=== PATIENT | female | born 1930 | race Caucasian/White ===

== ENCOUNTER 2018-03-09 11:40 | Inpatient (IN) | payer OTHER, BC ==
[2018-03-09 11:51] VITALS: BMI 24.1
--- NOTE | 2018-03-09 12:19 | PDOC ---
History of Present Illness <Sumi Hogue - Last Filed: 03/09/18 13:37> <Harshad Palomino - Last Filed: 03/16/18 17:31> - General Chief Complaint: Chest Pain Stated Complaint: CHEST PAIN Time Seen by Provider: 03/09/18 12:06 - History of Present Illness Initial Comments: This patient is an 87 year old female with PMHx of hypertension, hyperlipidemia , diverticulitis and herniated disc L4 & L5 , who presents with 5 days of chest pain. Patient describes the chest pain as mid-sternal, moves around and sometimes radiates to left shoulder, sometimes radiates to right shoulder, constant, pressure-like, worse with inhalation, rates 8/10. Patient states that she cant lie flat because of her chest pain and has to sleep with 2 large and 1 small pillow. She also admits to associated nausea, nonproductive cough (for a couple of weeks). She states that she was not on any antibiotics recently and was on a nasal spray and Robitussin for her cough/congestion. She denies any vomiting, fever, chills, or diarrhea. Denies recent travel or sick contacts. Allergies: Ciprofloxacin, Ciprofloxacin HCl. Patient reports that she does not tolerate Narcotics/Pain Medications well. Past Surgical History: prolapse bowel in 2010, bladder lift Social History: Former smoker (quit 50 years ago). Denies alcohol or drug use. PCP: Dr. Santi Cbua (Sumi Hogue) Past History <Sumi Hogue - Last Filed: 03/09/18 13:37> - Past Medical History Cancer: (TACHYCARDIA) Cardiac Disorders: Yes COPD: No CHF: No GI Disorders: Yes (ACID REFLUX DIVERTICULITIS) HTN: Yes Hypercholesterolemia: Yes (CAN'T TOLERATE MEDICATION) - Immunization History Immunization Up to Date: No - Suicide/Smoking/Psychosocial Hx Smoking History: Never smoked Have you smoked in the past 12 months: No If you are a former smoker, when did you quit?: 50YRS AGO Information on smoking cessation initiated: No Hx Alcohol Use: No Drug/Substance Use Hx: No Substance Use Type: None Hx Substance Use Treatment: No <Harshad Palomino - Last Filed: 03/16/18 17:31> - Past Medical History Allergies/Adverse Reactions: Allergies Allergy/AdvReac Type Severity Reaction Status Date / Time levofloxacin [From Levaquin] Allergy Verified 03/14/18 12:32 ciprofloxacin [From Cipro] AdvReac "NAUSEA" Verified 03/14/18 12:32 ciprofloxacin HCl AdvReac "NAUSEA" Verified 03/14/18 12:32 [From Cipro] NARCOTICS AdvReac Nausea Uncoded 03/14/18 12:32 PAIN MEDS AdvReac Nausea Uncoded 03/14/18 12:32 Home Medications: Ambulatory Orders Amlodipine Besylate 7.5 mg PO DAILY 03/09/18 Metoprolol Succinate 25 mg PO DAILY 03/09/18 Potassium Chloride 10 meq PO DAILY 03/09/18 Ranitidine [Zantac -] 150 mg PO DAILY 03/09/18 Ascorbic Acid [C-500] 500 mg PO DAILY 03/15/18 Beta-Carotene(A)-Vits C and E [E-400 C-500 & Beta Carotene] 1 tab PO DAILY 03/15 Biotin 5,000 mcg PO DAILY 03/15/18 Calcium Carb, Citrate/Vit D3 [Calcium + D3 ER Tablet] 1 tab PO DAILY 03/15/18 Co Q-10 100 mg Softgel 100 mg PO DAILY 03/15/18 Ferrous Sulfate [Feosol] 350 mg PO DAILY 03/15/18 Flaxseed Oil [Flaxseed] 1,000 mg PO DAILY 03/15/18 Luz Maria Root 550 mg PO DAILY 03/15/18 Glucosamine/MSM/Chondroitin A [Glucosamine Chondroit MSM Tab] 1 tab PO DAILY Magnesium 250 mg PO DAILY 03/15/18 Zinc 15 mg Lozenges 15 mg PO DAILY 03/15/18 Review of Systems <Sumi Hogue - Last Filed: 03/09/18 13:37> <Harshad Palomino - Last Filed: 03/16/18 17:31> - Review of Systems Comments:: CONSTITUTIONAL: No fever, no chills, no fatigue EYES: No visual changes ENT: No ear pain, no sore throat CARDIOVASCULAR: +chest pain, no palpitations RESPIRATORY: +cough, no SOB GI: No abdominal pain, +nausea, no vomiting, no constipation, no diarrhea GENITOURINARY: No dysuria, no frequency, no hematuria MUSKULOSKELETAL: No back pain, no joint pain, no myalgias SKIN: No rash NEURO: No headache (Sumi Hogue) *Physical Exam <Sumi Hogue - Last Filed: 03/09/18 13:37> <Harshad Palomino - Last Filed: 03/16/18 17:31> - Vital Signs Last Vital Signs Temp Pulse Resp BP Pulse Ox 97.6 F 113 H 16 111/79 97 03/10/18 08:13 03/10/18 08:13 03/10/18 08:13 03/10/18 08:13 03/10/18 09:00 - Physical Exam Comments: CONSTITUTIONAL: Well-appearing; well-nourished; in no apparent distress HEAD: Normocephalic; atraumatic EYES: PERRL; EOM intact CARD: Tachycardic. 2/6 systolic ejection murmur. RESP: Normal chest excursion with respiration; breath sounds clear and equal bilaterally; no wheezes, rhonchi, or rales ABD: Soft, non-distended; non-tender; no palpable organomegaly, no palpable hernias EXT: Normal ROM in all four extremities; non-tender to palpation; distal pulses intact SKIN: Warm, dry, no rash NEURO: No focal neurological deficiencies. (Sumi Hogue) Heart Score/ECG Review <Sumi Hogue - Last Filed: 03/09/18 13:37> - History History: Slightly suspicious - Electrocardiogram EKG: Non specific repolarization disturbance - Age Age: >/= 65 - Risk Factors Risk Factors Heart Score: Yes Hx Hypercholesterolemia, Yes Hx Hypertension Based on the list above the patient has:: 1-2 risk factors - Troponin Troponin: </= normal limit - Score Heart Score - Total: 4 <Harshad Palomino - Last Filed: 03/16/18 17:31> - ECG Intrepretation Comment:: EKG interpretation Normal axis Sinus tachycardia Vent rate 114 bpm taken 09-Mar-2018 11:41:14 (Sumi Hogue) ED Treatment Course - LABORATORY CBC & Chemistry Diagram: 03/09/18 13:15 03/09/18 13:15 <Sumi Hogue - Last Filed: 03/09/18 13:37> - LABORATORY CBC & Chemistry Diagram: 03/10/18 06:30 03/10/18 06:30 <Harshad Palomino - Last Filed: 03/16/18 17:31> - ADDITIONAL ORDERS Additional order review: 03/09/18 13:15 RBC 4.28 MCV 88.0 MCHC 34.3 RDW 12.7 MPV 8.4 Neutrophils % 78.4 Lymphocytes % 10.9 D Monocytes % 10.1 Eosinophils % 0.0 D Basophils % 0.6 - RADIOLOGY Radiology Studies Ordered: Category Date Time Status CHEST CT WITH CONTRAST [CT] Stat CT Scan 03/09/18 15:08 Completed CHEST X-RAY PORTABLE* [RAD] Stat Radiology 03/09/18 12:56 Completed - Medications Given in the ED: ED Medications Discontinued Medications Generic Name Dose Route Start Last Admin Trade Name Freq PRN Reason Stop Dose Admin Acetaminophen 650 mg 03/09/18 19:54 03/10/18 05:43 Tylenol - PO 650 mg Q4H PRN Administration PAIN Ascorbic Acid 500 mg 03/09/18 22:00 03/09/18 23:21 Vitamin C - PO Not Given BID CK Aspirin 162 mg 03/09/18 13:29 03/09/18 13:35 Asa - PO 03/09/18 13:30 162 mg ONCE ONE Administration Azithromycin 500 mg 03/09/18 22:00 03/09/18 23:21 Zithromax - PO 03/15/18 22:01 500 mg HS CK Administration Guaifenesin 600 mg 03/09/18 18:29 03/09/18 21:10 Mucinex - PO 03/09/18 18:30 600 mg ONCE ONE Administration Guaifenesin 10 ml 03/09/18 21:27 03/09/18 23:17 Robitussin - PO 10 ml Q6H PRN Administration COUGH Sodium Chloride 500 mls @ 500 mls/hr 03/09/18 15:08 03/09/18 15:18 Normal Saline - IV 03/09/18 16:07 500 mls/hr ASDIR STA Administration Sodium Chloride 1,000 mls @ 50 mls/hr 03/09/18 20:00 03/09/18 21:38 Normal Saline - IV 03/10/18 19:57 50 mls/hr ASDIR CK Administration Levofloxacin 750 mg 03/09/18 21:30 03/09/18 21:39 Levaquin - PO Not Given DAILY CK Nitroglycerin 0.5 inch 03/09/18 13:29 03/09/18 13:35 Nitro-Bid 2% Paste - TD 03/09/18 13:30 0.5 inch ONCE ONE Administration Regadenoson 0.4 mg 03/10/18 12:54 03/11/18 08:14 Lexiscan IVPUSH 03/10/18 12:55 0.4 mg ONCE ONE Administration Medical Decision Making <Sumi Hogue - Last Filed: 03/09/18 13:37> <Harshad Palomino - Last Filed: 03/16/18 17:31> - Medical Decision Making 03/09/18 15:53 87-year-old female with history of hypertension presents with atraumatic chest pressure that has persisted for the past 4 days and is partially pleuritic. Patient's symptoms are exacerbated with supine positioning and her improved while sitting up. EKG shows sinus tachycardia without evidence of acute ischemia right sided heart strain. Chest x-ray reveals left-sided pleural effusion and an elevated left hemidiaphragm. D-dimer is elevated. Will rule out PE with CTA. If no PEs identified, we'll place and of for serial cardiac enzymes with a heart score 5. (Harshad Palomino) *DC/Admit/Observation/Transfer <Sumi Hogue - Last Filed: 03/09/18 13:37> <Harshad Palomino - Last Filed: 03/16/18 17:31> Diagnosis at time of Disposition: Chest pain - Discharge Dispostion Condition at time of disposition: Stable - Attestations Scribe Attestion: 03/09/18 12:57 Documentation prepared by Sumi Hogue, acting as bilingual medical assistant for Harshad Palomino MD. (Sumi Hogue) Physician Attestion: 03/09/18 15:53 The documentation was prepared by the scribe under my direct supervision. I have reviewed the documentation which correctly represents the findings, medical decision-making and critical action taken by me. (Harshad Palomino)
[2018-03-09] MEDS ORDERED: NITROGLYCERIN 2% OINTMENT - 1GM PACKET TD ONE ×2 (13:29→13:32)
[2018-03-09] MEDS ORDERED: ASPIRIN 81 MG CHEWABLE TABLETS PO ONE (13:29)
[2018-03-09 13:30] LABS: BASO % 0.6 % (0-2.0); HEMATOCRIT 37.7 % (32.4-45.2); HEMOGLOBIN 12.9 GM/dL (10.7-15.3); LYMPH % 10.9 % (8-40); MCH 30.2 pg (25.7-33.7); MCHC 34.3 g/dl (32.0-36.0); MEAN PLT VOLUME 8.4 fl (7.5-11.1); MONO % 10.1 % (3.8-10.2); NEUT % 78.4 % (42.8-82.8); PLATELET COUNT 237 K/MM3 (134-434); RBC 4.28 M/mm3 (3.60-5.2); RDW 12.7 % (11.6-15.6); WHITE BLOOD COUNT 8.7 K/mm3 (4.0-10.0)
[2018-03-09] MEDS ORDERED: ASPIRIN 81 MG CHEWABLE TABLETS ONE (13:32)
[2018-03-09 13:47] LABS: INR 1.08 (0.83-1.09); PROTHROMBIN TIME (PATIENT) 12.7 SEC (9.7-13.0)
[2018-03-09 14:13] LABS: ALBUMIN 3.4 g/dl (3.4-5.0); ALK PHOS 84 U/L (45-117); ANION GAP 9 MMOL/L (8-16); BILIRUBIN,TOTAL 0.9 mg/dL (0.2-1); BLOOD UREA NITROGEN 17 mg/dL (7-18); CALCIUM 9.1 mg/dL (8.5-10.1); CHLORIDE 98 mmol/L (98-107); CO2 26 mmol/L (21-32); CREATININE 1.2 mg/dL (0.55-1.3); GLUCOSE,RANDOM 121 mg/dL (74-106); POTASSIUM 4.5 mmol/L (3.5-5.1); SGOT/AST 21 U/L (15-37); SGPT/ALT 24 U/L (13-61); SODIUM 133 mmol/L (136-145); TOT PROT 8.1 g/dl (6.4-8.2)
[2018-03-09] MEDS ORDERED: SODIUM CHLORIDE 500 ML IV STA (15:08)
--- NOTE | 2018-03-09 15:17 | EKG ---
Test Reason : Blood Pressure : / mmHG Vent. Rate : 114 BPM Atrial Rate : 114 BPM P-R Int : 132 ms QRS Dur : 074 ms QT Int : 296 ms P-R-T Axes : 023 -12 113 degrees QTc Int : 407 ms POOR DATA QUALITY, INTERPRETATION MAY BE ADVERSELY AFFECTED SINUS TACHYCARDIA ABNORMAL QRS-T ANGLE, CONSIDER PRIMARY T WAVE ABNORMALITY ABNORMAL ECG WHEN COMPARED WITH ECG OF 19-JUL-2016 04:02, VENT. RATE HAS INCREASED BY 38 BPM NONSPECIFIC T WAVE ABNORMALITY NO LONGER EVIDENT IN INFERIOR LEADS T WAVE INVERSION NO LONGER EVIDENT IN ANTERIOR LEADS Confirmed by TUCKER LOWRY, CHARLIE ([id number]) on 03/09/2018 3:16:42 PM Referred By: Confirmed By:CHARLIE CEBALLOS MD
--- NOTE | 2018-03-09 18:25 | PDOC ---
*Physical Exam - Vital Signs Last Vital Signs Temp Pulse Resp BP Pulse Ox 98.1 F 110 H 16 136/88 95 03/09/18 11:47 03/09/18 14:00 03/09/18 14:00 03/09/18 14:00 03/09/18 14:00 - Physical Exam Comments: 03/09/18 18:27 Gen: aaox3, ambulates with a steady gait heart: +s1s2 reg lungs: cta b/l abd: soft, nt/nd, +bs ext: no c/c/e ED Treatment Course - LABORATORY CBC & Chemistry Diagram: 03/09/18 13:15 03/09/18 13:15 - ADDITIONAL ORDERS Additional order review: Laboratory Results 03/09/18 03/09/18 03/09/18 13:15 13:15 13:15 PT with INR 12.70 INR 1.08 D-Dimer 780 H Sodium 133 L Potassium 4.5 Chloride 98 Carbon Dioxide 26 Anion Gap 9 BUN 17 Creatinine 1.2 Creat Clearance w eGFR 42.40 Random Glucose 121 H Calcium 9.1 Total Bilirubin 0.9 AST 21 ALT 24 Alkaline Phosphatase 84 Creatine Kinase 65 Troponin I < 0.02 Total Protein 8.1 Albumin 3.4 03/09/18 13:15 RBC 4.28 MCV 88.0 MCHC 34.3 RDW 12.7 MPV 8.4 Neutrophils % 78.4 Lymphocytes % 10.9 D Monocytes % 10.1 Eosinophils % 0.0 D Basophils % 0.6 - Medications Given in the ED: ED Medications Discontinued Medications Generic Name Dose Route Start Last Admin Trade Name Freq PRN Reason Stop Dose Admin Aspirin 162 mg 03/09/18 13:29 03/09/18 13:35 Asa - PO 03/09/18 13:30 162 mg ONCE ONE Administration Sodium Chloride 500 mls @ 500 mls/hr 03/09/18 15:08 03/09/18 15:18 Normal Saline - IV 03/09/18 16:07 500 mls/hr ASDIR STA Administration Nitroglycerin 0.5 inch 03/09/18 13:29 03/09/18 13:35 Nitro-Bid 2% Paste - TD 03/09/18 13:30 0.5 inch ONCE ONE Administration Medical Decision Making - Medical Decision Making 03/09/18 18:26 a/p: 87yo female with cp -pt signed out pending ct imaigng -ct shows a small pericardial effusion and atelectasis in LLL -pt with recent URI - bedside ultrasound shows small pericardial effusion without tamponade physiology -will place pt in obs for eval of cp -case discussed with Mena from [facility] - PMD dr. cuba who is covered by [facility] who is covered by [employer] overnight. -accepts pt to service *DC/Admit/Observation/Transfer Diagnosis at time of Disposition: Chest pain - Discharge Dispostion Decision to Admit order: Yes - Referrals Referrals: Santi Cuba MD [Primary Care Provider] - - Patient Instructions - Post Discharge Activity - Attestations Physician Attestion: 03/09/18 18:25 I, Dr. Nikky Wells, DO, attest that this document has been prepared under my direction and personally reviewed by me in its entirety. I further attest, that it accurately reflects all work, treatment, procedures and medical decision -making performed by me.
[2018-03-09] MEDS ORDERED: guaiFENesin 600 MG TABLET.ER (FP) PO ONE (18:29)
--- NOTE | 2018-03-09 19:51 | HP ---
CHIEF COMPLAINT: PCP: [facility] HISTORY OF PRESENT ILLNESS: Patient is a 87 y/o CF with a PMH significant for HTN, GERD presents with atypical chest pain. She has no prior CV history; last stress test 5 years ago and she has since fractured her hip so she wouldn't be able to do treadmill again. No prior cath records or history of CA or stroke. She was brought to the ER today for chest pain that would intermittently radiate to the b/l shoulders x1 day with this severity but that started developing on wednesday that is waxing and waning and got to be moderate in severity. Nothing made it better or worse, hadn't had pain like that previously. The pain is associated with a cough; she was seen with a phone visit by her PCP ~14 days ag No SOB, syncope, etc. Hemodynamics stable, EKG done in ER without convincing ST-T changes, CXR without convincing findings. Initial troponin negative; did have elevated D Dimer so she had CTA done. CTA showed a small pericardial effusion, lung nodule, possible atelectic appearing changes in the lower lobe. Admitting to the medicine service Recent Travel: None PAST MEDICAL HISTORY: HTN, GERD PAST SURGICAL HISTORY: Hip replacement Social History: Smoking: Denies Alcohol: Denies Drugs: Denies Family History: Allergies ciprofloxacin [From Cipro] Adverse Reaction (Verified 03/09/18 12:52) "NAUSEA" ciprofloxacin HCl [From Cipro] Adverse Reaction (Verified 03/09/18 12:52) "NAUSEA" NARCOTICS Adverse Reaction (Uncoded 03/09/18 12:52) Nausea PAIN MEDS Adverse Reaction (Uncoded 03/09/18 12:52) Nausea HOME MEDICATIONS: Home Medications Medication Instructions Recorded Ascorbic Acid [Vitamin C -] 500 mg PO BID tablet 07/24/16 Amlodipine Besylate 7.5 mg PO DAILY 03/09/18 Metoprolol Succinate 25 mg PO DAILY 03/09/18 Potassium Chloride 10 meq PO DAILY 03/09/18 Ranitidine [Zantac -] 150 mg PO DAILY 03/09/18 REVIEW OF SYSTEMS 10 item ROS done and is negative aside from HPI PHYSICAL EXAMINATION Vital Signs - 24 hr 03/09/18 03/09/18 11:47 14:00 Temperature 98.1 F Pulse Rate 111 H Pulse Rate [ 110 H Left Radial] Respiratory 16 16 Rate Blood Pressure 136/91 Blood Pressure 136/88 [Right Arm] O2 Sat by Pulse 95 Oximetry (%) GENERAL: Awake, alert, and fully oriented, in no acute distress. HEAD: Normal with no signs of trauma. EYES: Pupils equal, round and reactive to light, extraocular movements intact, sclera anicteric, conjunctiva clear. No lid lag. EARS, NOSE, THROAT: Ears normal, nares patent, oropharynx clear without exudates. Moist mucous membranes. NECK: Normal range of motion, supple without lymphadenopathy, JVD, or masses. LUNGS: Breath sounds equal, clear to auscultation bilaterally. No wheezes, and no crackles. No accessory muscle use. HEART: Regular rate and rhythm, normal S1 and S2 without murmur, rub or gallop. Reproducible chest pain ABDOMEN: Soft, nontender, not distended, normoactive bowel sounds, no guarding, no rebound, no masses. No hepatomegaly or splenomegaly. MUSCULOSKELETAL: Normal range of motion at all joints. No bony deformities or tenderness. No CVA tenderness. UPPER EXTREMITIES: 2+ pulses, warm, well-perfused. No cyanosis. No clubbing. No peripheral edema. LOWER EXTREMITIES: 2+ pulses, warm, well-perfused. No calf tenderness. No peripheral edema. NEUROLOGICAL: Cranial nerves II-XII intact. Normal speech. Normal gait. PSYCHIATRIC: Cooperative. Good eye contact. Appropriate mood and affect. SKIN: Warm, dry, normal turgor, no rashes or lesions noted, normal capillary refill. Laboratory Results - last 24 hr 03/09/18 03/09/18 03/09/18 13:15 13:15 13:15 WBC 8.7 RBC 4.28 Hgb 12.9 Hct 37.7 MCV 88.0 MCH 30.2 MCHC 34.3 RDW 12.7 Plt Count 237 MPV 8.4 Absolute Neuts (auto) 6.8 Neutrophils % 78.4 Lymphocytes % 10.9 D Monocytes % 10.1 Eosinophils % 0.0 D Basophils % 0.6 Nucleated RBC % 0 PT with INR 12.70 INR 1.08 D-Dimer 780 H Sodium Potassium Chloride Carbon Dioxide Anion Gap BUN Creatinine Creat Clearance w eGFR Random Glucose Calcium Total Bilirubin AST ALT Alkaline Phosphatase Creatine Kinase Troponin I Total Protein Albumin 03/09/18 13:15 WBC RBC Hgb Hct MCV MCH MCHC RDW Plt Count MPV Absolute Neuts (auto) Neutrophils % Lymphocytes % Monocytes % Eosinophils % Basophils % Nucleated RBC % PT with INR INR D-Dimer Sodium 133 L Potassium 4.5 Chloride 98 Carbon Dioxide 26 Anion Gap 9 BUN 17 Creatinine 1.2 Creat Clearance w eGFR 42.40 Random Glucose 121 H Calcium 9.1 Total Bilirubin 0.9 AST 21 ALT 24 Alkaline Phosphatase 84 Creatine Kinase 65 Troponin I < 0.02 Total Protein 8.1 Albumin 3.4 ASSESSMENT/PLAN: Mrs. Franco is an 87 y/o CF presenting with atypical chest pain; she is moderate risk for CAD. She presents after 14 days of cough and congestion. 1) Chest Pain, rule out ACS -Pt. with atypical cardiac chest pain but moderate risk due to age and HTN. -Monitor on telemetry, trend troponin -Due to h/o hip replacement Lexiscan in AM. Consider CV consultation if deemed appropriate. -Other causes could likely be chest wall pain from coughing, costochondritis, etc. 2) Upper Respiratory Tract Infection -14 days in length putting her at risk for bacterial superinfection; thought the LLL changes on CT could represent atelectesis, there is concern for underlying pneumonia due to her sx. Thus we will elect to cover with a 7 day course of levaquin and check urine pneumococcus, legionella, and sputum cultures. PRN guaifenisen. 3) HTN -Continue home meds 4) GERD -Continue home meds 5) Osteoarthritis -Stable, PRN APAP Full Code Visit type - Emergency Visit Emergency Visit: No - New Patient This patient is new to me today: Yes Date on this admission: 03/09/18 - Critical Care Critical Care patient: No
[2018-03-09] MEDS ORDERED: NITROGLYCERIN SUBLINGUAL 1/150 0.4 MG TAB SL PRN (19:54)
[2018-03-09] MEDS ORDERED: SODIUM CHLORIDE 1,000 ML IV SCH (20:00)
[2018-03-09] MEDS ORDERED: guaiFENesin 200 MG/10 ML 10 ML UNIT-DOSE CUPS PO PRN (21:27)
[2018-03-09] MEDS ORDERED: AZITHROMYCIN 250 MG TABLET PO SCH ×2 (22:00)
[2018-03-09] MEDS ORDERED: ASCORBIC ACID 500 MG TABLET (FP) PO SCH (22:00)
[2018-03-09 22:38] LABS: CHOLESTEROL 195 mg/dL (50-200); HDL CHOLESTEROL 59 mg/dL (40-60); TRIGLYCERIDES 102 mg/dL (0-150)
[2018-03-09] MEDS ORDERED: AZITHROMYCIN 250 MG TABLET ONE (22:52)
[2018-03-09] MEDS ORDERED: ACETAMINOPHEN 325 MG TABLET (FP) ONE (23:12)
[2018-03-09] MEDS ORDERED: guaiFENesin 200 MG/10 ML 10 ML UNIT-DOSE CUPS ONE (23:14)
[2018-03-09] MEDS: ACETAMINOPHEN 325 MG TABLET (FP) PO PRN (23:18)
[2018-03-10] MEDS ORDERED: ACETAMINOPHEN 325 MG TABLET (FP) ONE (05:40)
[2018-03-10] MEDS: ACETAMINOPHEN 325 MG TABLET (FP) PO PRN (05:43)
[2018-03-10 06:57] LABS: BASO % 0.2 % (0-2.0); EOS % 0.3 % (0-4.5); HEMATOCRIT 34.4 % (32.4-45.2); HEMOGLOBIN 11.6 GM/dL (10.7-15.3); LYMPH % 5.9 % (8-40); MCH 29.5 pg (25.7-33.7); MCHC 33.6 g/dl (32.0-36.0); MEAN CELL VOLUME 87.9 fl (80-96); MEAN PLT VOLUME 7.9 fl (7.5-11.1); MONO % 8.2 % (3.8-10.2); NEUT % 85.4 % (42.8-82.8); PLATELET COUNT 188 K/MM3 (134-434); RBC 3.91 M/mm3 (3.60-5.2); RDW 13.2 % (11.6-15.6); WHITE BLOOD COUNT 8.6 K/mm3 (4.0-10.0)
[2018-03-10 07:25] LABS: ALBUMIN 2.7 g/dl (3.4-5.0); ALK PHOS 73 U/L (45-117); ANION GAP 7 MMOL/L (8-16); BILIRUBIN,TOTAL 0.9 mg/dL (0.2-1); BLOOD UREA NITROGEN 12 mg/dL (7-18); CALCIUM 7.4 mg/dL (8.5-10.1); CHLORIDE 106 mmol/L (98-107); CO2 23 mmol/L (21-32); CREATININE 0.9 mg/dL (0.55-1.3); GLUCOSE,RANDOM 110 mg/dL (74-106); MAGNESIUM 1.8 mg/dL (1.8-2.4); POTASSIUM 3.5 mmol/L (3.5-5.1); SGOT/AST 14 U/L (15-37); SGPT/ALT 16 U/L (13-61); SODIUM 136 mmol/L (136-145); TOT PROT 6.5 g/dl (6.4-8.2)
[2018-03-10 07:38] LABS: INR 1.26 (0.83-1.09); PROTHROMBIN TIME (PATIENT) 14.9 SEC (9.7-13.0)
[2018-03-10 08:14] VITALS: BP 111/79; PULSE 113; TEMP 97.6
--- NOTE | 2018-03-10 08:42 | PN ---
Progress Note (short form) - Note Progress Note: Dr. Maddox to document today. Cardiology consult placed.
[2018-03-10] MEDS ORDERED: ENOXAPARIN NA (PORCINE) 30 MG/0.3 ML DISP.SYRIN SQ SCH (10:00)
[2018-03-10] MEDS ORDERED: amLODIPine BESYLATE 5 MG TABLET (FP) PO SCH (10:00)
[2018-03-10] MEDS ORDERED: RANITIDINE HCL 150 MG TABLET (FP) PO SCH (10:00)
[2018-03-10] MEDS ORDERED: ASPIRIN COATED 81 MG TABLET.EC PO SCH (10:00)
[2018-03-10] MEDS ORDERED: metoPROLOL SUCCINATE 25 MG TAB.SR.24H (FP) PO SCH (10:00)
[2018-03-10] MEDS ORDERED: AMLODIPINE BESYLATE 5 MG, AMLODIPINE BESYLATE 2.5 MG PO SCH (10:00)
--- NOTE | 2018-03-10 11:41 | CON.CARD ---
Cardiology Consult (text) - Consultation Consultation Note: CC: cp hpi: 87 yo f with hypertension, hyperlipidemia, diverticulitis, GERD, diverticulitis, herniated disc, who presents with cp. Recent URI with cough, improving. Then yesterday noticed achey pain in shoulders, left and right chest , left neck. Worse with cough and deep breaths. No sob palps dizzy loc pnd orthopnea le edema. PMHx: per hpi Past Surgical History: hip Social History: Former smoker (quit 50 years ago). Denies alcohol or drug use. Family hx: sister with MN in her 40's. Sister with chf. ROS: per hpi; no nvd fever vision changes, muscle pain gib hematuria dysuria meds: Home Medications Medication Instructions Recorded Ascorbic Acid [Vitamin C -] 500 mg PO BID tablet 07/24/16 Amlodipine Besylate 7.5 mg PO DAILY 03/09/18 Metoprolol Succinate 25 mg PO DAILY 03/09/18 Potassium Chloride 10 meq PO DAILY 03/09/18 Ranitidine [Zantac -] 150 mg PO DAILY 03/09/18 pe: Vital Signs Period Temp Pulse Resp BP Sys/Hurtado Pulse Ox Last 24 Hr 97.6 F-98.7 F 80-113 16-16 98-136/76-91 95-97 NAD, calm JVD flat, neck supple CTAB, nl effort RRR nl s1, s2 no mrg + bs soft nt nd ext without e/c/c + dp/pt no carotid bruits aaox3 no jaundice, diaphoresis Laboratory Last Values WBC 8.6 K/mm3 (4.0-10.0) 03/10/18 06:30 RBC 3.91 M/mm3 (3.60-5.2) 03/10/18 06:30 Hgb 11.6 GM/dL (10.7-15.3) 03/10/18 06:30 Hct 34.4 % (32.4-45.2) 03/10/18 06:30 MCV 87.9 fl (80-96) 03/10/18 06:30 MCH 29.5 pg (25.7-33.7) 03/10/18 06:30 MCHC 33.6 g/dl (32.0-36.0) 03/10/18 06:30 RDW 13.2 % (11.6-15.6) 03/10/18 06:30 Plt Count 188 K/MM3 (134-434) D 03/10/18 06:30 MPV 7.9 fl (7.5-11.1) 03/10/18 06:30 Absolute Neuts (auto) 7.4 K/mm3 (1.5-8.0) 03/10/18 06:30 Neutrophils % 85.4 % (42.8-82.8) H 03/10/18 06:30 Lymphocytes % 5.9 % (8-40) L D 03/10/18 06:30 Monocytes % 8.2 % (3.8-10.2) 03/10/18 06:30 Eosinophils % 0.3 % (0-4.5) D 03/10/18 06:30 Basophils % 0.2 % (0-2.0) 03/10/18 06:30 Nucleated RBC % 0 % (0-0) 03/10/18 06:30 PT with INR 14.90 SEC (9.7-13.0) H 03/10/18 06:30 INR 1.26 (0.83-1.09) H 03/10/18 06:30 D-Dimer 780 ng/ml (0-500) H 03/09/18 13:15 Sodium 136 mmol/L (136-145) 03/10/18 06:30 Potassium 3.5 mmol/L (3.5-5.1) 03/10/18 06:30 Chloride 106 mmol/L (98-107) 03/10/18 06:30 Carbon Dioxide 23 mmol/L (21-32) 03/10/18 06:30 Anion Gap 7 MMOL/L (8-16) L 03/10/18 06:30 BUN 12 mg/dL (7-18) 03/10/18 06:30 Creatinine 0.9 mg/dL (0.55-1.3) 03/10/18 06:30 Creat Clearance w eGFR 59.09 (>60) 03/10/18 06:30 Random Glucose 110 mg/dL (74-106) H 03/10/18 06:30 Hemoglobin A1c % 5.6 % (4.2-6.3) 03/09/18 20:45 Calcium 7.4 mg/dL (8.5-10.1) L 03/10/18 06:30 Magnesium 1.8 mg/dL (1.8-2.4) 03/10/18 06:30 Total Bilirubin 0.9 mg/dL (0.2-1) 03/10/18 06:30 AST 14 U/L (15-37) L 03/10/18 06:30 ALT 16 U/L (13-61) 03/10/18 06:30 Alkaline Phosphatase 73 U/L (45-117) 03/10/18 06:30 Creatine Kinase 21 IU/L (26-192) L 03/10/18 01:00 Troponin I 0.02 ng/ml (0.00-0.05) 03/10/18 01:00 Total Protein 6.5 g/dl (6.4-8.2) 03/10/18 06:30 Albumin 2.7 g/dl (3.4-5.0) L 03/10/18 06:30 Triglycerides 102 mg/dL (0-150) 03/09/18 20:45 Cholesterol 195 mg/dL (50-200) 03/09/18 20:45 Total LDL Cholesterol 125 mg/dL (5-100) H 03/09/18 20:45 HDL Cholesterol 59 mg/dL (40-60) 03/09/18 20:45 ecg: sr nl intervals no ischemic changes CTA chest: no pe, no chf, small peric eff echo 07/2016: nl lv/rv. 1+ lae. 1+ MAC. mod TR. RVSP 40-50. echo 07/2016: limited bubble study, no shunts seen echo 02/2018: nl lv/rv, no sig valve path, nl rvsp, mild peric eff, no tamp stress 07/2016: no ischemic changes. no sx's. nl perfusion. ef 85% mibi 02/2018: nl mpi, nl lvef a/p: 87 yo f with hypertension, hyperlipidemia, diverticulitis, GERD, diverticulitis, herniated disc, who presents with cp. cp: -atypical, likely msk s/p recent URI -trops negx3 -ecg unremarkable -echo and nuclear stress test today both unremarkable htn: -cont home meds hld: -stable pericardial eff: -small effusion, no tamponade, possibly related to recent viral illness -check repeat echo as outpt in 2 weeks [facility] [place] for dc
--- NOTE | 2018-03-10 12:07 | EKG ---
Test Reason : Blood Pressure : / mmHG Vent. Rate : 109 BPM Atrial Rate : 109 BPM P-R Int : 136 ms QRS Dur : 082 ms QT Int : 336 ms P-R-T Axes : 025 -09 112 degrees QTc Int : 452 ms SINUS TACHYCARDIA NONSPECIFIC ST AND T WAVE ABNORMALITY ABNORMAL ECG WHEN COMPARED WITH ECG OF 09-MAR-2018 11:41, NONSPECIFIC T WAVE ABNORMALITY NOW EVIDENT IN ANTERIOR LEADS Confirmed by LOAN LOWRY, LALO ([id number]) on 03/10/2018 12:07:40 PM Referred By: KINGSLEY CARDONA Confirmed By:LALO CATES MD
[2018-03-10] MEDS ORDERED: REGADENOSON 0.4 MG/5 ML PRE-FILLED SYRINGE IVPUSH ONE ×2 (12:54)
--- NOTE | 2018-03-10 13:28 | ECHO ---
Name: CLARA HANSEN Exam:Adult Echocardiogram Study Date: 03/10/2018 10:17 AM Age: 87 yrs Reason For Study: Pericardial Effusion MMode/2D Measurements & Calculations IVSd: 0.85 cm Ao root diam: 3.3 cm LVIDd: 4.4 cm LA dimension: 4.0 cm LVIDs: 2.6 cm ACS: 1.7 cm LVPWd: 0.94 cm IVSs: 1.3 cm LVPWs: 1.0 cm EDV(Teich): 89.0 ml ESV(Teich): 25.5 ml Doppler Measurements & Calculations MV E max tramaine: 59.5 cm/sec Ao V2 max: 134.8 cm/sec MV A max tramaine: 104.6 cm/sec Ao max P.3 mmHg MV E/A: 0.57 Ao V2 mean: 100.2 cm/sec Ao mean P.5 mmHg Ao V2 VTI: 21.2 cm TR max tramaine: 214.8 cm/sec Med Peak E' Tramaine: 6.2 cm/sec TR max P.5 mmHg Med E/e': 9.5 Lat Peak E' Tramaine: 5.6 cm/sec Lat E/e': 10.7 Procedure A complete two-dimensional transthoracic echocardiogram was performed (2D, M-mode, Doppler and color flow Doppler). Left Ventricle The left ventricular size, thickness and function are normal. The left ventricular ejection fraction is normal. Ejection Fraction = 60-65%. The left ventricular wall motion is normal. Right Ventricle The right ventricle is normal in size and function. Atria Normal left and right atrial size and function. Mitral Valve There is no mitral regurgitation noted. Tricuspid Valve There is trace tricuspid regurgitation. Right ventricular systolic pressure is normal. Aortic Valve No hemodynamically significant valvular aortic stenosis. No aortic regurgitation is present. Pulmonic Valve There is no pulmonic valvular regurgitation. Great Vessels The aortic root is normal size. Pericardium/Pleura There is a mild pericardial effusion. There are no echocardiographic indications of cardiac tamponade . Interpretation Summary The left ventricular size, thickness and function are normal The right ventricle is normal in size and function. There is trace tricuspid regurgitation. There is a mild pericardial effusion. There are no echocardiographic indications of cardiac tamponade. MD Melo Joy 03/10/2018 01:27 PM
--- NOTE | 2018-03-10 15:01 | DS ---
Physical Examination Vital Signs: Vital Signs Temperature 36.4 C 03/10/18 08:13 Pulse Rate 113 H 03/10/18 08:13 Respiratory Rate 16 03/10/18 08:13 Blood Pressure 111/79 03/10/18 08:13 O2 Sat by Pulse Oximetry (%) 97 03/10/18 09:00 Constitutional: Yes: Well Nourished, No Distress, Calm Cardiovascular: Yes: Regular Rate and Rhythm. No: Gallop, Murmur, Rub Respiratory: Yes: Regular, CTA Bilaterally. No: Rales, Rhonchi, Wheezes Gastrointestinal: Yes: Normal Bowel Sounds, Soft. No: Distention, Tenderness Extremities: Yes: WNL Edema: No Labs: CBC, BMP 03/10/18 06:30 03/10/18 06:30 Discharge Summary Reason For Visit: CHEST PAIN Current Active Problems Chest pain (Acute) Hospital Course: 1) Chest Pain, rule out ACS 2) Bronchitis 3) HTN 4) GERD 5) Osteoarthritis Ms Franco is an 87 year old female who presents with chest pain. She was admitted under observation and monitored on telemetry. Cardiac enzymes x3 were sent and negative. ECHO and stress test was performed and also negative. She was seen by cardiology and cleared. Patient has pleurisy and bronchitis. Discussed treatment with her that patient declined secondary to "medication sensitivity". She desires to only take tylenol. Currently she is stable for discharge home with follow up with Dr Cuba for further care. Condition: Stable - Instructions Diet, Activity, Other Instructions: resume previous diet and activity Referrals: Santi Cuba MD [Primary Care Provider] - Melo Joy MD [Staff Physician] - Disposition: HOME - Home Medications Comprehensive Discharge Medication List: Ambulatory Orders Ascorbic Acid [Vitamin C -] 500 mg PO BID tablet 07/24/16 Amlodipine Besylate 7.5 mg PO DAILY 03/09/18 Metoprolol Succinate 25 mg PO DAILY 03/09/18 Potassium Chloride 10 meq PO DAILY 03/09/18 Ranitidine [Zantac -] 150 mg PO DAILY 03/09/18
== END 2018-03-10 16:00 | disposition home or self-care (01) | DRG 313 ==
LOC: JER 11:40 → JERBED 18:28 → OBSVTOIN 19:54
PROVIDERS: ADMIT Internal Medicine; ATTEND Internal Medicine
DX: R07.89 Other chest pain (principal); J98.11 Atelectasis; I31.3 Pericardial effusion (noninflammatory); I10 Essential (primary) hypertension; E78.5 Hyperlipidemia, unspecified; M51.26 Other intervertebral disc displacement, lumbar region; K21.9 Gastro-esophageal reflux disease without esophagitis; J06.9 Acute upper respiratory infection, unspecified; M19.90 Unspecified osteoarthritis, unspecified site; Z96.649 Presence of unspecified artificial hip joint; J40 Bronchitis, not specified as acute or chronic; Z87.891 Personal history of nicotine dependence
CPT/HCPCS: 36415; 71045-TC-FY; 71260-TC; 78452-TC; 80053; 80061; 82550; 83036; 83721; 83735; 84484; 85025; 85379; 85610; 93005; 93010; 93017; 93306-TC; 99285-25; A9502; G0378; J2785; J7030

== ENCOUNTER 2018-03-14 11:32 | Inpatient (IN) | payer OTHER, BC ==
--- NOTE | 2018-03-14 12:13 | PDOC ---
History of Present Illness - General Chief Complaint: Nausea/Vomiting Stated Complaint: COUGH NAUSEA Time Seen by Provider: 03/14/18 11:58 History Source: Patient - History of Present Illness Initial Comments: 03/14/18 12:57 The patient is an 87 year old female with a PMH of HTN, HLD, diverticulitis and L4/L5 herniated disc who presents with 4 days of nausea. Patient states she has been nauseous and had limited PO intake as a result. Daughter @ bedside notes some dry heaves but no emesis. Denies any abdominal pain, diarrhea/ constipation, nausea/vomiting. Patient also notes non-productive cough for the last 2 weeks for which she was evaluated in our ED and diagnosed with pleurisy. Allergy: Floroquinolones (hives) Surgical: appendectomy, hysterectomy Social: Denies toxic habits PMD: Dr. Cuba As per EMR patient was evaluated in our ED on 03/09-03/10/18 at which time she was admitted for chest pain. Cardiac enzymes (-) x3. Patient had stress test and TTE which were normal. CT chest was negative for PE, small pericardial effusion, L lower lobe opacity - possibly atelectasis, less likely PNA. Patient discharged home with supportive care. Past History - Past Medical History Allergies/Adverse Reactions: Allergies Allergy/AdvReac Type Severity Reaction Status Date / Time levofloxacin [From Levaquin] Allergy Verified 03/14/18 12:32 ciprofloxacin [From Cipro] AdvReac "NAUSEA" Verified 03/14/18 12:32 ciprofloxacin HCl AdvReac "NAUSEA" Verified 03/14/18 12:32 [From Cipro] NARCOTICS AdvReac Nausea Uncoded 03/14/18 12:32 PAIN MEDS AdvReac Nausea Uncoded 03/14/18 12:32 Home Medications: Ambulatory Orders Amlodipine Besylate 7.5 mg PO DAILY 03/09/18 Metoprolol Succinate 25 mg PO DAILY 03/09/18 Potassium Chloride 10 meq PO DAILY 03/09/18 Ranitidine [Zantac -] 150 mg PO DAILY 03/09/18 Cancer: (TACHYCARDIA) Cardiac Disorders: Yes COPD: No CHF: No GI Disorders: Yes (ACID REFLUX DIVERTICULITIS) HTN: Yes Hypercholesterolemia: Yes - Immunization History Immunization Up to Date: No - Suicide/Smoking/Psychosocial Hx Smoking History: Never smoked Have you smoked in the past 12 months: No If you are a former smoker, when did you quit?: 50YRS AGO Hx Alcohol Use: No Drug/Substance Use Hx: No Substance Use Type: None Hx Substance Use Treatment: No Review of Systems - Review of Systems Constitutional: Yes: Loss of Appetite. No: Chills, Fever, Weakness HEENTM: No: Blurred Vision, Double Vision Respiratory: No: Cough, Shortness of Breath Cardiac (ROS): No: Chest Pain, Lightheadedness, Palpitations, Syncope ABD/GI: Yes: Nausea, Other (watery loose stools, 2 BM daily). No: Constipated, Vomiting : No: Burning, Dysuria *Physical Exam - Physical Exam General Appearance: Yes: Nourished, Thin HEENT: positive: Normal Voice, Hearing Grossly Normal Neck: positive: Trachea midline, Supple Respiratory/Chest: positive: Lungs Clear, Normal Breath Sounds. negative: Labored Respiration, Rales, Wheezing Cardiovascular: positive: S1, S2. negative: Edema, JVD Gastrointestinal/Abdominal: positive: Normal Bowel Sounds, Soft, Other (RUQ and RLQ TTP ) Musculoskeletal: negative: CVA Tenderness (R), CVA Tenderness (L) Heart Score/ECG Review - ECG Impressions Comment:: 03/14/18 13:50 NSR HR 94, no BARTOLO/STD, flat T waves in V1-V6 consistent with previous ECG ED Treatment Course - LABORATORY CBC & Chemistry Diagram: 03/14/18 12:55 03/14/18 12:55 Medical Decision Making - Medical Decision Making 03/14/18 12:58 87 year old female with nausea and vomiting. H/o recent admission for pleurisy. VS unremarkable. PE shows RUQ and RLQ TTP on deep palpation. DDx is broad given abdominal exam and includes: SBO, cholecystitis, bilary colic, mesenteric ischemia, gastritis, less likely r/o ACS (abdominal pain as angingal equivalent) will obtain Troponin x1. Na 126 will administer 2L IV NaCl. Repeat Na @ 4 hour torie. Troponin (-) x1 No leukocytosis 03/14/18 16:31 Patient @ CT 03/14/18 16:54 CXR shows opacified L hemithorax - ? pleural effusion 03/14/18 17:23 Patient reassed @ bedside Symptomatically improved. Awaiting CT read 03/14/18 18:[address] abdomen shows overdistended bladder - no additional acute pathology. Patient has since urinated UA/Uculture pending GB ultrasound negative for acute cholelithiasis/cholecystitis, small GB polyps noted 03/14/18 18:18 Hospitalist service paged for admission 03/14/18 18:36 Case d/w Dr. Souza, requests repeat Na prior to admission 03/14/18 19:01 Repeat Na pending Patient tolerating PO intake, symptomatically improved. Patient signed out to Dr. Gupta (Resident) and Dr. Hancock (Attending). *DC/Admit/Observation/Transfer Diagnosis at time of Disposition: Nausea - Discharge Dispostion Condition at time of disposition: Fair - Referrals Referrals: Santi Cuba MD [Primary Care Provider] - - Patient Instructions - Post Discharge Activity
--- NOTE | 2018-03-14 12:17 | PDOC ---
Attending Attestation - HPI HPI: 03/14/18 14:02 The patient is an 87 year old female with a past medical history of hypertension , diverticulitis, hyperlipidemia, and l4/l5 herniated disc who presents to the emergency department for evaluation of nausea. Patient reports a 4 day history of decreased PO intake secondary to vomiting. Patient reports onset of abdominal pain when coughing strenuously. She reports symptoms started after being discharged last week. Denies fevers, chills, diarrhea, and constipation. - Physicial Exam PE: Vitals: Triage Vital signs reviewed General Appearance: no acute distress, well nourished well developed, Head: Atraumatic, normocephalic Neck: Supple Chest Wall: Nontender Cardiac: Regular rate and rhythm, no murmurs, no rubs, no gallops, Lungs: Clear to auscultation bilateral, good air movement bilaterally, Abdomen: (+)right sided abdominal tenderness to palpation. Extremities: Full range of motion to all extremities, no cyanosis, clubbing, or edema Skin: Warm and dry, no rashes or lesions, no petechiae Psych: normal mood, normal affect - Medical Decision Making 03/14/18 14:06 The patient is an 87 year old female with a past medical history of hypertension , diverticulitis, hyperlipidemia, and l4/l5 herniated disc who presents to the emergency department for evaluation of nausea. Plan: CT scan of abdomen US of abdomen IV fluids <Deidra Fitzgerald - Last Filed: 03/14/18 14:02> - Resident Resident Name: YahairaMadisyn - ED Attending Attestation I have performed the following: I have examined & evaluated the patient, The case was reviewed & discussed with the resident, I agree w/resident's findings & plan, Exceptions are as noted - Medical Decision Making No acute findings on imaging labs notable for hyponatremia we'll admit hospital for correction as well as repeat echo to assess previously noted pericardial effusion <Melo Cottrell - Last Filed: 03/21/18 12:20> Attestations - Attestations Documentation prepared by Deidra Fitzgerald, acting as behavioral medical director for Melo Cottrell MD. <Deidra Fitzgerald - Last Filed: 03/14/18 14:02>
[2018-03-14] MEDS ORDERED: SODIUM CHLORIDE 0.9% 500 ML INFUS.BAG IV ONE ×2 (12:50→14:55)
[2018-03-14] MEDS ORDERED: ONDANSETRON 4 MG/2 ML VIAL IVPUSH ONE (13:05)
[2018-03-14 13:13] LABS: BASO % 0.3 % (0-2.0); EOS % 0.5 % (0-4.5); HEMATOCRIT 33.1 % (32.4-45.2); HEMOGLOBIN 11.3 GM/dL (10.7-15.3); LYMPH % 7.7 % (8-40); MCH 29.9 pg (25.7-33.7); MCHC 34.2 g/dl (32.0-36.0); MEAN CELL VOLUME 87.4 fl (80-96); MEAN PLT VOLUME 7.5 fl (7.5-11.1); MONO % 10.3 % (3.8-10.2); NEUT % 81.2 % (42.8-82.8); PLATELET COUNT 303 K/MM3 (134-434); RBC 3.79 M/mm3 (3.60-5.2); RDW 12.8 % (11.6-15.6); WHITE BLOOD COUNT 7.2 K/mm3 (4.0-10.0)
[2018-03-14] MEDS ORDERED: ONDANSETRON 4 MG/2 ML VIAL ONE (13:33)
[2018-03-14 13:51] LABS: ALBUMIN 2.5 g/dl (3.4-5.0); ALK PHOS 130 U/L (45-117); ANION GAP 9 MMOL/L (8-16); BILIRUBIN,TOTAL 0.5 mg/dL (0.2-1); BLOOD UREA NITROGEN 11 mg/dL (7-18); CALCIUM 8.4 mg/dL (8.5-10.1); CHLORIDE 89 mmol/L (98-107); CO2 27 mmol/L (21-32); CREATININE 0.9 mg/dL (0.55-1.3); GLUCOSE,RANDOM 105 mg/dL (74-106); MAGNESIUM 1.9 mg/dL (1.8-2.4); POTASSIUM 4.3 mmol/L (3.5-5.1); SGOT/AST 27 U/L (15-37); SGPT/ALT 32 U/L (13-61); SODIUM 125 mmol/L (136-145); TOT PROT 6.5 g/dl (6.4-8.2)
[2018-03-14] MEDS ORDERED: METOCLOPRAMIDE HCL INJECTION 10 MG/2 ML VIAL IVPUSH ONE (14:57)
--- NOTE | 2018-03-14 15:04 | EKG ---
Test Reason : Blood Pressure : / mmHG Vent. Rate : 094 BPM Atrial Rate : 094 BPM P-R Int : 126 ms QRS Dur : 082 ms QT Int : 312 ms P-R-T Axes : -11 -15 070 degrees QTc Int : 390 ms NORMAL SINUS RHYTHM NONSPECIFIC T WAVE ABNORMALITY ABNORMAL ECG WHEN COMPARED WITH ECG OF 10-MAR-2018 08:48, NO SIGNIFICANT CHANGE WAS FOUND Confirmed by HUMPHREY JOHNSON MD ([id number]) on 03/14/2018 3:04:12 PM Referred By: Confirmed By:HUMPHREY JOHNSON MD
[2018-03-14] MEDS ORDERED: METOCLOPRAMIDE HCL INJECTION 10 MG/2 ML VIAL IM ONE (18:17)
[2018-03-14 19:02] LABS: URINE APPEARANCE CLEAR; URINE BILIRUBIN NEGATIVE (<2.0 mg/dL); URINE COLOR COLORLESS; URINE GLUCOSE (UA) NEGATIVE (NEGATIVE); URINE KETONE TRACE (NEGATIVE); URINE LEUK ESTERASE NEGATIVE (NEGATIVE); URINE NITRITE NEGATIVE (NEGATIVE); URINE PROTEIN NEGATIVE (NEGATIVE); URINE UROBILINOGEN NEGATIVE mg/dL (0.2-1.0)
[2018-03-14 19:37] LABS: ALBUMIN 2.4 g/dl (3.4-5.0); ALK PHOS 127 U/L (45-117); ANION GAP 13 MMOL/L (8-16); BILIRUBIN,TOTAL 0.5 mg/dL (0.2-1); BLOOD UREA NITROGEN 8 mg/dL (7-18); CALCIUM 7.7 mg/dL (8.5-10.1); CHLORIDE 92 mmol/L (98-107); CO2 22 mmol/L (21-32); CREATININE 0.7 mg/dL (0.55-1.3); GLUCOSE,RANDOM 93 mg/dL (74-106); POTASSIUM 4.2 mmol/L (3.5-5.1); SGOT/AST 27 U/L (15-37); SGPT/ALT 30 U/L (13-61); SODIUM 127 mmol/L (136-145); TOT PROT 6.3 g/dl (6.4-8.2)
[2018-03-14] MEDS ORDERED: METOCLOPRAMIDE HCL INJECTION 10 MG/2 ML VIAL ONE (20:37)
[2018-03-14] MEDS ORDERED: SODIUM CHLORIDE 1,000 ML IV SCH (22:15)
[2018-03-14] MEDS ORDERED: RANITIDINE HCL 150 MG TABLET (FP) PO ONE (22:46)
[2018-03-14] MEDS ORDERED: ONDANSETRON 4 MG/2 ML VIAL IVPB PRN (22:46)
--- NOTE | 2018-03-14 23:21 | HP ---
CHIEF COMPLAINT: nausea PCP: HISTORY OF PRESENT ILLNESS: Patient is a 87 y/o female with a history of HTN, HLD, diverticulitis, and L4/ L5 herniated disc who presents with nausea and vomiting. Patient was admitted to the hospital 5 days ago for chest pain. She had been coughing a lot secondary to URI. She presented to the hospital due to chest pain. A cardiac workup was done and found to be negative and she was discharged. She had been nauseous in the hospital and has continued to have nausea after discharged. She reports having four episodes of NBNB vomiting. She has been having trouble keeping fluids and food down and her po intake has been decreased. She denies having these symptoms in the past. She reports she has been taking over the counter medication (robitussin) for her cough and ranitidine for GERD. At patients last visit she had a chest CT done that showed LLL opacity and pericardial effusion. Patient denies diarrhea, abdominal pain, or chest pain. She reports some difficulty breathing, continued cough, and nausea. ER course was notable for: (1) 2L NS (2) metoclopramide (3) Recent Travel: PAST MEDICAL HISTORY: HTN, HLD, diverticulitis, L4/L5 herniated disc, constipation PAST SURGICAL HISTORY: bowel prolapse, L femoral fracture, bladder sling Social History: Smoking: from age [age] Alcohol: denies Drugs: denies Family History: Allergies ciprofloxacin [From Cipro] Adverse Reaction (Verified 03/14/18 12:32) "NAUSEA" ciprofloxacin HCl [From Cipro] Adverse Reaction (Verified 03/14/18 12:32) "NAUSEA" NARCOTICS Adverse Reaction (Uncoded 03/14/18 12:32) Nausea PAIN MEDS Adverse Reaction (Uncoded 03/14/18 12:32) Nausea HOME MEDICATIONS: Home Medications Medication Instructions Recorded Amlodipine Besylate 7.5 mg PO DAILY 03/09/18 Metoprolol Succinate 25 mg PO DAILY 03/09/18 Potassium Chloride 10 meq PO DAILY 03/09/18 Ranitidine [Zantac -] 150 mg PO DAILY 03/09/18 REVIEW OF SYSTEMS CONSTITUTIONAL: Absent: fever, chills, diaphoresis, generalized weakness, malaise, loss of appetite, weight change HEENT: Absent: rhinorrhea, nasal congestion, throat pain, throat swelling, difficulty swallowing, mouth swelling, ear pain, eye pain, visual changes CARDIOVASCULAR: Absent: chest pain, syncope, palpitations, irregular heart rate, lightheadedness , peripheral edema RESPIRATORY: cough Absent: shortness of breath, dyspnea with exertion, orthopnea, wheezing, stridor , hemoptysis GASTROINTESTINAL: nausea, vomiting Absent: abdominal pain, abdominal distension, diarrhea, constipation, melena, hematochezia GENITOURINARY: Absent: dysuria, frequency, urgency, hesitancy, hematuria, flank pain, genital pain MUSCULOSKELETAL: Absent: myalgia, arthralgia, joint swelling, back pain, neck pain SKIN: Absent: rash, itching, pallor HEMATOLOGIC/IMMUNOLOGIC: Absent: easy bleeding, easy bruising, lymphadenopathy, frequent infections ENDOCRINE: Absent: unexplained weight gain, unexplained weight loss, heat intolerance, cold intolerance NEUROLOGIC: headache, Absent: focal weakness or paresthesias, dizziness, unsteady gait, seizure, mental status changes, bladder or bowel incontinence PSYCHIATRIC: Absent: anxiety, depression, suicidal or homicidal ideation, hallucinations. PHYSICAL EXAMINATION Vital Signs - 24 hr 03/14/18 11:40 Temperature 98.2 F Pulse Rate 55 L Respiratory 16 Rate Blood Pressure 129/78 O2 Sat by Pulse 96 Oximetry (%) GENERAL: Awake, alert, and fully oriented, in no acute distress. HEAD: Normal with no signs of trauma. EYES: Pupils equal, round and reactive to light, extraocular movements intact, sclera anicteric, conjunctiva clear. No lid lag. EARS, NOSE, THROAT: Ears normal, nares patent, oropharynx clear without exudates. Moist mucous membranes. NECK: Normal range of motion, supple without lymphadenopathy, JVD, or masses. LUNGS: Breath sounds equal, clear to auscultation bilaterally. No wheezes, and no crackles. No accessory muscle use. HEART: Regular rate and rhythm, normal S1 and S2 without murmur, rub or gallop. ABDOMEN: Soft, nontender, not distended, normoactive bowel sounds, no guarding, no rebound, no masses. No hepatomegaly or splenomegaly. MUSCULOSKELETAL: Normal range of motion at all joints. No bony deformities or tenderness. No CVA tenderness. UPPER EXTREMITIES: 2+ pulses, warm, well-perfused. No cyanosis. No clubbing. No peripheral edema. LOWER EXTREMITIES: 2+ pulses, warm, well-perfused. No calf tenderness. No peripheral edema. NEUROLOGICAL: Cranial nerves II-XII intact. Normal speech. Normal gait. PSYCHIATRIC: Cooperative. Good eye contact. Appropriate mood and affect. SKIN: Warm, dry, normal turgor, no rashes or lesions noted, normal capillary refill. Laboratory Results - last 24 hr CBC, BMP 03/14/18 12:55 03/14/18 18:50 ASSESSMENT/PLAN: Patient is a 87 y/o female with a history of HTN, HLD, diverticulitis, and L4/ L5 herniated disc who presents with nausea, vomiting, and hyponatremia. #Hyponatremia likely 2/2 to dehydration - received 2 L NS in ED - from 125> 127>125 - f/u legionella antigen - f/u urine lytes, urine osmolality, - serum osmolality 260 - currently holding fluids until further workup of new pleural effusions #Nausea, 2/2 to possible acute cholecystis - Abd US: no evidence of cholelithiasis, mild diffuse gallbladder wall thickening - Abd CT: RUQ soft tissue edema around region of distal stomach and partial duodenal sweep - f/u HIDA, f/u MRI - f/u GI, Dr. Ngo - elevated alk phosp 127 - lipase 200, low suspicion for pancreatitis - Levaquin 750 mg q 24, Flagyl 500 TID - pt states nausea with levaquin but received it last hospital admission without any allergy - Zofran 8mg q8h, QTC 390 #Pericardial effusion - f/u echo - worsening since last seen on imaging - f/u YUE, rheumatoid factor, consider possible viral causes - f/u Dr. Joy, cardio consult #LLL opacity, atelactisis vs PNA - low suspicion for PNA - Levaquin/Flagyl will cover potential respiratory infection - f/u sputum cx - f/ influenza swab - f/u pna urine antigens - encourage incentive spirometry use #B/L pleural effusions - unknown origin - monitor fluid status, currently holding fluids #GERD - continue home ranitidine #Insomnia - ambien 5mg hs Visit type - Emergency Visit Emergency Visit: Yes ED Registration Date: 03/14/18 Care time: The patient presented to the Emergency Department on the above date and was hospitalized for further evaluation of their emergent condition. - New Patient This patient is new to me today: Yes Date on this admission: 03/15/18 - Critical Care Critical Care patient: No
--- NOTE | 2018-03-14 23:27 | PN ---
Teaching Attending Note Name of Resident: Susan Moy ATTENDING PHYSICIAN STATEMENT I saw and evaluated the patient. I reviewed the resident's note and discussed the case with the resident. I agree with the resident's findings and plan as documented. SUBJECTIVE: Patient is an 87 y/o CF whom is known to me from prior admission; she comes to hospital for nausea with several episodes of vomitting. Please refer to resident note for further historical details. In summation, she has been nauseous since she left the hospital; has had several episodes of bilious vomitting and this has all resulted in poor PO intake. Has had waxing and waning abdominal pain and a cough, as well. Was recently admitted to [facility]; was diagnosed with noncardiac chest pain and a small pericardial effusion likely from viral etiology; seen by Dr. Acharya and encouraged to followup with him as an OP for the pericardial effusion, etc. She had a negative stress test on that admission. She had a URI prior to her presentation at that juncture. Today she is found to have RUQ soft tissue edema around the stomach, peripancreatic edema, gallbladder wall thickening, hyponatremia, increased size of her pericardial effusion, hyponatremia with elevated alkaline phosphatase. She got 2L NS down in the ER which did not correct her sodium. She will be brought to the floor for further treatment and monitoring. 10 sys ROS done and negative aside from HPI PMH and PSH as documented Social history reviewed; nonsmoker no EtOH abuse FH asked and noncontributory OBJECTIVE: VSS, all labs and imaging reviewed NAD, resting in bed Mildly tender R-side with minor distention, +BS, no organomeg RRR s1/2 no mgr; no muffling Lungs CTAB with sym expansion Trachea midline, no JVD ASSESSMENT AND PLAN: Patient is an 87 y/o CF presenting today with hyponatremia, pleural effusions, increasing size of pericardial effusion, abdominal discomfort with elevated alk phos, peripancreatic edema and a GB with wall thickening and pericholecystic fluid. 1) Acute Hyponatremia -She appears essentially euvolemic; she was given 2L NS in the ER with little improvement seen in sodium. Calculated Serum Osm is 262 from admission BMP; urine lytes, urine osm pending. Need more information before treating. She is at risk for volume depletion with the vomitting history, but on the other hand has new pleural effusions, etc. which could endorse another more occult process. Will await further workup before more orders are placed regarding fluids. 2) Abdominal pain with elevated alk phos, GB wall thickening and pericholecystic fluid and peripancreatic edema -Patient noted to have aforementioned lab and imaging findings. Raises concern for a cholecystitis; should be noted no stones seen on the US. HIDA recommended and given the pancreatic findings and elevated alk phos will also get MRCP. Consulting GI and surgery. Check lipase, trend CMP. -She tolerated levaquin last time she was here; thus placing on levaquin and flagyl. 3) Moderate Pericardial effusion -Small pericardial effusion seen on CT and echo last admission; appears to have grown to moderate size per radiology on the new CT. Cardiology saw and said followup outpatient during last visit -Repeat echo, consult cardiology. No s/s tamponade. monitor on telemetry. -Cause is unclear; she did have an assumed URI last time she was here. Could have been a viral cause? No uremia, no s/s TB. Check coxsackie virus assay. Monitor clinically. -Checking YUE, RF, ESR, CRP 4) Posterior L-lower lobe atelectesis vs. infiltrate -Seen on previous CT as well; was started on levaquin on admission last time; unsue if she completed course. She would be empirically covered by the abx for #2 but we will also followup a sputum culture and recheck a legionella Ag and pneumococcal Ag. Incentive spirometry should be ordered as well. 5) New Bilateral Pleural Effusions -Unclear cause; normal LVEF on 03/10 echo, never had these in past. Consider viral etiology? Consider diuresis if endorsed by urine osm, etc. with #1. If persists and no explanation obtained can even consider thora in future. Monitor. Respiratory status is baseline now which is reassuring 6) HTN -Continue home meds; monitor 7) HLD -Nonacute, monitor 8) Diverticulosis -No -itis seen on CT, monitor 9) R-renal cyst -Incidental finding on US; followup OP. 10) OA -PRN APAP 11) GERD -Continue home meds Full Code Consults: GI, General Sgy, Cardiology
[2018-03-14] MEDS: HEPARIN NA (PORCINE) 5,000 UNITS/ML 1ML VIAL SQ SCH (23:32)
[2018-03-14] MEDS ORDERED: RANITIDINE HCL 150 MG TABLET (FP) ONE (23:43)
[2018-03-14] MEDS ORDERED: HEPARIN NA (PORCINE) 5,000 UNITS/ML 1ML VIAL ONE (23:44)
[2018-03-15 00:52] LABS: POTASSIUM 3.7 mmol/L (3.5-5.1)
[2018-03-15] MEDS ORDERED: ONDANSETRON 4 MG/2 ML VIAL IVPUSH ONE (01:01)
[2018-03-15] MEDS ORDERED: ONDANSETRON 4 MG/2 ML VIAL ONE (02:02)
[2018-03-15 05:58] LABS: BASO % 0.3 % (0-2.0); EOS % 0.3 % (0-4.5); HEMATOCRIT 31.8 % (32.4-45.2); HEMOGLOBIN 10.8 GM/dL (10.7-15.3); LYMPH % 8.9 % (8-40); MCH 29.9 pg (25.7-33.7); MCHC 34.1 g/dl (32.0-36.0); MEAN CELL VOLUME 87.9 fl (80-96); MEAN PLT VOLUME 7.5 fl (7.5-11.1); MONO % 10.5 % (3.8-10.2); PLATELET COUNT 292 K/MM3 (134-434); RBC 3.62 M/mm3 (3.60-5.2); WHITE BLOOD COUNT 6.7 K/mm3 (4.0-10.0)
[2018-03-15] MEDS ORDERED: levoFLOXacin 750 MG TABLET PO SCH (06:00)
[2018-03-15] MEDS ORDERED: metroNIDAZOLE 250 MG TABLET PO SCH (06:00)
[2018-03-15] MEDS ORDERED: HEPARIN NA (PORCINE) 5,000 UNITS/ML 1ML VIAL ONE (06:09)
[2018-03-15 06:11] LABS: ALBUMIN 2.3 g/dl (3.4-5.0); ALK PHOS 115 U/L (45-117); ANION GAP 8 MMOL/L (8-16); BILIRUBIN,TOTAL 0.4 mg/dL (0.2-1); BLOOD UREA NITROGEN 8 mg/dL (7-18); CALCIUM 7.9 mg/dL (8.5-10.1); CHLORIDE 95 mmol/L (98-107); CO2 26 mmol/L (21-32); CREATININE 0.8 mg/dL (0.55-1.3); GLUCOSE,RANDOM 98 mg/dL (74-106); POTASSIUM 3.9 mmol/L (3.5-5.1); SGOT/AST 20 U/L (15-37); SGPT/ALT 26 U/L (13-61); SODIUM 129 mmol/L (136-145)
[2018-03-15] MEDS: HEPARIN NA (PORCINE) 5,000 UNITS/ML 1ML VIAL SQ SCH (06:40)
--- NOTE | 2018-03-15 07:36 | PN ---
Progress Note, Physician Chief Complaint: Nausea improved no vomiting, denies any abd pain History of Present Illness: 87 y/o female with a history of HTN, HLD, diverticulitis, and L4/L5 herniated disc who presents with nausea and vomiting. Patient was admitted to the hospital 5 days ago for chest pain. She had been coughing a lot secondary to URI. She presented to the hospital due to chest pain. A cardiac workup was done and found to be negative and she was discharged, yesterday admitted with ongoing nausea, poor Po intake , coughing and epigastric discomfort in the Ed CBC normal, CMP shows Hyponatremia, normal Lipase and LFTs , abd ultrasound unremarkable except renal cyst and gall bladder Polyp Ct abd show b/L pleural effusion and percardial effusion, today HIDA scan -ve patient abd pain improved. - Current Medication List Current Medications: Active Medications Home Medication List Medication Instructions Recorded Confirmed Type Amlodipine Besylate 7.5 mg PO DAILY 03/09/18 03/14/18 History Metoprolol Succinate 25 mg PO DAILY 03/09/18 03/14/18 History Potassium Chloride 10 meq PO DAILY 03/09/18 03/14/18 History Ranitidine [Zantac -] 150 mg PO DAILY 03/09/18 03/14/18 History Ascorbic Acid [C-500] 500 mg PO DAILY 03/15/18 03/15/18 History Beta-Carotene(A)-Vits C and E 1 tab PO DAILY 03/15/18 03/15/18 History [E-400 C-500 & Beta Carotene] Biotin 5,000 mcg PO DAILY 03/15/18 03/15/18 History Calcium Carb, Citrate/Vit D3 1 tab PO DAILY 03/15/18 03/15/18 History [Calcium + D3 ER Tablet] Co Q-10 100 mg Softgel 100 mg PO DAILY 03/15/18 03/15/18 History Ferrous Sulfate [Feosol] 350 mg PO DAILY 03/15/18 03/15/18 History Flaxseed Oil [Flaxseed] 1,000 mg PO DAILY 03/15/18 03/15/18 History Luz Maria Root 550 mg PO DAILY 03/15/18 03/15/18 History Glucosamine/MSM/Chondroitin A 1 tab PO DAILY 03/15/18 03/15/18 History [Glucosamine Chondroit MSM Tab] Magnesium 250 mg PO DAILY 03/15/18 03/15/18 History Zinc 15 mg Lozenges 15 mg PO DAILY 03/15/18 03/15/18 History Active Medications Active Medications Amlodipine Besylate (Norvasc -) 7.5 mg PO DAILY COUNTS INCLUDE 234 BEDS AT THE [facility] Last Admin: 03/15/18 10:29 Dose: 7.5 mg Sodium Chloride (Normal Saline -) 1,000 mls @ 75 mls/hr IV ASDIR COUNTS INCLUDE 234 BEDS AT THE [facility] Metoprolol Succinate (Toprol Xl -) 25 mg PO DAILY COUNTS INCLUDE 234 BEDS AT THE [facility] Last Admin: 03/15/18 10:29 Dose: 25 mg Ondansetron HCl (Zofran Injection) 8 mg IVPB Q8H PRN PRN Reason: NAUSEA Pantoprazole Sodium (Protonix Iv) 40 mg IVPUSH DAILY COUNTS INCLUDE 234 BEDS AT THE [facility] Last Admin: 03/15/18 13:28 Dose: 40 mg Potassium Chloride (K-Dur -) 10 meq PO DAILY COUNTS INCLUDE 234 BEDS AT THE [facility] Last Admin: 03/15/18 10:29 Dose: 10 meq - Objective Vital Signs: Vital Signs Temperature 97.8 F 03/15/18 06:49 Pulse Rate 88 03/15/18 06:49 Respiratory Rate 18 03/15/18 06:49 Blood Pressure 120/78 03/15/18 06:49 O2 Sat by Pulse Oximetry (%) 98 03/15/18 06:49 Elderly F sitting comfortably not in distress HEENT: Mm moist, no anemia, PERRLA, EOMI NECK: No JVD No Bruit CHEST: B/L Minimal basal crepts decrese AE on Left side CVS; s1S2 R no m/g/r ABD: Soft non tender Bs + EXT: No edema feet, no calf tenderness Pulses + [employer]OTIST: AOX3 non focal Labs: CBC, BMP 03/15/18 05:00 03/15/18 05:00 Problem List - Problems (1) Hyponatremia Assessment/Plan: Improving will F/U BMP in PM most likely decree Po intake will F/U U Lytes and serum and urine osmolality Sr Uric acid level. Can be due to acute Pulmonary process. Cont NS 75 CC F/u serial BMP. BNP and Pro Calcitonin Code(s): E87.1 - HYPO-OSMOLALITY AND HYPONATREMIA (2) Nausea & vomiting Assessment/Plan: Improved abdomen benign exam normal LFTs HIDA -ve, nor,mal ultrasound will Hold Abx cont antiemetics and PPI advance as tolerates. Code(s): R11.2 - NAUSEA WITH VOMITING, UNSPECIFIED Qualifiers: Vomiting type: unspecified Vomiting Intractability: non-intractable Qualified Code(s): R11.2 - Nausea with vomiting, unspecified (3) Pericardial effusion Assessment/Plan: Mild to moderate recent Cardiac w/u -ve most likely due to pericarditis secondary to viral infection will f/u Cardiology recommendations. Code(s): I31.3 - PERICARDIAL EFFUSION (NONINFLAMMATORY) (4) Pleural effusion Assessment/Plan: CXr shows Pleural effusion Left > Rt post viral afebrile, no SOB, generalized ansarca some marcelle around pancreas, left UQ duodenum of unlnown etiology surgery , GI, infectious disease on the case patient has drop in albumin from 3.4 to 2.6 over 5 days, normal LFTS , urine no protein will observe closely and F/U GI and ID input. Code(s): J90 - PLEURAL EFFUSION, NOT ELSEWHERE CLASSIFIED (5) Hypertension Assessment/Plan: Well controlled cont amlodipine Code(s): I10 - ESSENTIAL (PRIMARY) HYPERTENSION Qualifiers: Hypertension type: essential hypertension Qualified Code(s): I10 - Essential (primary) hypertension (6) GERD (gastroesophageal reflux disease) Assessment/Plan: on PPI Code(s): K21.9 - GASTRO-ESOPHAGEAL REFLUX DISEASE WITHOUT ESOPHAGITIS Qualifiers: Esophagitis presence: without esophagitis Qualified Code(s): K21.9 - Gastro -esophageal reflux disease without esophagitis
[2018-03-15 07:59] VITALS: BMI 25.7
[2018-03-15] MEDS ORDERED: POTASSIUM CHLORIDE TABS 10 MEQ TABLET.ER (FP) PO SCH (10:00)
[2018-03-15] MEDS ORDERED: amLODIPine BESYLATE 2.5 MG TABLET (FP) PO SCH (10:00)
[2018-03-15] MEDS ORDERED: metoPROLOL SUCCINATE 25 MG TAB.SR.24H (FP) PO SCH (10:00)
[2018-03-15] MEDS ORDERED: RANITIDINE HCL 150 MG TABLET (FP) PO SCH (10:00)
--- NOTE | 2018-03-15 12:40 | CONSULT ---
Consult Consult Specialty:: General Surgery Referred by:: Dr. Winchester Reason for Consultation:: ?cholecystitis - History of Present Illness Chief Complaint: Nausea, vomiting, epigastric pain, po intolerance History of Present Illness: 87yo F with HTN, GERD/PUD, diverticulosis, h/o diverticulitis, rectal prolapse s /p resection, s/p bladder sling and L hip ORIF, was in hospital last week Wed- Wed with atypical chest pain associated with URI and lingering cough, ruled out for cardiac source. Echo showed EF 60-65% and she had small pericardial effusion and pleural effusions. For the last 2 weeks, she has had URI symptoms including cough, postnasal drip and pain from coughing. She has had nausea and sense of fullness since last week at least, with vomiting when she tries po intake, and sometimes just the feeling that she needs to without actually vomiting. She has not been able to keep down food or her daily meds since mid- last week, when she had some crackers and tea on while on observation in ER. She has not taken her usual meds since last Wednesday. She normally takes Zantac daily for GERD and BP meds. She came back to ER yesterday because she still could not eat. Last EGD at least several years ago, and last colonoscopy about 6 yrs ago (Dr. Alvarenga). She states she had 3 ulcers in the past, and had "one left" last time they looked. She reports diverticulitis in past with mid to low abdominal pain. She has had normal BMs, last 2 days ago. At times, with her coughing, she had some epigastric pain, but is not currently in pain. In the ER, she has normal wbc and LFTs, lipase. Mildly anemic with Hb 11 and 10. Hyponatremic with Na 125-129, Cl 89-95, K down a bit to high 3's. Osmolality was low. Small ketones in urine. US showed no gallstones, few small polyps, mild wall thickening, no pericholecystic fluid, no ductal dilation. CT showed ascites in upper abdomen and RUQ around pancreas, gb, distal stomach and proximal duodenum with inflammation centered around them, mild changes of hepatic flexure, bilateral pleural effusions, increased pericardial effusion, diverticulosis, no obstruction or free air, large right renal cyst. HIDA done this morning visualized gallbladder at 15 minutes. MRI w/contrast was ordered as well. Surgery was asked to assess. She is seen and examined in room, reports feeling better since medication. No current nausea or sig pain, but "I haven't eaten." Reports medium yellow urine. Son Zoran arrived during exam. She was able to ambulate easily to chair to sit. - History Source History Provided By: Patient Limitations to Obtaining History: No Limitations - Past Medical History Cardio/Vascular: Yes: HTN, Hyperlipdemia Gastrointestinal: Yes: Diverticulitis, Diverticulosis, GERD, Peptic Ulcer Disease Reproductive: Yes: Postmenopausal ...: No Musculoskeletal: Yes: Chronic low back pain (herniated discs) - Past Surgical History Additional Surgical History: rectal prolapse resection, bladder sling, left hip ORIF (07/31) - Alcohol/Substance Use Hx Alcohol Use: No History of Substance Use: reports: None - Smoking History Smoking history: Former smoker Have you smoked in the past 12 months: No If you are a former smoker, when did you quit?: 50YRS AGO - Social History ADL: Independent Home Medications - Allergies Allergies/Adverse Reactions: Allergies Allergy/AdvReac Type Severity Reaction Status Date / Time levofloxacin [From Levaquin] Allergy Verified 03/14/18 12:32 ciprofloxacin [From Cipro] AdvReac "NAUSEA" Verified 03/14/18 12:32 ciprofloxacin HCl AdvReac "NAUSEA" Verified 03/14/18 12:32 [From Cipro] NARCOTICS AdvReac Nausea Uncoded 03/14/18 12:32 PAIN MEDS AdvReac Nausea Uncoded 03/14/18 12:32 - Home Medications Home Medications: Ambulatory Orders Amlodipine Besylate 7.5 mg PO DAILY 03/09/18 Metoprolol Succinate 25 mg PO DAILY 03/09/18 Potassium Chloride 10 meq PO DAILY 03/09/18 Ranitidine [Zantac -] 150 mg PO DAILY 03/09/18 Family Disease History - Family Disease History Family Disease History: CA: Father (liver), Sister (unknown) Other Family History: 4 bros, 3 sisters, most of old age; 1 sister with unknown malignancy Review of Systems - Review of Systems Constitutional: reports: Chills (occasionally), Lethargy, Weakness. denies: Fever, Loss of Appetite, Unintentional Wgt. Loss Eyes: reports: Other (reading glasses). denies: Recent Change in Vision HENT: reports: Other (postnasal drip). denies: Difficult Swallowing, Nasal Congestion, Throat Pain Neck: denies: Swollen Glands, Tenderness Cardiovascular: denies: Chest Pain (last week had some, but was here and cardiac source ruled out), Palpitations Respiratory: reports: Cough (2 wks with URI, still lingering). denies: SOB Gastrointestinal: reports: Abdominal Pain (epigastric, with hpi), Nausea (with hpi), Vomiting. denies: Constipation, Diarrhea, Rectal Bleeding, Vomiting Blood Genitourinary: denies: Burning, Dysuria Musculoskeletal: reports: Back Pain. denies: Joint Pain, Muscle Pain Integumentary: denies: Change in Color, Rash Neurological: denies: Dizziness, Headache, Unsteady Gait Endocrine: denies: Unexplained Weight Gain, Unexplained Weight Loss Psychiatric: denies: Anxiety, Depression Physical Exam Vital Signs: Vital Signs Temperature 98.6 F 03/15/18 07:49 Pulse Rate 92 H 03/15/18 07:49 Respiratory Rate 20 03/15/18 07:49 Blood Pressure 130/72 03/15/18 07:49 O2 Sat by Pulse Oximetry (%) 93 L 03/15/18 08:03 Constitutional: Yes: Well Nourished, No Distress, Calm Eyes: Yes: Conjunctiva Clear, EOM Intact HENT: Yes: Atraumatic, Normocephalic Neck: Yes: Supple, Trachea Midline Cardiovascular: Yes: Tachycardia (mild). No: Pulse Irregular, Murmur Respiratory: Yes: Regular, Cough (with wheezing at end, minimally productive), Diminished (at bases bilaterally), Wheezes (end-expiratory, prolonged expiration ) Gastrointestinal: Yes: Normal Bowel Sounds, Soft, Tenderness, Epigastrium ( minimal epigastric and a little to the right). No: Distention ...Rectal Exam: Yes: Deferred Renal/: No: CVA Tenderness - Left, CVA Tenderness - Right Musculoskeletal: No: Joint Stiffness, Joint Swelling Extremities: No: Cool, Cyanosis Edema: No Peripheral Pulses WNL: Yes Integumentary: No: Jaundice, Rash Neurological: Yes: Alert, Oriented. No: Unsteady Gait Psychiatric: Yes: Alert, Oriented Labs: CBC, BMP 03/15/18 05:00 03/15/18 05:00 CMP Sodium 129 mmol/L (136-145) L 03/15/18 05:00 Potassium 3.9 mmol/L (3.5-5.1) 03/15/18 05:00 Chloride 95 mmol/L (98-107) L 03/15/18 05:00 Carbon Dioxide 26 mmol/L (21-32) 03/15/18 05:00 Anion Gap 8 MMOL/L (8-16) 03/15/18 05:00 BUN 8 mg/dL (7-18) 03/15/18 05:00 Creatinine 0.8 mg/dL (0.55-1.3) 03/15/18 05:00 Creat Clearance w eGFR > 60 (>60) 03/15/18 05:00 Random Glucose 98 mg/dL (74-106) 03/15/18 05:00 Serum Osmolality 262 mosm/kg (278-305) L 03/14/18 23:50 Calcium 7.9 mg/dL (8.5-10.1) L 03/15/18 05:00 Magnesium 1.9 mg/dL (1.8-2.4) 03/14/18 12:55 Total Bilirubin 0.4 mg/dL (0.2-1) 03/15/18 05:00 AST 20 U/L (15-37) 03/15/18 05:00 ALT 26 U/L (13-61) 03/15/18 05:00 Alkaline Phosphatase 115 U/L (45-117) 03/15/18 05:00 Troponin I < 0.02 ng/ml (0.00-0.05) 03/14/18 12:55 C-Reactive Protein 11.4 MG/DL (0.00-0.3) H 03/14/18 23:50 Total Protein 6.0 g/dl (6.4-8.2) L 03/15/18 05:00 Albumin 2.3 g/dl (3.4-5.0) L 03/15/18 05:00 Lipase 202 U/L (73-393) 03/14/18 23:50 TSH 3.34 uIU/ml (0.358-3.74) 03/15/18 06:34 Urine Test Results Urine Color Colorless 03/14/18 18:50 Urine Appearance Clear 03/14/18 18:50 Urine pH 5.0 (5.0-8.0) 03/14/18 18:50 Ur Specific Cameron 1.014 (1.010-1.035) 03/14/18 18:50 Urine Protein Negative (NEGATIVE) 03/14/18 18:50 Urine Glucose (UA) Negative (NEGATIVE) 03/14/18 18:50 Urine Ketones Trace (NEGATIVE) H 03/14/18 18:50 Urine Blood Negative (NEGATIVE) 03/14/18 18:50 Urine Nitrite Negative (NEGATIVE) 03/14/18 18:50 Urine Bilirubin Negative (<2.0 mg/dL) 03/14/18 18:50 Ur Leukocyte Esterase Negative (NEGATIVE) 03/14/18 18:50 Imaging - Results Cat Scan: Report Reviewed, Image Reviewed (images personally reviewed - bilateral pleural effusions, peripancreatic and pericholecystic fluid present with inflammation of distal stomach and proximal duodenum and local ascites, also extensive diverticulosis, mild inflammation hepatic flexure, no bowel obstruction, large right renal cyst, no free air) Ultrasound: Report Reviewed (no stones, few small gallbladder polyps, no pericholecystic fluid but mildly thickened wall, no ductal dilation) Other: Image Reviewed (HIDA - gallbladder visualized at 15 minutes) Problem List - Problems (1) Other ascites Code(s): R18.8 - OTHER ASCITES (2) Chronic peptic ulcer without hemorrhage or perforation Code(s): K27.7 - CHRONIC PEPTIC ULCER, SITE UNSP, W/O HEMORRHAGE OR PERF (3) Nausea & vomiting Code(s): R11.2 - NAUSEA WITH VOMITING, UNSPECIFIED Qualifiers: Vomiting type: unspecified Vomiting Intractability: non-intractable Qualified Code(s): R11.2 - Nausea with vomiting, unspecified (4) Hyponatremia Code(s): E87.1 - HYPO-OSMOLALITY AND HYPONATREMIA (5) Bilateral pleural effusion Code(s): J90 - PLEURAL EFFUSION, NOT ELSEWHERE CLASSIFIED (6) GERD (gastroesophageal reflux disease) Code(s): K21.9 - GASTRO-ESOPHAGEAL REFLUX DISEASE WITHOUT ESOPHAGITIS Qualifiers: Esophagitis presence: without esophagitis Qualified Code(s): K21.9 - Gastro -esophageal reflux disease without esophagitis (7) Pericardial effusion without cardiac tamponade Code(s): I31.3 - PERICARDIAL EFFUSION (NONINFLAMMATORY) (8) Hypertension Code(s): I10 - ESSENTIAL (PRIMARY) HYPERTENSION Qualifiers: Hypertension type: essential hypertension Qualified Code(s): I10 - Essential (primary) hypertension Assessment/Plan upper abdominal ascites, with inflammation centered around distal stomach and proximal duodenum no evidence of primary biliary pathology or pancreatitis would hold off on MRI at this time suspect PUD as possible source of inflammatory changes also pulmonary and pericardial effusions could be related to viral URI lingering cough with expiratory wheeze agree with GI consultation - pt known to Dr. Alvarenga spoke with him, he will see her later today, would benefit from EGD but concerns about pulmonary status discussed with Dr. [place], pt's PMD will have pulmonary and cardiology see pt as well start PPI/GI prophylaxis NPO except meds with sips for now pt also dehydrated and hyponatremic, has been functionally NPO for about a week D5 NS with K+ at gentle rate trend labs replete lytes as indicated continue home BP meds agree with holding antibiotics, ID also consulted get coags and update T&S Zofran prn DVT prophylaxis answered pt and son's questions no acute surgical issues now, but will follow with you Thank you for the opportunity to participate in the care of this patient.
[2018-03-15] MEDS ORDERED: PANTOPRAZOLE SODIUM 40 MG VIAL IVPUSH SCH (12:45)
[2018-03-15] MEDS ORDERED: SODIUM CHLORIDE 0.9%/KCL 20 MEQ/1,000 ML INFUS.BAG IV SCH (12:45)
--- NOTE | 2018-03-15 13:09 | ECHO ---
Name: CLARA HANSEN Exam:Adult Echocardiogram Study Date: 03/15/2018 11:33 AM Age: 87 yrs Reason For Study: Pericardial Effusion Height: 61 in Weight: 136 lb BSA: 1.6 m2 Procedure A limited two-dimensional transthoracic echocardiogram was performed (2D). The patient was in normal sinus rhythm during the exam. Left Ventricle Left ventricular systolic function is normal. Right Ventricle The right ventricular systolic function is normal. Mitral Valve There is mild mitral annular calcification. Pericardium/Pleura Small pericardial effusion (<1cm). Compared to echocardiogram performed 03/10/18 there is no signific ant change in the size of the pericardial effusion. On todays study there is significant mitral and tricuspid inflow respiratory variation. This could be consistent with early echocardiographic signs of tamponade.There is no significant diastolic collapse of the right atrium or right ventricle. Large left pleural effusion. Interpretation Summary Left ventricular systolic function is normal. The right ventricular systolic function is normal. There is mild mitral annular calcification. Large left pleural effusion. Small pericardial effusion (<1cm) Compared to echocardiogram performed 03/10/18 there is no significant change in the size of the peric ardial effusion. On todays study there is significant mitral and tricuspid inflow respiratory variation. This could be consistent with early echocardiographic signs of tamponade.There is no significant diastolic collapse of the right atrium or right ventricle. MD Hans Carmona 03/15/2018 01:08 PM
[2018-03-15] MEDS ORDERED: D5-NS + 20 MEQ KCL - 20 MEQ/1,000 ML INFUS.BAG IV SCH (13:15)
[2018-03-15] MEDS ORDERED: SODIUM CHLORIDE 1,000 ML IV SCH (16:15)
--- NOTE | 2018-03-15 17:02 | CON.CARD ---
Consult Consult Specialty:: cardio - History of Present Illness Chief Complaint: nausea History of Present Illness: 87 F admitted with nausea. noted to have abdominal tenderness on ER exam. Na low. CT abdomen incidentally showed small intra-abdominal fluid/edema, pericardial effusion appearing enlarged vs prior CT last week, and bilateral pleural effusions. was in ER 03/10 for pain in bialteral shoulders, bilateral chest and L neck, pleuritic component (including with coughing) s/p recent URI. CTA no PE. Echo unrevealing, small peric effusion. MPI no ischemia. pt sent home. states she has had NO MORE CP/SHOULDER PAIN. was taking tylenol 2 x per day at home over the weekend. cough persists. developed upper abdominal pain and nausea with some vomiting episodes so came to ER. no more abd pain or naus/vomiting here. remains cp free denies any sob at any time. can't lay flat b/c cough worsens. PMH: HTN HPL GERD diverticulitis - Past Medical History Cardio/Vascular: Yes: HTN, Hyperlipdemia Gastrointestinal: Yes: Diverticulitis, Diverticulosis, GERD, Peptic Ulcer Disease ...: No Musculoskeletal: Yes: Chronic low back pain (herniated discs) - Past Surgical History Additional Surgical History: rectal prolapse resection, bladder sling, left hip ORIF (07/31) - Alcohol/Substance Use Hx Alcohol Use: No History of Substance Use: reports: None - Smoking History Smoking history: Former smoker Have you smoked in the past 12 months: No If you are a former smoker, when did you quit?: 50YRS AGO - Social History ADL: Independent Home Medications - Allergies Allergies/Adverse Reactions: Allergies Allergy/AdvReac Type Severity Reaction Status Date / Time levofloxacin [From Levaquin] Allergy Verified 03/14/18 12:32 ciprofloxacin [From Cipro] AdvReac "NAUSEA" Verified 03/14/18 12:32 ciprofloxacin HCl AdvReac "NAUSEA" Verified 03/14/18 12:32 [From Cipro] NARCOTICS AdvReac Nausea Uncoded 03/14/18 12:32 PAIN MEDS AdvReac Nausea Uncoded 03/14/18 12:32 - Home Medications Home Medications: Ambulatory Orders Amlodipine Besylate 7.5 mg PO DAILY 03/09/18 Metoprolol Succinate 25 mg PO DAILY 03/09/18 Potassium Chloride 10 meq PO DAILY 03/09/18 Ranitidine [Zantac -] 150 mg PO DAILY 03/09/18 Ascorbic Acid [C-500] 500 mg PO DAILY 03/15/18 Beta-Carotene(A)-Vits C and E [E-400 C-500 & Beta Carotene] 1 tab PO DAILY 03/15 Biotin 5,000 mcg PO DAILY 03/15/18 Calcium Carb, Citrate/Vit D3 [Calcium + D3 ER Tablet] 1 tab PO DAILY 03/15/18 Co Q-10 100 mg Softgel 100 mg PO DAILY 03/15/18 Ferrous Sulfate [Feosol] 350 mg PO DAILY 03/15/18 Flaxseed Oil [Flaxseed] 1,000 mg PO DAILY 03/15/18 Luz Maria Root 550 mg PO DAILY 03/15/18 Glucosamine/MSM/Chondroitin A [Glucosamine Chondroit MSM Tab] 1 tab PO DAILY Magnesium 250 mg PO DAILY 03/15/18 Zinc 15 mg Lozenges 15 mg PO DAILY 03/15/18 Family Disease History - Family Disease History Family Disease History: CA: Father (liver), Sister (unknown) Other Family History: 4 bros, 3 sisters, most of old age; 1 sister with unknown malignancy Review of Systems - Review of Systems Constitutional: denies: Chills, Fever Eyes: denies: Eye Pain HENT: denies: Nasal Congestion Neck: denies: Stiffness Cardiovascular: denies: Palpitations Respiratory: denies: Orthopnea, PND Gastrointestinal: reports: Abdominal Pain. denies: Diarrhea, Rectal Bleeding Genitourinary: denies: Burning, Hematuria Musculoskeletal: denies: Muscle Pain Integumentary: denies: Rash Neurological: denies: Numbness, Seizure, Syncope Endocrine: denies: Excessive Sweating Hematology/Lymphatic: denies: Excessive Bleeding Vital Signs: Vital Signs Temperature 98.3 F 03/15/18 15:04 Pulse Rate 93 H 03/15/18 15:04 Respiratory Rate 18 03/15/18 15:04 Blood Pressure 132/83 03/15/18 15:04 O2 Sat by Pulse Oximetry (%) 93 L 03/15/18 08:03 Constitutional: Yes: Well Nourished, No Distress Eyes: No: Sclera Icterus HENT: No: Nasal Congestion Neck: No: Decreased ROM Respiratory: Yes: CTA Bilaterally, Diminished (bases), Rales (L base). No: Accessory Muscle Use, Wheezes Gastrointestinal: Yes: Normal Bowel Sounds. No: Distention, Hepatomegaly, Palpable Mass, Tenderness Cardiovascular: Yes: Regular Rate and Rhythm JVD: Yes Carotid Bruit: No PMI: Non-Displaced Heart Sounds: Yes: S1, S2. No: Gallop, Rub Murmur: No: Systolic Murmur, Diastolic Murmur Musculoskeletal: Yes: Other (No kyphosis) Extremities: No: Cool, Cyanosis Edema: No Peripheral Pulses: 2+ Left Carotid, 2+ Right Carotid, 2+ Left Doralis Pedis, 2+ Right Dorsalis Pedis Integumentary: No: Jaundice Neurological: Yes: Alert, Oriented (x3) Psychiatric: No: Agitated - Other Data Labs, Other Data: CBC, BMP 03/15/18 05:00 Laboratory Tests 03/14/18 03/14/18 03/14/18 12:55 23:50 23:50 WBC Hgb Plt Count ESR Sodium 125 L Potassium Carbon Dioxide BUN Creatinine AST ALT Troponin I < 0.02 C-Reactive Protein 11.4 H Albumin TSH 03/14/18 03/15/18 03/15/18 23:50 05:00 05:00 WBC 6.7 Hgb 10.8 Plt Count 292 ESR 91 H Sodium 129 L Potassium 3.9 Carbon Dioxide 26 BUN 8 Creatinine 0.8 AST 20 ALT 26 Troponin I C-Reactive Protein Albumin 2.3 L TSH 03/15/18 06:34 WBC Hgb Plt Count ESR Sodium Potassium Carbon Dioxide BUN Creatinine AST ALT Troponin I C-Reactive Protein Albumin TSH 3.34 Assessment/Plan ECG: CT chest (03/14): new RUQ soft tissue edema, small amount R perirenal fluid, ? peripancreatic edema/trace pericholecystic. partially imaged peric effusion probably at least moderate--appears increased vs 03/09 CT. new small-moderate bilat pleural effusions. unchanged L posterior basilar opacity c/w infiltrate and/or ATX Echo 03/15: nl LVSF. nl RVSF. small peric effusion (<1cm)--no change in appearance vs 03/10. + excess MV and TV inflow velocity variation during respiratory cycle--possibly early echo tamponade finding (no RV or RA free wall diast collapse). Echo 03/10/18: nl LV/EF. nl RV. nl LA. valves WNL. no pulm HTN. small peric effusion MPI 02/2018: nl mpi, nl lvef nausea, abd tenderness, small free fluid in abdomen: -? post-viral gastroparesis per GI senior sales consultant. 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 -echo images reviewed by me: effusion appears grossly stable in size vs last week study (last week's TDS however). small-moderate size (max dimension up to 1.2-1.3 cm in some views). no RV free wall collapse seen, however marked resp variation in TV inflow velocities (approx 50%), less marked findings in MV inflow velocities, suggestive of tamponade physiology. -pt does appear to me to have JVD on exam as well as + HJ reflux sign, suggesting elevated right sided cardiac pressures, likely on the basis of the pericardial effusion. -she appears well/non-toxic and has had very robust BPs here, hence THERE IS NO CLINICAL TAMPONADE. -however, i am not certain that pleuropericarditis with high right heart filling pressures explains the peritoneal findings--? passive congestion) -will start colchicine 0.6mg bid (decr to qd if diarrhea develops) -transfer to telemetry floor for close monitoring of bp status--d/c amlodipine to minimize risk of hypotension -no diuretics, no IVF for now (fluids will be needed if bp drops) -will d/w dr woodson whether or not he feels NSAID trial is safe in conjunction with PPI and other GI regimen, given not anemic here HTN: -bp controlled, no low's -cont present plan
--- NOTE | 2018-03-15 17:28 | CON.GI ---
Consult Consult Specialty:: Gastroenterology Referred by:: Dr Manuel Huynh Reason for Consultation:: Inability to eat - History of Present Illness Chief Complaint: Unable to eat for several days due to dyspepsia History of Present Illness: 87F was seen in the last week for a cough and chest pain. She was found to have pleural and pericardial effusions felt to be viral disease. She had an EST on 03/14 and was discharged. She was unable to eat over the weekend due to upper abdominal pain and nausea prompting her to return to the ER. She tells me that she did vomit on several occasions leading to hyponatremia. She is feeling better today. CTscan reveals distal gastric and duodenal inflammation and pericholecystic fluid. No stones were seen on ultrasound and her Hida scan was WNL. She denies diarrhea and last moved her bowels 3 days ago. She She las had an EGD on 01/09/11 which led to the removal of a fundic gland polyp and revealed shallow antral ulcerations. her last colonoscopy was done on 02/26/10 which revealed moderate diverticulosis universally. - History Source History Provided By: Patient Limitations to Obtaining History: No Limitations - Past Medical History Cardio/Vascular: Yes: HTN, Hyperlipdemia Gastrointestinal: Yes: Diverticulitis, Diverticulosis, GERD, Peptic Ulcer Disease, Other (ischemic colitis 1988, hemorrhoidal banding) ...: No Musculoskeletal: Yes: Chronic low back pain (lumbar herniated discs) - Past Surgical History Past Surgical History: Yes: Cataract Removal (bilaterally), Colonoscopy, Tonsillectomy, Upper Endoscopy Additional Surgical History: rectal prolapse resection, bladder sling,. 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 Place of : [facility] History of Recent Travel: No Home Medications - Allergies Allergies/Adverse Reactions: Allergies Allergy/AdvReac Type Severity Reaction Status Date / Time levofloxacin [From Levaquin] Allergy Verified 03/14/18 12:32 ciprofloxacin [From Cipro] AdvReac "NAUSEA" Verified 03/14/18 12:32 ciprofloxacin HCl AdvReac "NAUSEA" Verified 03/14/18 12:32 [From Cipro] NARCOTICS AdvReac Nausea Uncoded 03/14/18 12:32 PAIN MEDS AdvReac Nausea Uncoded 03/14/18 12:32 - Home Medications Home Medications: Ambulatory Orders Amlodipine Besylate 7.5 mg PO DAILY 03/09/18 Metoprolol Succinate 25 mg PO DAILY 03/09/18 Potassium Chloride 10 meq PO DAILY 03/09/18 Ranitidine [Zantac -] 150 mg PO DAILY 03/09/18 Ascorbic Acid [C-500] 500 mg PO DAILY 03/15/18 Beta-Carotene(A)-Vits C and E [E-400 C-500 & Beta Carotene] 1 tab PO DAILY 03/15 Biotin 5,000 mcg PO DAILY 03/15/18 Calcium Carb, Citrate/Vit D3 [Calcium + D3 ER Tablet] 1 tab PO DAILY 03/15/18 Co Q-10 100 mg Softgel 100 mg PO DAILY 03/15/18 Ferrous Sulfate [Feosol] 350 mg PO DAILY 03/15/18 Flaxseed Oil [Flaxseed] 1,000 mg PO DAILY 03/15/18 Luz Amria Root 550 mg PO DAILY 03/15/18 Glucosamine/MSM/Chondroitin A [Glucosamine Chondroit MSM Tab] 1 tab PO DAILY Magnesium 250 mg PO DAILY 03/15/18 Zinc 15 mg Lozenges 15 mg PO DAILY 03/15/18 Family Disease History - Family Disease History Family Disease History: CA: Father (liver), Sister (unknown), Other: Mother (CVA ), Daughter (thyroid problem) Other Family History: 4 bros, 3 sisters, most of old age; 1 sister with unknown malignancy Review of Systems - Review of Systems Constitutional: reports: Chills, Loss of Appetite, Unintentional Wgt. Loss Eyes: reports: No Symptoms HENT: reports: No Symptoms Neck: reports: No Symptoms Cardiovascular: reports: Chest Pain, Palpitations, Shortness of Breath Respiratory: reports: Cough Gastrointestinal: reports: Abdominal Pain, Nausea, Vomiting Musculoskeletal: reports: No Symptoms Physical Exam-GI Vital Signs: Vital Signs Temperature 98.3 F 03/15/18 15:04 Pulse Rate 93 H 03/15/18 15:04 Respiratory Rate 18 03/15/18 15:04 Blood Pressure 132/83 03/15/18 15:04 O2 Sat by Pulse Oximetry (%) 93 L 03/15/18 08:03 CBC,CMP WBC 6.7 K/mm3 (4.0-10.0) 03/15/18 05:00 RBC 3.62 M/mm3 (3.60-5.2) 03/15/18 05:00 Hgb 10.8 GM/dL (10.7-15.3) 03/15/18 05:00 Hct 31.8 % (32.4-45.2) L 03/15/18 05:00 MCV 87.9 fl (80-96) 03/15/18 05:00 MCH 29.9 pg (25.7-33.7) 03/15/18 05:00 MCHC 34.1 g/dl (32.0-36.0) 03/15/18 05:00 RDW 13.0 % (11.6-15.6) 03/15/18 05:00 Plt Count 292 K/MM3 (134-434) 03/15/18 05:00 MPV 7.5 fl (7.5-11.1) 03/15/18 05:00 Absolute Neuts (auto) 5.4 K/mm3 (1.5-8.0) 03/15/18 05:00 Neutrophils % 80.0 % (42.8-82.8) 03/15/18 05:00 Lymphocytes % 8.9 % (8-40) 03/15/18 05:00 Monocytes % 10.5 % (3.8-10.2) H 03/15/18 05:00 Eosinophils % 0.3 % (0-4.5) 03/15/18 05:00 Basophils % 0.3 % (0-2.0) 03/15/18 05:00 Nucleated RBC % 0 % (0-0) 03/15/18 05:00 ESR 91 mm/hr (0-30) H 03/14/18 23:50 Sodium 132 mmol/L (136-145) L 03/15/18 16:00 Potassium 3.9 mmol/L (3.5-5.1) 03/15/18 16:00 Chloride 97 mmol/L (98-107) L 03/15/18 16:00 Carbon Dioxide 29 mmol/L (21-32) 03/15/18 16:00 Anion Gap 6 MMOL/L (8-16) L 03/15/18 16:00 BUN 8 mg/dL (7-18) 03/15/18 16:00 Creatinine 0.9 mg/dL (0.55-1.3) 03/15/18 16:00 Creat Clearance w eGFR 59.09 (>60) 03/15/18 16:00 Random Glucose 103 mg/dL (74-106) 03/15/18 16:00 Serum Osmolality 262 mosm/kg (278-305) L 03/14/18 23:50 Calcium 8.5 mg/dL (8.5-10.1) 03/15/18 16:00 Magnesium 1.9 mg/dL (1.8-2.4) 03/14/18 12:55 Total Bilirubin 0.4 mg/dL (0.2-1) 03/15/18 05:00 AST 20 U/L (15-37) 03/15/18 05:00 ALT 26 U/L (13-61) 03/15/18 05:00 Alkaline Phosphatase 115 U/L (45-117) 03/15/18 05:00 Troponin I < 0.02 ng/ml (0.00-0.05) 03/14/18 12:55 C-Reactive Protein 11.4 MG/DL (0.00-0.3) H 03/14/18 23:50 Total Protein 6.0 g/dl (6.4-8.2) L 03/15/18 05:00 Albumin 2.3 g/dl (3.4-5.0) L 03/15/18 05:00 Lipase 202 U/L (73-393) 03/14/18 23:50 TSH 3.34 uIU/ml (0.358-3.74) 03/15/18 06:34 Current Medications Generic Name Dose Route Start Last Admin Trade Name Freq PRN Reason Stop Dose Admin Amlodipine Besylate 7.5 mg 03/15/18 10:00 03/15/18 10:29 Norvasc - PO 7.5 mg DAILY CK Administration Sodium Chloride 1,000 mls @ 75 mls/hr 03/15/18 16:15 03/15/18 17:32 Normal Saline - IV 75 mls/hr ASDIR CK Administration Metoprolol Succinate 25 mg 03/15/18 10:00 03/15/18 10:29 Toprol Xl - PO 25 mg DAILY CK Administration Ondansetron HCl 8 mg 03/14/18 22:46 Zofran Injection IVPB Q8H PRN NAUSEA Pantoprazole Sodium 40 mg 03/15/18 12:45 03/15/18 13:28 Protonix Iv IVPUSH 40 mg DAILY CK Administration Potassium Chloride 10 meq 03/15/18 10:00 03/15/18 10:29 K-Dur - PO 10 meq DAILY CK Administration Constitutional: Yes: Anxious Eyes: Yes: Conjunctiva Clear HENT: Yes: Normocephalic Neck: Yes: Supple Cardiovascular: Yes: Regular Rate and Rhythm Respiratory: Yes: Regular Gastrointestinal Inspection: Yes: WNL, Distention ...Auscultate: Yes: Normoactive Bowel Sounds ...Palpate: Yes: Soft, Other (nontender) ...Rectal Exam: Yes: Guaiac Negative (soft guaiac negative stool) Neurological: Yes: Alert, Oriented Labs: CBC, BMP 03/15/18 05:00 Imaging - Results Cat Scan: Report Reviewed (Suleiman Underwood Name: [facility] Phys: Melo Cottrell MD : [id number] Age: 87 Sex: F [facility] Acct: [id number] Loc: [address] Exam Date: Status: [place] [id number] Unit Number: [id number] EXAM#: TYPE/EXAM: RESULT: [id number] CT/ ABDOMEN PELVIS CT WITH CONTR Abdomen and pelvis CT (with contrast) Clinical information: right-sided pain Multiplanar imaging was performed following the intravenous administration of nonionic contrast. As requested enteric contrast was not administered. In comparison to a prior abdomen CT study of 01/21/2016 interval development of right upper quadrant soft tissue edema is seen which appears to be centered around the region of the distal stomach, duodenal cap and second portion of the duodenal sweep. Adjacent diverticulosis is noted along the hepatic flexure and transverse segment of the colon although acute diverticulitis is less likely. Development of a small amount of fluid is seen along the lower half of the right anterior pararenal fascia. There is possible mild peripancreatic edema. No abscess, pneumoperitoneum or bowel obstruction is identified. A trace amount of pericholecystic fluid is noted which is probably reactive in nature. There is no gallbladder overdistention or wall edema. No biliary tract dilatation is visualized. There is partial imaging of a pericardial effusion. This pericardial effusion is probably increased in size in comparison to a chest CT study of 03/09/2018. Currently the pericardial effusion is probably at least moderate in size. Interval development of small to moderate bilateral pleural effusions is noted Left posterior basilar opacity is again noted which may be on the basis of infiltrate and/or atelectasis The urinary bladder is overdistended with a current volume of approximately 600 mL. The remainder of the exam demonstrates no definite interval change. Bilateral renal cortical cyst including a 9 cm right renal upper pole cortical cysts. Right and left hepatic lobe cysts. The spleen, and adrenal glands demonstrate no discrete abnormality. There is no aortic aneurysm. No definite lymphadenopathy is identified. There is possible partial visualization of the appendix. No obvious indirect CT signs of acute appendicitis are noted. Interval resolution of left-sided colitis is seen. Status post interval left hip ORIF. Impression: In comparison to a prior exam of 01/21/2016 interval development of right upper quadrant soft tissue edema is noted which appears to be centered around the region of the distal stomach, due to AND second portion of duodenal sweep. Adjacent colonic diverticulosis is noted although acute diverticulitis is considered less likely. Development of a small amount of fluid is noted along the right anterior perirenal fascia. There is possible development of mild peripancreatic edema. A trace amount of pericholecystic fluid is noted. There is partial imaging of a pericardial effusion which is probably at least moderate in size.. This finding appears to be increased in size in comparison to a chest CT study of 03/09/2018. Correlate with echocardiography. Interval development of small to moderate bilateral pleural effusions is seen. Note is again made of left posterior basilar opacity which may represent infiltrate and/or atelectasis. The urinary bladder is overdistended with a current volume of approximately 600 mL. 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 I informed Moraima of the potential for such complications as perforation and hemorrhage. She has signed an informed consent. I have scheduled it for 03/18 to allow for further resolution of her effusions, cough and hyponatremia. I will allow clear liquids. If vomiting recurs then a trial of reglan will be undertaken. Continue PPI in the interim. Discussed with Dr Huynh. Code(s): R11.2 - NAUSEA WITH VOMITING, UNSPECIFIED Qualifiers: Vomiting type: unspecified Vomiting Intractability: non-intractable Qualified Code(s): R11.2 - Nausea with vomiting, unspecified (2) Diverticula of colon Code(s): K57.30 - DVRTCLOS OF LG INT W/O PERFORATION OR ABSCESS W/O BLEEDING (3) Gastric polyp Code(s): K31.7 - POLYP OF STOMACH AND DUODENUM (4) Gastritis Code(s): K29.70 - GASTRITIS, UNSPECIFIED, WITHOUT BLEEDING (5) Pleural effusion Code(s): J90 - PLEURAL EFFUSION, NOT ELSEWHERE CLASSIFIED (6) Chest pain Code(s): R07.9 - CHEST PAIN, UNSPECIFIED
[2018-03-15 17:31] LABS: ANION GAP 6 MMOL/L (8-16); BLOOD UREA NITROGEN 8 mg/dL (7-18); CALCIUM 8.5 mg/dL (8.5-10.1); CHLORIDE 97 mmol/L (98-107); CO2 29 mmol/L (21-32); CREATININE 0.9 mg/dL (0.55-1.3); GLUCOSE,RANDOM 103 mg/dL (74-106); POTASSIUM 3.9 mmol/L (3.5-5.1); SODIUM 132 mmol/L (136-145)
--- NOTE | 2018-03-15 18:44 | CON.ID ---
Consult Consult Specialty:: infectious disease Referred by:: dr gill Reason for Consultation:: ?pericarditis - History of Present Illness Chief Complaint: 85 yo female admitted 03/14 with left shoulder pain History of Present Illness: originally seen for chest pain- noted to have pericardial effusion ,ld/ corinne home with out pt f/u had a sough nonproductive, no fevers nausea developed pain left shoulder radiating to her chest and under her ribs she came to ED no sick contacts no travel lives alone - History Source History Provided By: Patient, Medical Record Limitations to Obtaining History: No Limitations - Past Medical History Cardio/Vascular: Yes: HTN, Hyperlipdemia Gastrointestinal: Yes: Diverticulitis, Diverticulosis, GERD, Hiatal Hernia, Peptic Ulcer Disease, Other (ischemic colitis 1988) ...: No Musculoskeletal: Yes: Chronic low back pain (herniated discs) - Past Surgical History Past Surgical History: Yes: Cataract Removal (bilaterally), Colonoscopy, Tonsillectomy, Upper Endoscopy Additional Surgical History: rectal prolapse resection, bladder sling, left hip ORIF (07/31) - Alcohol/Substance Use Hx Alcohol Use: No History of Substance Use: reports: None - Smoking History Smoking history: Former smoker Have you smoked in the past 12 months: No If you are a former smoker, when did you quit?: 50YRS AGO - Social History Usual Living Arrangement: Alone ADL: Independent 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 History of Recent Travel: No Home Medications - Allergies Allergies/Adverse Reactions: Allergies Allergy/AdvReac Type Severity Reaction Status Date / Time levofloxacin [From Levaquin] Allergy Verified 03/14/18 12:32 ciprofloxacin [From Cipro] AdvReac "NAUSEA" Verified 03/14/18 12:32 ciprofloxacin HCl AdvReac "NAUSEA" Verified 03/14/18 12:32 [From Cipro] NARCOTICS AdvReac Nausea Uncoded 03/14/18 12:32 PAIN MEDS AdvReac Nausea Uncoded 03/14/18 12:32 - Home Medications Home Medications: Ambulatory Orders Amlodipine Besylate 7.5 mg PO DAILY 03/09/18 Metoprolol Succinate 25 mg PO DAILY 03/09/18 Potassium Chloride 10 meq PO DAILY 03/09/18 Ranitidine [Zantac -] 150 mg PO DAILY 03/09/18 Ascorbic Acid [C-500] 500 mg PO DAILY 03/15/18 Beta-Carotene(A)-Vits C and E [E-400 C-500 & Beta Carotene] 1 tab PO DAILY 03/15 Biotin 5,000 mcg PO DAILY 03/15/18 Calcium Carb, Citrate/Vit D3 [Calcium + D3 ER Tablet] 1 tab PO DAILY 03/15/18 Co Q-10 100 mg Softgel 100 mg PO DAILY 03/15/18 Ferrous Sulfate [Feosol] 350 mg PO DAILY 03/15/18 Flaxseed Oil [Flaxseed] 1,000 mg PO DAILY 03/15/18 Luz Maria Root 550 mg PO DAILY 03/15/18 Glucosamine/MSM/Chondroitin A [Glucosamine Chondroit MSM Tab] 1 tab PO DAILY Magnesium 250 mg PO DAILY 03/15/18 Zinc 15 mg Lozenges 15 mg PO DAILY 03/15/18 Family Disease History - Family Disease History Family Disease History: CA: Father (liver), Sister (unknown), Other: Mother (CVA ), Daughter (thyroid problem) Other Family History: 4 bros, 3 sisters, most of old age; 1 sister with unknown malignancy Review of Systems - Review of Systems Constitutional: reports: Loss of Appetite. denies: Fever Eyes: reports: No Symptoms HENT: reports: No Symptoms. denies: Difficult Swallowing Neck: reports: No Symptoms Cardiovascular: reports: Chest Pain Respiratory: reports: Cough Gastrointestinal: reports: No Symptoms. denies: Abdominal Pain Physical Exam Vital Signs: Vital Signs Temperature 98.9 F 03/15/18 16:30 Pulse Rate 88 03/15/18 16:30 Respiratory Rate 20 03/15/18 16:30 Blood Pressure 125/81 03/15/18 16:30 O2 Sat by Pulse Oximetry (%) 93 L 03/15/18 08:03 Constitutional: Yes: Well Nourished, No Distress, Calm Eyes: Yes: Conjunctiva Clear, EOM Intact HENT: Yes: Atraumatic, Normocephalic Neck: Yes: Trachea Midline Cardiovascular: Yes: Regular Rate and Rhythm. No: Rub Respiratory: Yes: Diminished (bilaterally left greater then right) Gastrointestinal: Yes: Normal Bowel Sounds, Soft. No: Tenderness, Epigastrium, Tenderness, Rebound ...Rectal Exam: Yes: Deferred Extremities: Yes: WNL Edema: LLE: Trace, RLE: Trace Neurological: Yes: Alert, Oriented Labs: CBC, BMP 03/15/18 05:00 03/15/18 16:00 Imaging - Results Chest X-ray: Report Reviewed, Image Reviewed Cat Scan: Report Reviewed Other: Report Reviewed (hida scan negative) Problem List - Problems (1) Bilateral pleural effusion Code(s): J90 - PLEURAL EFFUSION, NOT ELSEWHERE CLASSIFIED (2) Pericardial effusion Code(s): I31.3 - PERICARDIAL EFFUSION (NONINFLAMMATORY) Assessment/Plan viral syndrome associated with pleural effusions, pericardial effusion suspect Left lower lobe atelectasis gastric and duodenal inflammationl no leukocytosis she doesnot look toxic no fevers esr/crp are elevated ?serositis killian/rf viral swab
[2018-03-15 21:19] LABS: N-TERMINAL BNP 1217.7 pg/ml (5-450); URIC ACID 4.5 mg/dL (2.6-7.2)
[2018-03-15] MEDS ORDERED: COLCHICINE 0.6 MG TABLET (FP) PO SCH (22:00)
[2018-03-15] MEDS ORDERED: PANTOPRAZOLE SODIUM 40 MG VIAL IVPB SCH (22:00)
[2018-03-16 07:46] LABS: BASO % 0.6 % (0-2.0); EOS % 1.3 % (0-4.5); HEMOGLOBIN 11.8 GM/dL (10.7-15.3); LYMPH % 15.6 % (8-40); MCH 29.5 pg (25.7-33.7); MCHC 33.7 g/dl (32.0-36.0); MEAN CELL VOLUME 87.4 fl (80-96); MONO % 11.1 % (3.8-10.2); NEUT % 71.4 % (42.8-82.8); PLATELET COUNT 365 K/MM3 (134-434); WHITE BLOOD COUNT 6.9 K/mm3 (4.0-10.0)
[2018-03-16] MEDS ORDERED: SODIUM CHLORIDE 1,000 ML IV SCH (07:55)
[2018-03-16 08:14] LABS: ANION GAP 8 MMOL/L (8-16); BLOOD UREA NITROGEN 8 mg/dL (7-18); CALCIUM 8.4 mg/dL (8.5-10.1); CHLORIDE 97 mmol/L (98-107); CO2 28 mmol/L (21-32); CREATININE 0.9 mg/dL (0.55-1.3); GLUCOSE,RANDOM 89 mg/dL (74-106); POTASSIUM 3.9 mmol/L (3.5-5.1); SODIUM 134 mmol/L (136-145)
--- NOTE | 2018-03-16 08:55 | PN ---
Progress Note (short form) - Note Progress Note: Dr. Maddox to document today. On telemetry due to concerns about pericarditis. 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 Adam Mueller for mild renal failure which has not been in evidence here but will be monitored now that she is on Motrin 6oo mg.
[2018-03-16] MEDS: IBUPROFEN 600 MG TABLET (FP) PO SCH ×3 (09:48→17:39)
[2018-03-16] MEDS: COLCHICINE 0.6 MG TABLET (FP) PO SCH ×4 (09:50→21:06)
[2018-03-16] MEDS: PANTOPRAZOLE SODIUM 40 MG VIAL IVPUSH SCH ×2 (09:50→21:06)
[2018-03-16] MEDS: metoPROLOL SUCCINATE 25 MG TAB.SR.24H (FP) PO SCH (09:50)
[2018-03-16] MEDS: POTASSIUM CHLORIDE TABS 10 MEQ TABLET.ER (FP) PO SCH (09:50)
--- NOTE | 2018-03-16 10:32 | PN ---
Progress Note (short form) - Note Progress Note: cc: nausea s: no chest discomfort, dyspnea. no palps, dizzy, lightheadedness Current Medications Colchicine (Colcrys -) 0.6 mg PO BID [facility] Last Admin: 03/16/18 09:50 Dose: 0.6 mg Sodium Chloride (Normal Saline -) 1,000 mls @ 75 mls/hr IV ASDIR [facility] Last Admin: 03/16/18 09:51 Dose: 75 mls/hr Ibuprofen (Motrin -) 600 mg PO PC [facility] Last Admin: 03/16/18 09:48 Dose: 600 mg Metoprolol Succinate (Toprol Xl -) 25 mg PO DAILY [facility] Last Admin: 03/16/18 09:50 Dose: 25 mg Ondansetron HCl (Zofran Injection) 8 mg IVPB Q8H PRN PRN Reason: NAUSEA Pantoprazole Sodium (Protonix Iv) 40 mg IVPUSH BID [facility] Last Admin: 03/16/18 09:50 Dose: 40 mg Potassium Chloride (K-Dur -) 10 meq PO DAILY [facility] Last Admin: 03/16/18 09:50 Dose: 10 meq Vital Signs: Vital Signs Period Temp Pulse Resp BP Sys/Hurtado Pulse Ox Last 24 Hr 98.0 F-98.9 F 77-98 18-20 123-150/57-88 94-98 Constitutional: Yes: Well Nourished, No Distress Eyes: No: Sclera Icterus HENT: No: Nasal Congestion Neck: No: Decreased ROM Respiratory: Yes: CTA Bilaterally, Diminished (bases), Rales (L base). No: Accessory Muscle Use, Wheezes Gastrointestinal: Yes: Normal Bowel Sounds. No: Distention, Hepatomegaly, Palpable Mass, Tenderness Cardiovascular: Yes: Regular Rate and Rhythm JVD: Yes Carotid Bruit: No PMI: Non-Displaced Heart Sounds: Yes: S1, S2. No: Gallop, Rub Murmur: No: Systolic Murmur, Diastolic Murmur Musculoskeletal: Yes: Other (No kyphosis) Extremities: No: Cool, Cyanosis Edema: No Peripheral Pulses: 2+ Left Carotid, 2+ Right Carotid, 2+ Left Doralis Pedis, 2+ Right Dorsalis Pedis Integumentary: No: Jaundice Neurological: Yes: Alert, Oriented (x3) Psychiatric: No: Agitated Assessment/Plan ECG: sinus, no ischemic changes CT chest (03/14): new RUQ soft tissue edema, small amount R perirenal fluid, ? peripancreatic edema/trace pericholecystic. partially imaged peric effusion probably at least moderate--appears increased vs 03/09 CT. new small-moderate bilat pleural effusions. unchanged L posterior basilar opacity c/w infiltrate and/or ATX Echo 03/15: nl LVSF. nl RVSF. small peric effusion (<1cm)--no change in appearance vs 03/10. + excess MV and TV inflow velocity variation during respiratory cycle--possibly early echo tamponade finding (no RV or RA free wall diast collapse). Echo 03/10/18: nl LV/EF. nl RV. nl LA. valves WNL. no pulm HTN. small peric effusion MPI 02/2018: nl mpi, nl lvef nausea, abd tenderness, small free fluid in abdomen: -? post-viral gastroparesis per GI [employer] consultant. also want to r/o PUD based on CT adomen fluid near stomach - symptoms improving -plan is for EGD later this week if effusions have improved, likely 03/18, Dr. 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 -echo images reviewed by Dr. Cabrera: effusion appears grossly stable in size vs last week study (last week's TDS however). small-moderate size (max dimension up to 1.2-1.3 cm in some views). no RV free wall collapse seen, however marked resp variation in TV inflow velocities (approx 50%), less marked findings in MV inflow velocities, suggestive of tamponade physiology. -mild JVD, HJR present, suggesting elevated right sided cardiac pressures -clinically no tamponade, BP/HR remains stable -unclear if pleuropericarditis with high right heart filling pressures explains the peritoneal findings--? passive congestion -will start colchicine 0.6mg bid (decr to qd if diarrhea develops) - on ibuprofen, pt guaiac neg and not anemic, Dr. Alvarenga GI following, on PPI as well - if develops abd pain, anemia will consider prednisone as alternative tx - holding amlodipine to minimize risk of hypotension - no diuretics, no IVF for now (fluids will be needed if bp drops) - repeat echo 3-4 days after starting tx to reassess effusion - deferring CT surg consult for window, pt is asymptomatic and normotensive HTN: -bp controlled, no low's -holding amlodipine
--- NOTE | 2018-03-16 12:37 | PN ---
Progress Note, Physician Chief Complaint: Ms Franco says she is doing well today. No cp, sob, n/v. Had one loose bowel movement this am. - Current Medication List Current Medications: Active Medications Colchicine (Colcrys -) 0.6 mg PO BID [facility] Last Admin: 03/16/18 12:17 Dose: 0.6 mg Sodium Chloride (Normal Saline -) 1,000 mls @ 75 mls/hr IV ASDIR [facility] Last Admin: 03/16/18 09:51 Dose: 75 mls/hr Ibuprofen (Motrin -) 600 mg PO PC [facility] Last Admin: 03/16/18 12:09 Dose: 600 mg Metoprolol Succinate (Toprol Xl -) 25 mg PO DAILY [facility] Last Admin: 03/16/18 09:50 Dose: 25 mg Ondansetron HCl (Zofran Injection) 8 mg IVPB Q8H PRN PRN Reason: NAUSEA Pantoprazole Sodium (Protonix Iv) 40 mg IVPUSH BID [facility] Last Admin: 03/16/18 09:50 Dose: 40 mg Potassium Chloride (K-Dur -) 10 meq PO DAILY [facility] Last Admin: 03/16/18 09:50 Dose: 10 meq - Objective Vital Signs: Vital Signs Temperature 36.9 C 03/16/18 12:01 Pulse Rate 84 03/16/18 12:01 Respiratory Rate 18 03/16/18 12:01 Blood Pressure 131/75 03/16/18 12:01 O2 Sat by Pulse Oximetry (%) 98 03/15/18 20:38 Constitutional: Yes: Well Nourished, No Distress, Calm Cardiovascular: Yes: Regular Rate and Rhythm. No: Gallop, Murmur, Rub Respiratory: Yes: Regular, CTA Bilaterally. No: Rales, Rhonchi, Wheezes Gastrointestinal: Yes: Normal Bowel Sounds, Soft. No: Distention, Tenderness Extremities: Yes: WNL Edema: No Labs: CBC, BMP 03/16/18 07:10 03/16/18 07:10 Problem List - Problems (1) Gastritis Assessment/Plan: -appreciate GI assistance -planning for EGD on Wednesday -monitor closely while on ibuprofen Code(s): K29.70 - GASTRITIS, UNSPECIFIED, WITHOUT BLEEDING Qualifiers: Gastritis type: unspecified gastritis Chronicity: acute Gastritis bleeding: without bleeding Qualified Code(s): K29.00 - Acute gastritis without bleeding (2) Pericardial effusion without cardiac tamponade Assessment/Plan: -case d/w Dr Espinoza -continue colchicine and ibuprofen -will need repeat ECHO Code(s): I31.3 - PERICARDIAL EFFUSION (NONINFLAMMATORY) (3) Pleural effusion Assessment/Plan: -monitor -currently not short of breath Code(s): J90 - PLEURAL EFFUSION, NOT ELSEWHERE CLASSIFIED (4) GERD (gastroesophageal reflux disease) Assessment/Plan: -continue protonix bid Code(s): K21.9 - GASTRO-ESOPHAGEAL REFLUX DISEASE WITHOUT ESOPHAGITIS Qualifiers: Esophagitis presence: without esophagitis Qualified Code(s): K21.9 - Gastro -esophageal reflux disease without esophagitis (5) Hypertension Assessment/Plan: -controlled -continue current management Code(s): I10 - ESSENTIAL (PRIMARY) HYPERTENSION Qualifiers: Hypertension type: essential hypertension Qualified Code(s): I10 - Essential (primary) hypertension (6) Hyponatremia Assessment/Plan: -much improved -secondary to previous episodes of emesis -holding IVF Code(s): E87.1 - HYPO-OSMOLALITY AND HYPONATREMIA
--- NOTE | 2018-03-16 15:37 | EKG ---
Test Reason : Blood Pressure : / mmHG Vent. Rate : 095 BPM Atrial Rate : 095 BPM P-R Int : 124 ms QRS Dur : 080 ms QT Int : 360 ms P-R-T Axes : 000 -17 048 degrees QTc Int : 452 ms POOR DATA QUALITY, INTERPRETATION MAY BE ADVERSELY AFFECTED NORMAL SINUS RHYTHM NONSPECIFIC T WAVE ABNORMALITY ABNORMAL ECG WHEN COMPARED WITH ECG OF 10-MAR-2018 08:48, NO SIGNIFICANT CHANGE WAS FOUND Confirmed by TUCKER LOWRY, CHARLIE ([id number]) on 03/16/2018 3:37:41 PM Referred By: Confirmed By:CHARLIE CEBALLOS MD
--- NOTE | 2018-03-16 17:46 | PN ---
Progress Note (short form) - Note Progress Note: moved to telemetry no complaints less cough looks more comfortable tolerating clears Vital Signs Period Temp Pulse Resp BP Sys/Hurtado Pulse Ox Last 24 Hr 97.6 F-98.4 F 77-98 18-20 123-150/57-88 94-98 cor-rrr lungs decreased bs on the left abd soft,nt ext no edema CBC, BMP 03/16/18 07:10 03/16/18 07:10 Microbiology 03/16/18 15:15 Nasopharyngeal Swab Respiratory Virus (PCR) - Preliminary 03/15/18 08:50 Sputum - Expectorated Gram Stain - Final 03/15/18 08:50 Sputum - Expectorated Sputum Culture - Preliminary NORMAL RESPIRATORY HAM 03/14/18 18:50 Urine - Urine Clean Catch Urine Culture - Final Contaminated: Please Repeat 03/15/18 10:15 Urine For Antigen Detection Legionella Antigen - Final 03/15/18 10:15 Urine For Antigen Detection Streptococcus pneumoniae Antigen (M - Final 03/15/18 08:10 Nasopharyngeal Swab Influenza Types A,B Antigen - Final 03/15/18 08:10 Nasopharyngeal Swab - Final a/p serositis- pericarditis, pleural effusion, elevated esr/crp, check killian/rf clinicaly appears improved Problem List - Problems (1) Bilateral pleural effusion Code(s): J90 - PLEURAL EFFUSION, NOT ELSEWHERE CLASSIFIED (2) Pericardial effusion Code(s): I31.3 - PERICARDIAL EFFUSION (NONINFLAMMATORY)
[2018-03-17 06:54] LABS: BASO % 0.4 % (0-2.0); EOS % 1.4 % (0-4.5); HEMATOCRIT 35.8 % (32.4-45.2); HEMOGLOBIN 11.9 GM/dL (10.7-15.3); LYMPH % 8.7 % (8-40); MCH 29.2 pg (25.7-33.7); MCHC 33.3 g/dl (32.0-36.0); MEAN CELL VOLUME 87.7 fl (80-96); MONO % 7.8 % (3.8-10.2); NEUT % 81.7 % (42.8-82.8); PLATELET COUNT 401 K/MM3 (134-434); RBC 4.08 M/mm3 (3.60-5.2); RDW 13.1 % (11.6-15.6); WHITE BLOOD COUNT 8.5 K/mm3 (4.0-10.0)
[2018-03-17 07:12] LABS: ANION GAP 10 MMOL/L (8-16); BLOOD UREA NITROGEN 6 mg/dL (7-18); CALCIUM 8.6 mg/dL (8.5-10.1); CHLORIDE 95 mmol/L (98-107); CO2 28 mmol/L (21-32); CREATININE 0.9 mg/dL (0.55-1.3); GLUCOSE,RANDOM 86 mg/dL (74-106); MAGNESIUM 1.8 mg/dL (1.8-2.4); PHOSPHOROUS 2.9 mg/dL (2.5-4.9); POTASSIUM 3.5 mmol/L (3.5-5.1); SODIUM 133 mmol/L (136-145)
--- NOTE | 2018-03-17 09:09 | PN ---
Progress Note (short form) - Note Progress Note: Dr. Maddox/[employer] Lyle to document today. Feels better and renal lab, CBC stable PCR Viral test pending. For EGD Tolerating Rx.
[2018-03-17] MEDS: metoPROLOL SUCCINATE 25 MG TAB.SR.24H (FP) PO SCH (09:33)
[2018-03-17] MEDS: COLCHICINE 0.6 MG TABLET (FP) PO SCH ×2 (09:33→21:31)
[2018-03-17] MEDS: IBUPROFEN 600 MG TABLET (FP) PO SCH ×3 (09:33→17:43)
[2018-03-17] MEDS: PANTOPRAZOLE SODIUM 40 MG VIAL IVPUSH SCH ×2 (09:33→21:32)
[2018-03-17] MEDS: POTASSIUM CHLORIDE TABS 10 MEQ TABLET.ER (FP) PO SCH (09:33)
--- NOTE | 2018-03-17 11:17 | PN ---
Progress Note (short form) - Note Progress Note: cc: nausea s: no chest discomfort, dyspnea. no palps, dizzy, lightheadedness Current Medications Generic Name Dose Route Start Last Admin Trade Name Patrick PRN Reason Stop Dose Admin Colchicine 0.6 mg 03/16/18 10:00 03/17/18 09:33 Colcrys - PO 0.6 mg BID [facility] Administration Ibuprofen 600 mg 03/16/18 09:00 03/17/18 09:33 Motrin - PO 600 mg PC CK Administration Metoprolol Succinate 25 mg 03/16/18 10:00 03/17/18 09:33 Toprol Xl - PO 25 mg DAILY [facility] Administration Ondansetron HCl 8 mg 03/16/18 07:55 Zofran Injection IVPB Q8H PRN NAUSEA Pantoprazole Sodium 40 mg 03/16/18 09:29 03/17/18 09:33 Protonix Iv IVPUSH 40 mg BID [facility] Administration Potassium Chloride 10 meq 03/16/18 10:00 03/17/18 09:33 K-Dur - PO 10 meq DAILY [facility] Administration Vital Signs: Vital Signs Period Temp Pulse Resp BP Sys/Hurtado Pulse Ox Last 24 Hr 97.2 F-98.4 F 80-97 18-20 130-152/75-91 98 Constitutional: Yes: Well Nourished, No Distress Eyes: No: Sclera Icterus Respiratory: Yes: CTA Bilaterally, Diminished (bases), Rales (L base). No: Accessory Muscle Use, Wheezes Gastrointestinal: Yes: Normal Bowel Sounds. No: Distention, Hepatomegaly, Palpable Mass, Tenderness Cardiovascular: Yes: Regular Rate and Rhythm Heart Sounds: Yes: S1, S2. No: Gallop, Rub Murmur: No: Systolic Murmur, Diastolic Murmur Extremities: No: Cool, Cyanosis Edema: No Integumentary: No: Jaundice Neurological: Yes: Alert, Oriented (x3) Psychiatric: No: Agitated CBC, BMP 03/17/18 05:30 03/17/18 05:30 Assessment/Plan ECG: sinus, no ischemic changes CT chest (03/14): new RUQ soft tissue edema, small amount R perirenal fluid, ? peripancreatic edema/trace pericholecystic. partially imaged peric effusion probably at least moderate--appears increased vs 10/24 CT. new small-moderate bilat pleural effusions. unchanged L posterior basilar opacity c/w infiltrate and/or ATX Echo 03/15: nl LVSF. nl RVSF. small peric effusion (<1cm)--no change in appearance vs 03/10. + excess MV and TV inflow velocity variation during respiratory cycle--possibly early echo tamponade finding (no RV or RA free wall diast collapse). Echo 03/10/18: nl LV/EF. nl RV. nl LA. valves WNL. no pulm HTN. small peric effusion MPI 02/2018: nl mpi, nl lvef tele: sr nausea, abd tenderness, small free fluid in abdomen: -? post-viral gastroparesis per GI [employer] consultant. also want to r/o PUD based on CT adomen fluid near stomach - symptoms improving -plan is for EGD 03/18, Dr. 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 -echo images reviewed by Dr. Cabrera: effusion appears grossly stable in size vs last week study (last week's TDS however). small-moderate size (max dimension up to 1.2-1.3 cm in some views). no RV free wall collapse seen, however marked resp variation in TV inflow velocities (approx 50%), less marked findings in MV inflow velocities, suggestive of tamponade physiology. -mild JVD, HJR present, suggesting elevated right sided cardiac pressures -clinically no tamponade, BP/HR remains stable -unclear if pleuropericarditis with high right heart filling pressures explains the peritoneal findings--? passive congestion -will start colchicine 0.6mg bid (decr to qd if diarrhea develops) - on ibuprofen, pt guaiac neg and not anemic, Dr. Alvarenga GI following, on PPI as well - if develops abd pain, anemia will consider prednisone as alternative tx - holding amlodipine to minimize risk of hypotension - no diuretics, no IVF for now (fluids will be needed if bp drops) - repeat echo 3-4 days after starting tx to reassess effusion - deferring CT surg consult for window, pt is asymptomatic and normotensive HTN: -bp controlled, no low's -holding amlodipine
--- NOTE | 2018-03-17 13:05 | PN ---
Progress Note, Physician Chief Complaint: Ms Franco states she is tired of drinking broth but otherwise feels fine. No cp , sob, n/v. - Current Medication List Current Medications: Active Medications Colchicine (Colcrys -) 0.6 mg PO BID [facility] Last Admin: 03/17/18 09:33 Dose: 0.6 mg Ibuprofen (Motrin -) 600 mg PO PC [facility] Last Admin: 03/17/18 09:33 Dose: 600 mg Metoprolol Succinate (Toprol Xl -) 25 mg PO DAILY [facility] Last Admin: 03/17/18 09:33 Dose: 25 mg Ondansetron HCl (Zofran Injection) 8 mg IVPB Q8H PRN PRN Reason: NAUSEA Pantoprazole Sodium (Protonix Iv) 40 mg IVPUSH BID [facility] Last Admin: 03/17/18 09:33 Dose: 40 mg Potassium Chloride (K-Dur -) 10 meq PO DAILY [facility] Last Admin: 03/17/18 09:33 Dose: 10 meq - Objective Vital Signs: Vital Signs Temperature 36.5 C 03/17/18 08:51 Pulse Rate 88 03/17/18 05:32 Respiratory Rate 20 03/17/18 08:51 Blood Pressure 146/78 03/17/18 08:51 O2 Sat by Pulse Oximetry (%) 98 03/17/18 08:50 Constitutional: Yes: Well Nourished, No Distress, Calm Cardiovascular: Yes: Regular Rate and Rhythm. No: Gallop, Murmur, Rub Respiratory: Yes: Regular, CTA Bilaterally. No: Rales, Rhonchi, Wheezes Gastrointestinal: Yes: Normal Bowel Sounds, Soft. No: Distention, Tenderness Extremities: Yes: WNL Edema: No Labs: CBC, BMP 03/17/18 05:30 03/17/18 05:30 Problem List - Problems (1) Gastritis Code(s): K29.70 - GASTRITIS, UNSPECIFIED, WITHOUT BLEEDING Qualifiers: Gastritis type: unspecified gastritis Chronicity: acute Gastritis bleeding: without bleeding Qualified Code(s): K29.00 - Acute gastritis without bleeding (2) Pericardial effusion without cardiac tamponade Code(s): I31.3 - PERICARDIAL EFFUSION (NONINFLAMMATORY) (3) Pleural effusion Code(s): J90 - PLEURAL EFFUSION, NOT ELSEWHERE CLASSIFIED (4) GERD (gastroesophageal reflux disease) Code(s): K21.9 - GASTRO-ESOPHAGEAL REFLUX DISEASE WITHOUT ESOPHAGITIS Qualifiers: Esophagitis presence: without esophagitis Qualified Code(s): K21.9 - Gastro -esophageal reflux disease without esophagitis (5) Hypertension Code(s): I10 - ESSENTIAL (PRIMARY) HYPERTENSION Qualifiers: Hypertension type: essential hypertension Qualified Code(s): I10 - Essential (primary) hypertension (6) Hyponatremia Code(s): E87.1 - HYPO-OSMOLALITY AND HYPONATREMIA Assessment/Plan (1) Gastritis Assessment/Plan: -appreciate GI assistance -planning for EGD on Wednesday -monitor closely while on ibuprofen Code(s): K29.70 - GASTRITIS, UNSPECIFIED, WITHOUT BLEEDING Qualifiers: Gastritis type: unspecified gastritis Chronicity: acute Gastritis bleeding: without bleeding Qualified Code(s): K29.00 - Acute gastritis without bleeding (2) Pericardial effusion without cardiac tamponade Assessment/Plan: -cardiology note reviewed -continue colchicine and ibuprofen -defer ECHO to cardiology Code(s): I31.3 - PERICARDIAL EFFUSION (NONINFLAMMATORY) (3) Pleural effusion Assessment/Plan: -monitor -currently not short of breath Code(s): J90 - PLEURAL EFFUSION, NOT ELSEWHERE CLASSIFIED (4) GERD (gastroesophageal reflux disease) Assessment/Plan: -continue protonix bid Code(s): K21.9 - GASTRO-ESOPHAGEAL REFLUX DISEASE WITHOUT ESOPHAGITIS Qualifiers: Esophagitis presence: without esophagitis Qualified Code(s): K21.9 - Gastro -esophageal reflux disease without esophagitis (5) Hypertension Assessment/Plan: -controlled -continue current management Code(s): I10 - ESSENTIAL (PRIMARY) HYPERTENSION Qualifiers: Hypertension type: essential hypertension Qualified Code(s): I10 - Essential (primary) hypertension (6) Hyponatremia Assessment/Plan: -stable -continue to monitor Code(s): E87.1 - HYPO-OSMOLALITY AND HYPONATREMIA
--- NOTE | 2018-03-17 21:45 | PN ---
Progress Note, Physician History of Present Illness: Pt with upper abdominal ascites and inflammatory changes, centered around distal stomach and proximal duodenum, pleural effusions and small pericardial effusion, with recent/lingering URI/?viral illness. She is seen and examined in bed in room, reports feeling better in last couple days. No nausea or pain, had been tolerating clear liquids but is NPO after midnight tonight for planned endoscopy tomorrow. Still has occasional cough. Sats have been 96-97% RA. Has IS but has not used much yet - can get 500-750ml with fair to good effort sitting up. Not using any oxygen supplementation. Had very soft BM earlier today. - Current Medication List Current Medications: Active Medications Colchicine (Colcrys -) 0.6 mg PO BID [facility] Last Admin: 03/17/18 21:31 Dose: 0.6 mg Ibuprofen (Motrin -) 600 mg PO PC [facility] Last Admin: 03/17/18 17:43 Dose: 600 mg Metoprolol Succinate (Toprol Xl -) 25 mg PO DAILY [facility] Last Admin: 03/17/18 09:33 Dose: 25 mg Ondansetron HCl (Zofran Injection) 8 mg IVPB Q8H PRN PRN Reason: NAUSEA Pantoprazole Sodium (Protonix Iv) 40 mg IVPUSH BID [facility] Last Admin: 03/17/18 21:32 Dose: 40 mg Potassium Chloride (K-Dur -) 10 meq PO DAILY [facility] Last Admin: 03/17/18 09:33 Dose: 10 meq - Objective Vital Signs: Vital Signs Temperature 97.5 F L 03/17/18 20:16 Pulse Rate 90 03/17/18 20:16 Respiratory Rate 20 03/17/18 20:16 Blood Pressure 153/86 03/17/18 20:16 O2 Sat by Pulse Oximetry (%) 96 03/17/18 20:16 Constitutional: Yes: Well Nourished, No Distress, Calm Eyes: Yes: Conjunctiva Clear, EOM Intact HENT: Yes: Atraumatic, Normocephalic Respiratory: Yes: Regular, CTA Bilaterally, Diminished (at left base but improved from 2d ago). No: On Nasal O2, Wheezes Gastrointestinal: Yes: Soft, Distention (mild, some tympany). No: Tenderness, Tenderness, Epigastrium ...Rectal Exam: Yes: Deferred Musculoskeletal: No: Joint Stiffness, Joint Swelling Extremities: No: Cool, Cyanosis Integumentary: No: Jaundice, Rash Neurological: Yes: Alert, Oriented Labs: CBC, BMP 03/17/18 05:30 03/17/18 05:30 CMP Sodium 133 mmol/L (136-145) L 03/17/18 05:30 Potassium 3.5 mmol/L (3.5-5.1) 03/17/18 05:30 Chloride 95 mmol/L (98-107) L 03/17/18 05:30 Carbon Dioxide 28 mmol/L (21-32) 03/17/18 05:30 Anion Gap 10 MMOL/L (8-16) 03/17/18 05:30 BUN 6 mg/dL (7-18) L 03/17/18 05:30 Creatinine 0.9 mg/dL (0.55-1.3) 03/17/18 05:30 Creat Clearance w eGFR 59.09 (>60) 03/17/18 05:30 Random Glucose 86 mg/dL (74-106) 03/17/18 05:30 Serum Osmolality 262 mosm/kg (278-305) L 03/14/18 23:50 Uric Acid 4.5 mg/dL (2.6-7.2) 03/15/18 16:00 Calcium 8.6 mg/dL (8.5-10.1) 03/17/18 05:30 Phosphorus 2.9 mg/dL (2.5-4.9) 03/17/18 05:30 Magnesium 1.8 mg/dL (1.8-2.4) 03/17/18 05:30 Total Bilirubin 0.4 mg/dL (0.2-1) 03/15/18 05:00 AST 20 U/L (15-37) 03/15/18 05:00 ALT 26 U/L (13-61) 03/15/18 05:00 Alkaline Phosphatase 115 U/L (45-117) 03/15/18 05:00 Troponin I < 0.02 ng/ml (0.00-0.05) 03/14/18 12:55 C-Reactive Protein 8.3 MG/DL (0.00-0.3) H 03/16/18 07:10 B-Natriuretic Peptide 1217.7 pg/ml (5-450) H 03/15/18 16:00 Total Protein 6.0 g/dl (6.4-8.2) L 03/15/18 05:00 Albumin 2.3 g/dl (3.4-5.0) L 03/15/18 05:00 Lipase 202 U/L (73-393) 03/14/18 23:50 TSH 3.34 uIU/ml (0.358-3.74) 03/15/18 06:34 Microbiology 03/15/18 08:50 Gram Stain - Final Sputum - Expectorated Sputum Culture - Final NORMAL RESPIRATORY HAM - ....Imaging Chest X-ray: Pending Problem List - Problems (1) Other ascites Assessment/Plan: not primary gallbladder pathology GI to investigate possibility of PUD in antrum/duodenum with scope in am clinically improving from admission exam tolerated clears pending EGD results, may be able to slowly resume po diet and monitor for symptoms Code(s): R18.8 - OTHER ASCITES (2) Chronic peptic ulcer without hemorrhage or perforation Assessment/Plan: for EGD in am with GI NPO after midnight on PPI Code(s): K27.7 - CHRONIC PEPTIC ULCER, SITE UNSP, W/O HEMORRHAGE OR PERF (3) GERD (gastroesophageal reflux disease) Code(s): K21.9 - GASTRO-ESOPHAGEAL REFLUX DISEASE WITHOUT ESOPHAGITIS Qualifiers: Esophagitis presence: without esophagitis Qualified Code(s): K21.9 - Gastro -esophageal reflux disease without esophagitis (4) Nausea & vomiting Assessment/Plan: resolved Code(s): R11.2 - NAUSEA WITH VOMITING, UNSPECIFIED Qualifiers: Vomiting type: unspecified Vomiting Intractability: non-intractable Qualified Code(s): R11.2 - Nausea with vomiting, unspecified (5) Hyponatremia Assessment/Plan: improved - Na up to 133 K a bit low Code(s): E87.1 - HYPO-OSMOLALITY AND HYPONATREMIA (6) Bilateral pleural effusion Assessment/Plan: will recheck CXR tonight to evaluate effusions clinically improving Code(s): J90 - PLEURAL EFFUSION, NOT ELSEWHERE CLASSIFIED (7) Pericardial effusion without cardiac tamponade Assessment/Plan: echo showed similar to prior last week no clinical evidence of tamponade cardiology following Code(s): I31.3 - PERICARDIAL EFFUSION (NONINFLAMMATORY) (8) Hypertension Code(s): I10 - ESSENTIAL (PRIMARY) HYPERTENSION Qualifiers: Hypertension type: essential hypertension Qualified Code(s): I10 - Essential (primary) hypertension
[2018-03-18 07:02] LABS: BASO % 0.8 % (0-2.0); EOS % 1.3 % (0-4.5); HEMATOCRIT 35.8 % (32.4-45.2); HEMOGLOBIN 11.8 GM/dL (10.7-15.3); LYMPH % 12.9 % (8-40); MCH 28.9 pg (25.7-33.7); MCHC 32.9 g/dl (32.0-36.0); MEAN CELL VOLUME 87.6 fl (80-96); MONO % 9.6 % (3.8-10.2); NEUT % 75.4 % (42.8-82.8); PLATELET COUNT 404 K/MM3 (134-434); RBC 4.09 M/mm3 (3.60-5.2); RDW 13.2 % (11.6-15.6); WHITE BLOOD COUNT 7.5 K/mm3 (4.0-10.0)
[2018-03-18 07:39] LABS: ANION GAP 11 MMOL/L (8-16); BLOOD UREA NITROGEN 6 mg/dL (7-18); CALCIUM 8.7 mg/dL (8.5-10.1); CHLORIDE 97 mmol/L (98-107); CO2 29 mmol/L (21-32); CREATININE 0.9 mg/dL (0.55-1.3); GLUCOSE,RANDOM 91 mg/dL (74-106); MAGNESIUM 1.9 mg/dL (1.8-2.4); PHOSPHOROUS 3.5 mg/dL (2.5-4.9); POTASSIUM 3.7 mmol/L (3.5-5.1); SODIUM 137 mmol/L (136-145)
[2018-03-18] MEDS: metoPROLOL SUCCINATE 25 MG TAB.SR.24H (FP) PO SCH (09:19)
[2018-03-18] MEDS: COLCHICINE 0.6 MG TABLET (FP) PO SCH ×2 (09:19→21:30)
[2018-03-18] MEDS: IBUPROFEN 600 MG TABLET (FP) PO SCH ×3 (09:19→17:32)
[2018-03-18] MEDS: PANTOPRAZOLE SODIUM 40 MG VIAL IVPUSH SCH ×2 (09:19→21:30)
[2018-03-18] MEDS: POTASSIUM CHLORIDE TABS 10 MEQ TABLET.ER (FP) PO SCH (09:19)
[2018-03-18] MEDS ORDERED: SIMETHICONE 80 MG TAB.CHEW (FP) PO PRN (10:02)
--- NOTE | 2018-03-18 10:02 | PN ---
Progress Note (short form) - Note Progress Note: Dr. Maddox/DEBI Alvarenga to document today. ? Repeat Echocardiogram today. Ist meal this AM and abdominal bloating: Mylicon.
--- NOTE | 2018-03-18 11:08 | PN ---
Progress Note, Physician Chief Complaint: Pt sitting in chair in no acute distress. reports abd pain/nausea/bloating w/ soft diet this am. otherwise doing well, denies any chest pain, sob, n/v/d - Current Medication List Current Medications: Active Medications Colchicine (Colcrys -) 0.6 mg PO BID [facility] Last Admin: 03/18/18 09:19 Dose: 0.6 mg Ibuprofen (Motrin -) 600 mg PO PC [facility] Last Admin: 03/18/18 09:19 Dose: 600 mg Metoprolol Succinate (Toprol Xl -) 25 mg PO DAILY [facility] Last Admin: 03/18/18 09:19 Dose: 25 mg Ondansetron HCl (Zofran Injection) 8 mg IVPB Q8H PRN PRN Reason: NAUSEA Pantoprazole Sodium (Protonix Iv) 40 mg IVPUSH BID [facility] Last Admin: 03/18/18 09:19 Dose: 40 mg Potassium Chloride (K-Dur -) 10 meq PO DAILY [facility] Last Admin: 03/18/18 09:19 Dose: 10 meq Simethicone (Mylicon -) 80 mg PO QID PRN PRN Reason: GAS - Objective Vital Signs: Vital Signs Temperature 98.3 F 03/18/18 06:00 Pulse Rate 109 H 03/18/18 09:44 Respiratory Rate 20 03/18/18 08:28 Blood Pressure 122/83 03/18/18 09:44 O2 Sat by Pulse Oximetry (%) 96 03/18/18 08:28 Constitutional: Yes: Well Nourished, No Distress, Calm Cardiovascular: Yes: WNL, Regular Rate and Rhythm Respiratory: Yes: Regular, CTA Bilaterally, Diminished. No: Rhonchi, SOB, Tachypnea, Wheezes Gastrointestinal: Yes: WNL, Normal Bowel Sounds, Soft. No: Distention, Tenderness Genitourinary: Yes: WNL Edema: No Neurological: Yes: WNL, Alert, Oriented Psychiatric: Yes: WNL, Alert, Oriented Labs: CBC, BMP 03/18/18 05:30 03/18/18 05:30 Assessment/Plan (1) Gastritis Assessment/Plan: diet downgraded to full liquids due to intolerance EGD pending cardiac clearance continue protonix GI following Code(s): K29.70 - GASTRITIS, UNSPECIFIED, WITHOUT BLEEDING Qualifiers: Gastritis type: unspecified gastritis Chronicity: acute Gastritis bleeding: without bleeding Qualified Code(s): K29.00 - Acute gastritis without bleeding (2) Pericardial effusion without cardiac tamponade Assessment/Plan: continue colchicine and ibuprofen repeat echo today without improvement of effusion Code(s): I31.3 - PERICARDIAL EFFUSION (NONINFLAMMATORY) (3) Pleural effusion Assessment/Plan: small, monitor pt asymptomatic Code(s): J90 - PLEURAL EFFUSION, NOT ELSEWHERE CLASSIFIED (4) GERD (gastroesophageal reflux disease) Assessment/Plan: continue ppi Code(s): K21.9 - GASTRO-ESOPHAGEAL REFLUX DISEASE WITHOUT ESOPHAGITIS Qualifiers: Esophagitis presence: without esophagitis Qualified Code(s): K21.9 - Gastro -esophageal reflux disease without esophagitis (5) Hypertension Assessment/Plan: controlled continue home meds Code(s): I10 - ESSENTIAL (PRIMARY) HYPERTENSION Qualifiers: Hypertension type: essential hypertension Qualified Code(s): I10 - Essential (primary) hypertension (6) Hyponatremia Assessment/Plan: resolved Code(s): E87.1 - HYPO-OSMOLALITY AND HYPONATREMIA (7) Hypokalemia Assessment/Plan: mild continue kcl abel monitor bmp
--- NOTE | 2018-03-18 11:33 | PN ---
Progress Note (short form) - Note Progress Note: cc: nausea s: no chest discomfort, dyspnea. no palps, dizzy, lightheadedness; ate regular breakfast and then had loose bm and upset stomach right after Current Medications Generic Name Dose Route Start Last Admin Trade Name Freq PRN Reason Stop Dose Admin Colchicine 0.6 mg 03/16/18 10:00 03/18/18 09:19 Colcrys - PO 0.6 mg BID [facility] Administration Ibuprofen 600 mg 03/16/18 09:00 03/18/18 09:19 Motrin - PO 600 mg PC [facility] Administration Metoprolol Succinate 25 mg 03/16/18 10:00 03/18/18 09:19 Toprol Xl - PO 25 mg DAILY [facility] Administration Ondansetron HCl 8 mg 03/16/18 07:55 Zofran Injection IVPB Q8H PRN NAUSEA Pantoprazole Sodium 40 mg 03/16/18 09:29 03/18/18 09:19 Protonix Iv IVPUSH 40 mg BID [facility] Administration Potassium Chloride 10 meq 03/16/18 10:00 03/18/18 09:19 K-Dur - PO 10 meq DAILY [facility] Administration Simethicone 80 mg 03/18/18 10:02 Mylicon - PO QID PRN GAS Vital Signs: Vital Signs Period Temp Pulse Resp BP Sys/Hurtado Pulse Ox Last 24 Hr 97.3 F-98.3 F 90-109 20-20 122-157/80-106 96-96 Constitutional: Yes: Well Nourished, No Distress Eyes: No: Sclera Icterus Respiratory: Yes: CTA Bilaterally, Diminished (bases), Rales (L base). No: Accessory Muscle Use, Wheezes Gastrointestinal: Yes: Normal Bowel Sounds. No: Distention, Hepatomegaly, Palpable Mass, Tenderness Cardiovascular: Yes: Regular Rate and Rhythm Heart Sounds: Yes: S1, S2. No: Gallop, Rub Murmur: No: Systolic Murmur, Diastolic Murmur Extremities: No: Cool, Cyanosis Edema: No Integumentary: No: Jaundice Neurological: Yes: Alert, Oriented (x3) Psychiatric: No: Agitated CBC, BMP 03/18/18 05:30 03/18/18 05:30 Assessment/Plan ECG: sinus, no ischemic changes CT chest (03/14): new RUQ soft tissue edema, small amount R perirenal fluid, ? peripancreatic edema/trace pericholecystic. partially imaged peric effusion probably at least moderate--appears increased vs 03/09 CT. new small-moderate bilat pleural effusions. unchanged L posterior basilar opacity c/w infiltrate and/or ATX Echo 03/15: nl LVSF. nl RVSF. small peric effusion (<1cm)--no change in appearance vs 03/10. + excess MV and TV inflow velocity variation during respiratory cycle--possibly early echo tamponade finding (no RV or RA free wall diast collapse). Echo 03/10/18: nl LV/EF. nl RV. nl LA. valves WNL. no pulm HTN. small peric effusion MPI 02/2018: nl mpi, nl lvef tele: sr nausea, abd tenderness, small free fluid in abdomen: -? post-viral gastroparesis per GI business analysis consultant. also want to r/o PUD based on CT adomen fluid near stomach - plan is egd per GI. will repeat echo today and if pericardial eff is stable then no cardiac contraindications to EGD. 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 -echo images reviewed by Dr. Cabrera: effusion appears grossly stable in size vs last week study (last week's TDS however). small-moderate size (max dimension up to 1.2-1.3 cm in some views). no RV free wall collapse seen, however marked resp variation in TV inflow velocities (approx 50%), less marked findings in MV inflow velocities, suggestive of tamponade physiology. -mild JVD, HJR present, suggesting elevated right sided cardiac pressures -clinically no tamponade, BP/HR remains stable -unclear if pleuropericarditis with high right heart filling pressures explains the peritoneal findings--? passive congestion -will start colchicine 0.6mg bid (decr to qd if diarrhea develops) - on ibuprofen, pt guaiac neg and not anemic, Dr. Alvarenga GI following, on PPI as well - holding amlodipine to minimize risk of hypotension - no diuretics, no IVF for now (fluids will be needed if bp drops) - repeat echo today to reassess effusion - deferring CT surg consult for window, pt is asymptomatic and normotensive HTN: -bp controlled, no low's -holding amlodipine
--- NOTE | 2018-03-18 12:16 | ECHO ---
Name: CLARA HANSEN Exam:Adult Echocardiogram Study Date: 03/18/2018 11:17 AM Age: 87 yrs Reason For Study: CHECK PERICARDIAL EFFUSION Height: 61 in Weight: 128 lb BSA: 1.6 m2 Left Ventricle Left ventricular systolic function is normal. No evidence of diastolic RA or RV collapse to suggest f rank tamponade. Clinical correlation is required. Right Ventricle The right ventricular systolic function is grossly normal. Pericardium/Pleura Compared to previous study 03/15/18, there is no significant change in the size of the pericardial ef fusion. Small to moderate pericardial effusion measuring just over 1cm. Interpretation Summary Compared to previous study 03/15/18, there is no significant change in the size of the pericardial ef fusion. Small to moderate pericardial effusion measuring just over 1cm. Left ventricular systolic function is normal. The right ventricular systolic function is grossly normal. No evidence of diastolic RA or RV collapse to suggest asha tamponade. Clinical correlation is requir ed. MD Meehan *Rosio 03/18/2018 12:16 PM
[2018-03-19 06:55] LABS: BASO % 0.6 % (0-2.0); EOS % 1.2 % (0-4.5); HEMATOCRIT 34.9 % (32.4-45.2); HEMOGLOBIN 12.3 GM/dL (10.7-15.3); LYMPH % 12.9 % (8-40); MCH 30.7 pg (25.7-33.7); MCHC 35.1 g/dl (32.0-36.0); MEAN CELL VOLUME 87.5 fl (80-96); MEAN PLT VOLUME 6.9 fl (7.5-11.1); MONO % 10.2 % (3.8-10.2); NEUT % 75.1 % (42.8-82.8); PLATELET COUNT 398 K/MM3 (134-434); RBC 3.99 M/mm3 (3.60-5.2); RDW 13.2 % (11.6-15.6)
[2018-03-19 07:09] LABS: ANION GAP 9 MMOL/L (8-16); BLOOD UREA NITROGEN 10 mg/dL (7-18); CALCIUM 8.3 mg/dL (8.5-10.1); CHLORIDE 100 mmol/L (98-107); CO2 28 mmol/L (21-32); CREATININE 1.1 mg/dL (0.55-1.3); GLUCOSE,RANDOM 88 mg/dL (74-106); MAGNESIUM 1.8 mg/dL (1.8-2.4); POTASSIUM 3.4 mmol/L (3.5-5.1); SODIUM 136 mmol/L (136-145)
--- NOTE | 2018-03-19 07:57 | PN ---
Progress Note, Physician Chief Complaint: Nausea improved no vomiting, denies any abd pain - Current Medication List Current Medications: Active Medications Colchicine (Colcrys -) 0.6 mg PO BID [facility] Last Admin: 03/18/18 21:30 Dose: 0.6 mg Ibuprofen (Motrin -) 600 mg PO PC [facility] Last Admin: 03/18/18 17:32 Dose: 600 mg Metoprolol Succinate (Toprol Xl -) 25 mg PO DAILY [facility] Last Admin: 03/18/18 09:19 Dose: 25 mg Ondansetron HCl (Zofran Injection) 8 mg IVPB Q8H PRN PRN Reason: NAUSEA Pantoprazole Sodium (Protonix Iv) 40 mg IVPUSH BID [facility] Last Admin: 03/18/18 21:30 Dose: 40 mg Potassium Chloride (K-Dur -) 10 meq PO DAILY [facility] Last Admin: 03/18/18 09:19 Dose: 10 meq Simethicone (Mylicon -) 80 mg PO QID PRN PRN Reason: GAS - Objective Vital Signs: Vital Signs Temperature 97.9 F 03/19/18 06:00 Pulse Rate 86 03/19/18 06:00 Respiratory Rate 20 03/19/18 06:00 Blood Pressure 140/90 03/19/18 06:00 O2 Sat by Pulse Oximetry (%) 96 03/18/18 21:00 Elderly F sitting comfortably not in distress HEENT: Mm moist, no anemia, PERRLA, EOMI NECK: No JVD No Bruit CHEST: B/L Minimal basal crepts decrease AE on Left side CVS; s1S2 R no m/g/r ABD: Soft non tender Bs + EXT: No edema feet, no calf tenderness Pulses + ONCOLOGY PHYSICIAN: AOX3 non focal Labs: CBC, BMP 03/19/18 05:30 03/19/18 05:30 Problem List - Problems (1) Nausea & vomiting Assessment/Plan: Improved abdomen benign exam normal LFTs HIDA -ve, nor,mal ultrasound on PPI advance as tolerates. possible Code(s): R11.2 - NAUSEA WITH VOMITING, UNSPECIFIED Qualifiers: Vomiting type: unspecified Vomiting Intractability: non-intractable Qualified Code(s): R11.2 - Nausea with vomiting, unspecified (2) Pericardial effusion Assessment/Plan: Mild to moderate recent Rhino Virus + on NSAID and Colchicine , serial ECHO shows stable effusion. Code(s): I31.3 - PERICARDIAL EFFUSION (NONINFLAMMATORY) (3) Pleural effusion Assessment/Plan: Most likely pleuro pericaditis due to Viral infection Code(s): J90 - PLEURAL EFFUSION, NOT ELSEWHERE CLASSIFIED (4) Hypertension Assessment/Plan: Well controlled hold amlodipine Code(s): I10 - ESSENTIAL (PRIMARY) HYPERTENSION Qualifiers: Hypertension type: essential hypertension Qualified Code(s): I10 - Essential (primary) hypertension (5) GERD (gastroesophageal reflux disease) Assessment/Plan: on PPI, awaiting Cardiology clearance for EGD Code(s): K21.9 - GASTRO-ESOPHAGEAL REFLUX DISEASE WITHOUT ESOPHAGITIS Qualifiers: Esophagitis presence: without esophagitis Qualified Code(s): K21.9 - Gastro -esophageal reflux disease without esophagitis (6) Hyponatremia Assessment/Plan: Resolved Code(s): E87.1 - HYPO-OSMOLALITY AND HYPONATREMIA (7) Hypokalemia Assessment/Plan: PO Kcl f/u BMP Code(s): E87.6 - HYPOKALEMIA
[2018-03-19] MEDS: metoPROLOL SUCCINATE 25 MG TAB.SR.24H (FP) PO SCH (09:27)
[2018-03-19] MEDS: IBUPROFEN 600 MG TABLET (FP) PO SCH ×3 (09:27→17:42)
[2018-03-19] MEDS: POTASSIUM CHLORIDE TABS 10 MEQ TABLET.ER (FP) PO SCH (09:27)
[2018-03-19] MEDS: COLCHICINE 0.6 MG TABLET (FP) PO SCH ×2 (09:27→22:26)
[2018-03-19] MEDS: PANTOPRAZOLE SODIUM 40 MG VIAL IVPUSH SCH ×2 (09:27→22:28)
--- NOTE | 2018-03-19 11:24 | PN ---
Progress Note (short form) - Note Progress Note: Progress Note: cc: nausea s: no cp, palps, dizzy, lightheadedness. complains of loose bm's yesterday Current Medications Colchicine (Colcrys -) 0.6 mg PO BID [facility] Last Admin: 03/19/18 09:27 Dose: 0.6 mg Ibuprofen (Motrin -) 600 mg PO PC [facility] Last Admin: 03/19/18 09: Dose: 600 mg Metoprolol Succinate (Toprol Xl -) 25 mg PO DAILY [facility] Last Admin: 03/19/18: Dose: 25 mg Ondansetron HCl (Zofran Injection) 8 mg IVPB Q8H PRN PRN Reason: NAUSEA Pantoprazole Sodium (Protonix Iv) 40 mg IVPUSH BID [facility] Last Admin: 03/19/18 09: Dose: 40 mg Potassium Chloride (K-Dur -) 10 meq PO DAILY [facility] Last Admin: 03/19/18 09: Dose: 10 meq Simethicone (Mylicon -) 80 mg PO QID PRN PRN Reason: GAS Last Admin: 03/19/18 09: Dose: 80 mg Vital Signs: Vital Signs Period Temp Pulse Resp BP Sys/Hurtado Pulse Ox Last 24 Hr 97.3 F-98.6 F 77-101 20-20 128-147/72-95 96-96 Constitutional: Yes: Well Nourished, No Distress Eyes: No: Sclera Icterus Respiratory: Yes: CTA Bilaterally, Diminished (bases), Rales (L base). No: Accessory Muscle Use, Wheezes Gastrointestinal: Yes: Normal Bowel Sounds. No: Distention, Hepatomegaly, Palpable Mass, Tenderness Cardiovascular: Yes: Regular Rate and Rhythm Heart Sounds: Yes: S1, S2. No: Gallop, Rub Murmur: No: Systolic Murmur, Diastolic Murmur Extremities: No: Cool, Cyanosis Edema: No Integumentary: No: Jaundice Neurological: Yes: Alert, Oriented (x3) Psychiatric: No: Agitated Assessment/Plan ECG: sinus, no ischemic changes CT chest (03/14): new RUQ soft tissue edema, small amount R perirenal fluid, ? peripancreatic edema/trace pericholecystic. partially imaged peric effusion probably at least moderate--appears increased vs 03/09 CT. new small-moderate bilat pleural effusions. unchanged L posterior basilar opacity c/w infiltrate and/or ATX Echo 03/15: nl LVSF. nl RVSF. small peric effusion (<1cm)--no change in appearance vs 03/10. + excess MV and TV inflow velocity variation during respiratory cycle--possibly early echo tamponade finding (no RV or RA free wall diast collapse). Echo 03/10/18: nl LV/EF. nl RV. nl LA. valves WNL. no pulm HTN. small peric effusion repeat echo 03/18 no significant change in size of pericardial effusion, no signs of tamponade. MPI 02/2018: nl mpi, nl lvef tele: sr nausea, abd tenderness, small free fluid in abdomen: -? post-viral gastroparesis per GI cardiology consultant. also want to r/o PUD based on CT adomen fluid near stomach - plan is egd per GI. - stable effusion on repeat echo, stable vital signs and asymptomatic - no cardiac contraindications to EGD. 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 -echo images reviewed by Dr. Cabrera: effusion appears grossly stable in size vs last week study (last week's TDS however). small-moderate size (max dimension up to 1.2-1.3 cm in some views). no RV free wall collapse seen, however marked resp variation in TV inflow velocities (approx 50%), less marked findings in MV inflow velocities, suggestive of tamponade physiology. -mild JVD, HJR present, suggesting elevated right sided cardiac pressures -clinically no tamponade, BP/HR remains stable -unclear if pleuropericarditis with high right heart filling pressures explains the peritoneal findings--? passive congestion - continue colchicine 0.6mg bid (decr to qd if diarrhea develops) - on ibuprofen, pt guaiac neg and not anemic, Dr. Alvarenga GI following, on PPI as well - holding amlodipine to minimize risk of hypotension - no diuretics, no IVF for now (fluids will be needed if bp drops) - repeat echo shows stable effusion, remains clinically stable and asymptomatic - deferring CT surg consult for window, pt is asymptomatic and normotensive HTN: -bp controlled, no low's -holding amlodipine
[2018-03-19] MEDS: ONDANSETRON 4 MG/2 ML VIAL IVPB PRN (14:15)
--- NOTE | 2018-03-19 17:24 | PN ---
GI Progress Note Subjective: GI NOte: Has not yet tolerated solids but is now willing to try. Having diarrhea which may be the colchicine. Kelly does not want to go home until her the CT abnormalities in her duodenum are investigated. I have therefore informed her of the risks of perforation and hemorrhage associated with EGD after which she has signed an informed consent. - Objective Vital Signs: Vital Signs Temperature 97.9 F 03/19/18 14:00 Pulse Rate 84 03/19/18 14:00 Respiratory Rate 20 03/19/18 14:00 Blood Pressure 114/56 L 03/19/18 14:00 O2 Sat by Pulse Oximetry (%) 96 03/19/18 09:00 ...Auscultate: Yes: Normoactive Bowel Sounds ...Palpate: Yes: Soft ...Percussion: Yes: Other (nontender) Labs: CBC, BMP 03/19/18 05:30 03/19/18 05:30 Problem List - Problems (1) Nausea & vomiting Assessment/Plan: EGD arranged for 03/21. I informed Moraima of the potential for such complications as perforation and hemorrhage. She has signed an informed consent. I have scheduled it for 03/21 if cardiology clearance is given. I have ordered solids. Code(s): R11.2 - NAUSEA WITH VOMITING, UNSPECIFIED Qualifiers: Vomiting type: unspecified Vomiting Intractability: non-intractable Qualified Code(s): R11.2 - Nausea with vomiting, unspecified (2) Diverticula of colon Code(s): K57.30 - DVRTCLOS OF LG INT W/O PERFORATION OR ABSCESS W/O BLEEDING (3) Gastric polyp Code(s): K31.7 - POLYP OF STOMACH AND DUODENUM (4) Gastritis Code(s): K29.70 - GASTRITIS, UNSPECIFIED, WITHOUT BLEEDING Qualifiers: Gastritis type: unspecified gastritis Chronicity: acute Gastritis bleeding: without bleeding Qualified Code(s): K29.00 - Acute gastritis without bleeding (5) Pleural effusion Code(s): J90 - PLEURAL EFFUSION, NOT ELSEWHERE CLASSIFIED (6) Chest pain Code(s): R07.9 - CHEST PAIN, UNSPECIFIED
[2018-03-20 07:25] LABS: BASO % 0.9 % (0-2.0); EOS % 0.7 % (0-4.5); HEMATOCRIT 33.3 % (32.4-45.2); HEMOGLOBIN 11.9 GM/dL (10.7-15.3); LYMPH % 10.6 % (8-40); MCHC 35.6 g/dl (32.0-36.0); MEAN CELL VOLUME 87.2 fl (80-96); MEAN PLT VOLUME 7.1 fl (7.5-11.1); MONO % 9.5 % (3.8-10.2); NEUT % 78.3 % (42.8-82.8); PLATELET COUNT 359 K/MM3 (134-434); RBC 3.83 M/mm3 (3.60-5.2); RDW 13.3 % (11.6-15.6); WHITE BLOOD COUNT 7.5 K/mm3 (4.0-10.0)
--- NOTE | 2018-03-20 07:58 | PN ---
Progress Note, Physician Chief Complaint: Nausea improved no vomiting, denies any abd pain - Current Medication List Current Medications: Active Medications Colchicine (Colcrys -) 0.6 mg PO BID [facility] Last Admin: 03/19/18 22:26 Dose: 0.6 mg Ibuprofen (Motrin -) 600 mg PO PC [facility] Last Admin: 03/19/18 17:42 Dose: Not Given Metoprolol Succinate (Toprol Xl -) 25 mg PO DAILY [facility] Last Admin: 03/19/18 09:27 Dose: 25 mg Ondansetron HCl (Zofran Injection) 8 mg IVPB Q8H PRN PRN Reason: NAUSEA Last Admin: 03/19/18 14:15 Dose: 8 mg Pantoprazole Sodium (Protonix Iv) 40 mg IVPUSH BID [facility] Last Admin: 03/19/18 22:28 Dose: 40 mg Potassium Chloride (K-Dur -) 10 meq PO DAILY [facility] Last Admin: 03/19/18 09:27 Dose: 10 meq Simethicone (Mylicon -) 80 mg PO QID PRN PRN Reason: GAS Last Admin: 03/19/18 09:27 Dose: 80 mg - Objective Vital Signs: Vital Signs Temperature 98.1 F 03/20/18 05:30 Pulse Rate 90 03/20/18 05:30 Respiratory Rate 20 03/20/18 05:30 Blood Pressure 126/89 03/20/18 05:30 O2 Sat by Pulse Oximetry (%) 95 03/19/18 20:05 Elderly F sitting comfortably not in distress HEENT: Mm moist, no anemia, PERRLA, EOMI NECK: No JVD No Bruit CHEST: B/L Minimal basal crepts CVS; s1S2 R no m/g/r ABD: Soft non tender Bs + EXT: No edema feet, no calf tenderness Pulses + NEEDLE MOLDER: AOX3 non focal Labs: CBC, BMP 03/20/18 05:30 03/20/18 05:30 Problem List - Problems (1) Nausea & vomiting Assessment/Plan: Improved abdomen benign exam normal LFTs HIDA -ve, nor,mal ultrasound on PPI advance as tolerates. possible, schedule for EGD in am cleared by Cardiology Code(s): R11.2 - NAUSEA WITH VOMITING, UNSPECIFIED Qualifiers: Vomiting type: unspecified Vomiting Intractability: non-intractable Qualified Code(s): R11.2 - Nausea with vomiting, unspecified (2) Pericardial effusion Assessment/Plan: Mild to moderate recent Rhino Virus + on NSAID and Colchicine , serial ECHO shows stable effusion. Code(s): I31.3 - PERICARDIAL EFFUSION (NONINFLAMMATORY) (3) Pleural effusion Assessment/Plan: Most likely pleuro pericaditis due to Viral infection Code(s): J90 - PLEURAL EFFUSION, NOT ELSEWHERE CLASSIFIED (4) Hypertension Assessment/Plan: Well controlled hold amlodipine Code(s): I10 - ESSENTIAL (PRIMARY) HYPERTENSION Qualifiers: Hypertension type: essential hypertension Qualified Code(s): I10 - Essential (primary) hypertension (5) GERD (gastroesophageal reflux disease) Assessment/Plan: on PPI, schedule for EGD in am cleared by Cardiology Code(s): K21.9 - GASTRO-ESOPHAGEAL REFLUX DISEASE WITHOUT ESOPHAGITIS Qualifiers: Esophagitis presence: without esophagitis Qualified Code(s): K21.9 - Gastro -esophageal reflux disease without esophagitis (6) Hypokalemia Assessment/Plan: PO Kcl f/u BMP Code(s): E87.6 - HYPOKALEMIA
[2018-03-20 08:01] LABS: ANION GAP 9 MMOL/L (8-16); BLOOD UREA NITROGEN 15 mg/dL (7-18); CALCIUM 7.5 mg/dL (8.5-10.1); CHLORIDE 98 mmol/L (98-107); CO2 28 mmol/L (21-32); CREATININE 1.4 mg/dL (0.55-1.3); GLUCOSE,RANDOM 92 mg/dL (74-106); POTASSIUM 3.8 mmol/L (3.5-5.1); SODIUM 135 mmol/L (136-145)
[2018-03-20] MEDS: metoPROLOL SUCCINATE 25 MG TAB.SR.24H (FP) PO SCH (09:50)
[2018-03-20] MEDS: POTASSIUM CHLORIDE TABS 10 MEQ TABLET.ER (FP) PO SCH (09:50)
[2018-03-20] MEDS: COLCHICINE 0.6 MG TABLET (FP) PO SCH (09:50)
[2018-03-20] MEDS: IBUPROFEN 600 MG TABLET (FP) PO SCH ×3 (09:50→18:13)
--- NOTE | 2018-03-20 11:27 | PN ---
Progress Note (short form) - Note Progress Note: Progress Note: cc: nausea s: no cp, palps, dizzy, lightheadedness. complains of loose bm's again today after eating Current Medications Colchicine (Colcrys -) 0.6 mg PO BID [facility] Last Admin: 03/20/18 09:50 Dose: 0.6 mg Ibuprofen (Motrin -) 600 mg PO PC [facility] Last Admin: 03/20/18 09:50 Dose: 600 mg Metoprolol Succinate (Toprol Xl -) 25 mg PO DAILY [facility] Last Admin: 03/20/18 09:50 Dose: 25 mg Ondansetron HCl (Zofran Injection) 8 mg IVPB Q8H PRN PRN Reason: NAUSEA Last Admin: 03/19/18 14:15 Dose: 8 mg Pantoprazole Sodium (Protonix Iv) 40 mg IVPUSH BID [facility] Last Admin: 03/19/18 22:28 Dose: 40 mg Potassium Chloride (K-Dur -) 10 meq PO DAILY [facility] Last Admin: 03/20/18 09:50 Dose: 10 meq Simethicone (Mylicon -) 80 mg PO QID PRN PRN Reason: GAS Last Admin: 03/19/18 09:27 Dose: 80 mg Vital Signs: Vital Signs Period Temp Pulse Resp BP Sys/Hurtado Pulse Ox Last 24 Hr 97.7 F-98.1 F 84-93 18-20 113-126/56-89 95 Constitutional: Yes: Well Nourished, No Distress Eyes: No: Sclera Icterus Respiratory: Yes: CTA Bilaterally, Diminished (bases), Rales (L base). No: Accessory Muscle Use, Wheezes Gastrointestinal: Yes: Normal Bowel Sounds. No: Distention, Hepatomegaly, Palpable Mass, Tenderness Cardiovascular: Yes: Regular Rate and Rhythm Heart Sounds: Yes: S1, S2. No: Gallop, Rub Murmur: No: Systolic Murmur, Diastolic Murmur Extremities: No: Cool, Cyanosis Edema: No Integumentary: No: Jaundice Neurological: Yes: Alert, Oriented (x3) Psychiatric: No: Agitated Assessment/Plan ECG: sinus, no ischemic changes CT chest (03/14): new RUQ soft tissue edema, small amount R perirenal fluid, ? peripancreatic edema/trace pericholecystic. partially imaged peric effusion probably at least moderate--appears increased vs 03/09 CT. new small-moderate bilat pleural effusions. unchanged L posterior basilar opacity c/w infiltrate and/or ATX Echo 03/15: nl LVSF. nl RVSF. small peric effusion (<1cm)--no change in appearance vs 03/10. + excess MV and TV inflow velocity variation during respiratory cycle--possibly early echo tamponade finding (no RV or RA free wall diast collapse). Echo 03/10/18: nl LV/EF. nl RV. nl LA. valves WNL. no pulm HTN. small peric effusion repeat echo 03/18 no significant change in size of pericardial effusion, no signs of tamponade. MPI 02/2018: nl mpi, nl lvef tele: sr nausea, abd tenderness, small free fluid in abdomen: -? post-viral gastroparesis per GI community health consultant. also want to r/o PUD based on CT adomen fluid near stomach - plan is egd per GI. - stable effusion on repeat echo, stable vital signs and remains asymptomatic - no cardiac contraindications to EGD, would proceed as planned without further testing prior to procedure. 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 -echo images reviewed by Dr. Cabrera: effusion appears grossly stable in size vs last week study (last week's TDS however). small-moderate size (max dimension up to 1.2-1.3 cm in some views). no RV free wall collapse seen, however marked resp variation in TV inflow velocities (approx 50%), less marked findings in MV inflow velocities, suggestive of tamponade physiology. - on ibuprofen, pt guaiac neg and not anemic, Dr. Alvarenga GI following, on PPI as well - holding amlodipine to minimize risk of hypotension, no diuretics - repeat echo shows stable effusion, remains clinically stable and asymptomatic , clinically no tamponade, BP/HR remains stable - decrease colchicine to qd as she complains of diarrhea with frequent BMs, cont ibuprofen HTN: -bp controlled, no low's -holding amlodipine
--- NOTE | 2018-03-20 11:42 | PN ---
GI Progress Note Subjective: GI Note: Tolerating solids so far. No diarrhea today. - Objective Vital Signs: Vital Signs Temperature 98 F 03/20/18 09:00 Pulse Rate 93 H 03/20/18 09:00 Respiratory Rate 20 03/20/18 09:00 Blood Pressure 120/74 03/20/18 09:00 O2 Sat by Pulse Oximetry (%) 95 03/19/18 20:05 Constitutional: No Distress ...Auscultate: Yes: Normoactive Bowel Sounds ...Palpate: Yes: Soft, Other (nontender) Labs: CBC, BMP 03/20/18 05:30 03/20/18 05:30 Problem List - Problems (1) Nausea & vomiting Assessment/Plan: EGD arranged for 03/21 if cardiology clearance is given. Discussed case with Dr. Granger. Code(s): R11.2 - NAUSEA WITH VOMITING, UNSPECIFIED Qualifiers: Vomiting type: unspecified Vomiting Intractability: non-intractable Qualified Code(s): R11.2 - Nausea with vomiting, unspecified (2) Diverticula of colon Code(s): K57.30 - DVRTCLOS OF LG INT W/O PERFORATION OR ABSCESS W/O BLEEDING (3) Gastric polyp Code(s): K31.7 - POLYP OF STOMACH AND DUODENUM (4) Gastritis Code(s): K29.70 - GASTRITIS, UNSPECIFIED, WITHOUT BLEEDING Qualifiers: Gastritis type: unspecified gastritis Chronicity: acute Gastritis bleeding: without bleeding Qualified Code(s): K29.00 - Acute gastritis without bleeding (5) Pleural effusion Code(s): J90 - PLEURAL EFFUSION, NOT ELSEWHERE CLASSIFIED (6) Chest pain Code(s): R07.9 - CHEST PAIN, UNSPECIFIED
[2018-03-20] MEDS: PANTOPRAZOLE SODIUM 40 MG VIAL IVPUSH SCH (13:52)
[2018-03-20] MEDS: PANTOPRAZOLE 40 MG TABLET (FP) PO SCH ×2 (14:23→21:15)
--- NOTE | 2018-03-20 17:50 | PN ---
Progress Note, Physician History of Present Illness: Pt with upper abdominal ascites and inflammatory changes, centered around distal stomach and proximal duodenum, pleural effusions and small pericardial effusion, with recent/lingering URI/?viral illness. She is seen and examined in bed in room, reports feeling ok except running to the bathroom frequently. No nausea or pain, has been tolerating soft diet but is NPO after midnight tonight for planned upper endoscopy tomorrow. Has had multiple liquid episodes of diarrhea today. - Current Medication List Current Medications: Active Medications Colchicine (Colcrys -) 0.6 mg PO DAILY [facility] Ibuprofen (Motrin -) 600 mg PO PC [facility] Last Admin: 03/20/18 14:22 Dose: 600 mg Metoprolol Succinate (Toprol Xl -) 25 mg PO DAILY [facility] Last Admin: 03/20/18 09:50 Dose: 25 mg Ondansetron HCl (Zofran Injection) 8 mg IVPB Q8H PRN PRN Reason: NAUSEA Last Admin: 03/19/18 14:15 Dose: 8 mg Pantoprazole Sodium (Protonix -) 40 mg PO BID [facility] Last Admin: 03/20/18 14:23 Dose: 40 mg Potassium Chloride (K-Dur -) 10 meq PO DAILY [facility] Last Admin: 03/20/18 09:50 Dose: 10 meq Simethicone (Mylicon -) 80 mg PO QID PRN PRN Reason: GAS Last Admin: 03/19/18 09:27 Dose: 80 mg - Objective Vital Signs: Vital Signs Temperature 97.7 F 03/20/18 14:00 Pulse Rate 83 03/20/18 14:00 Respiratory Rate 20 03/20/18 14:00 Blood Pressure 114/70 03/20/18 14:00 O2 Sat by Pulse Oximetry (%) 95 03/20/18 09:00 Constitutional: Yes: Well Nourished, No Distress, Calm Eyes: Yes: Conjunctiva Clear, EOM Intact HENT: Yes: Atraumatic, Normocephalic Gastrointestinal: Yes: Soft. No: Distention, Tenderness, Tenderness, Epigastrium, Vomiting ...Rectal Exam: Yes: Deferred Musculoskeletal: No: Joint Stiffness, Joint Swelling Extremities: No: Cool, Cyanosis Integumentary: No: Jaundice, Rash Neurological: Yes: Alert, Oriented Labs: CBC, BMP 03/20/18 05:30 03/20/18 05:30 BUN/Cr up a bit Problem List - Problems (1) Other ascites Assessment/Plan: not primary gallbladder pathology GI to investigate possibility of PUD in antrum/duodenum with scope in am clinically improving from admission exam tolerating soft diet Code(s): R18.8 - OTHER ASCITES (2) Chronic peptic ulcer without hemorrhage or perforation Assessment/Plan: for EGD in am with GI NPO after midnight on PPI Code(s): K27.7 - CHRONIC PEPTIC ULCER, SITE UNSP, W/O HEMORRHAGE OR PERF (3) GERD (gastroesophageal reflux disease) Code(s): K21.9 - GASTRO-ESOPHAGEAL REFLUX DISEASE WITHOUT ESOPHAGITIS Qualifiers: Esophagitis presence: without esophagitis Qualified Code(s): K21.9 - Gastro -esophageal reflux disease without esophagitis (4) Nausea & vomiting Assessment/Plan: resolved Code(s): R11.2 - NAUSEA WITH VOMITING, UNSPECIFIED Qualifiers: Vomiting type: unspecified Vomiting Intractability: non-intractable Qualified Code(s): R11.2 - Nausea with vomiting, unspecified (5) Hyponatremia Assessment/Plan: resolved Code(s): E87.1 - HYPO-OSMOLALITY AND HYPONATREMIA (6) Bilateral pleural effusion Assessment/Plan: CXR Fri night showed improvement, still with some effusions, but overall lungs clearer Code(s): J90 - PLEURAL EFFUSION, NOT ELSEWHERE CLASSIFIED (7) Pericardial effusion without cardiac tamponade Assessment/Plan: echo showed similar to prior last week no clinical evidence of tamponade repeat echo with similar findings, no tamponade cardiology following optimized for EGD Code(s): I31.3 - PERICARDIAL EFFUSION (NONINFLAMMATORY) (8) Hypertension Code(s): I10 - ESSENTIAL (PRIMARY) HYPERTENSION Qualifiers: Hypertension type: essential hypertension Qualified Code(s): I10 - Essential (primary) hypertension
[2018-03-20] MEDS: ONDANSETRON 4 MG/2 ML VIAL IVPB PRN (18:14)
[2018-03-21 06:29] LABS: BASO % 0.5 % (0-2.0); EOS % 0.8 % (0-4.5); HEMATOCRIT 31.6 % (32.4-45.2); HEMOGLOBIN 11.2 GM/dL (10.7-15.3); LYMPH % 6.6 % (8-40); MCHC 35.5 g/dl (32.0-36.0); MEAN CELL VOLUME 87.4 fl (80-96); MEAN PLT VOLUME 7.1 fl (7.5-11.1); MONO % 7.7 % (3.8-10.2); NEUT % 84.4 % (42.8-82.8); PLATELET COUNT 315 K/MM3 (134-434); RBC 3.62 M/mm3 (3.60-5.2); RDW 13.4 % (11.6-15.6)
[2018-03-21 06:57] LABS: ANION GAP 11 MMOL/L (8-16); BLOOD UREA NITROGEN 22 mg/dL (7-18); CALCIUM 7.6 mg/dL (8.5-10.1); CHLORIDE 101 mmol/L (98-107); CO2 25 mmol/L (21-32); CREATININE 1.6 mg/dL (0.55-1.3); GLUCOSE,RANDOM 81 mg/dL (74-106); POTASSIUM 3.8 mmol/L (3.5-5.1); SODIUM 137 mmol/L (136-145)
--- NOTE | 2018-03-21 09:40 | PN ---
Progress Note (short form) - Note Progress Note: Dr. Maddox/[employer] Lyle to document today. For EGD. Echocardiogram 03/18/18 : No acute change in Pericardial Effusion. PCR Nasal swab: + Rhinovirus Patient off NSAID due to lower GFR: 59 to 30.
--- NOTE | 2018-03-21 10:28 | PN ---
Progress Note, Physician - Current Medication List Current Medications: Active Medications Colchicine (Colcrys -) 0.6 mg PO DAILY [facility] Dextrose/Sodium Chloride (D5-1/2ns -) 1,000 mls @ 75 mls/hr IV ASDIR [facility] Metoprolol Succinate (Toprol Xl -) 25 mg PO DAILY [facility] Last Admin: 03/20/18 09:50 Dose: 25 mg Ondansetron HCl (Zofran Injection) 8 mg IVPB Q8H PRN PRN Reason: NAUSEA Last Admin: 03/20/18 18:14 Dose: 8 mg Pantoprazole Sodium (Protonix -) 40 mg PO BID [facility] Last Admin: 03/20/18 21:15 Dose: 40 mg Potassium Chloride (K-Dur -) 10 meq PO DAILY [facility] Last Admin: 03/20/18 09:50 Dose: 10 meq Simethicone (Mylicon -) 80 mg PO QID PRN PRN Reason: GAS Last Admin: 03/19/18 09:27 Dose: 80 mg - Objective Vital Signs: Vital Signs Temperature 97.8 F 03/21/18 06:00 Pulse Rate 90 03/21/18 06:00 Respiratory Rate 20 03/21/18 06:00 Blood Pressure 116/74 03/21/18 06:00 O2 Sat by Pulse Oximetry (%) 95 03/20/18 19:30 Labs: CBC, BMP 03/21/18 05:30 03/21/18 05:30 Assessment/Plan ECG: sinus, no ischemic changes CT chest (03/14): new RUQ soft tissue edema, small amount R perirenal fluid, ? peripancreatic edema/trace pericholecystic. partially imaged peric effusion probably at least moderate--appears increased vs 03/09 CT. new small-moderate bilat pleural effusions. unchanged L posterior basilar opacity c/w infiltrate and/or ATX repeat Echo 03/18 limited study: no significant change in size of pericardial effusion, no signs of tamponade. Echo 03/15: nl LVSF. nl RVSF. small peric effusion (<1cm)--no change in appearance vs 03/10. + excess MV and TV inflow velocity variation during respiratory cycle--possibly early echo tamponade finding (no RV or RA free wall diast collapse). Echo 03/10/18: nl LV/EF. nl RV. nl LA. valves WNL. no pulm HTN. small peric effusion MPI 02/2018: nl mpi, nl lvef nausea, abd tenderness, small free fluid in abdomen: -? post-viral gastroparesis per GI internal control consultant. also want to r/o PUD based on CT adomen fluid near stomach - plan is egd per GI. - stable effusion on repeat echo, stable vital signs and remains asymptomatic - no cardiac contraindications to EGD, would proceed as planned without further testing prior to procedure. 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 -echo images reviewed by Dr. Cabrera: effusion appears grossly stable in size vs last week study (last week's TDS however). moderate size (max dimension up to 1.2-1.3 cm in some views). no RV free wall collapse seen, however marked resp variation in TV inflow velocities (approx 50%), less marked findings in MV inflow velocities, suggestive of tamponade physiology. - creat trending up on NSAIDS, and pt has done this before per dr gill - holding amlodipine to minimize risk of hypotension, no diuretics - repeat echo (after 48-72 hrs of treatment) shows stable effusion. pt remains clinically stable and asymptomatic, clinically no tamponade, BP/HR remains stable - decreased colchicine to qd as she complains of diarrhea - may take 2-4 weeks or more for effusion to significantly reduce in size. HTN: -bp controlled, no low's -holding amlodipine
--- NOTE | 2018-03-21 12:26 | PN ---
Progress Note (short form) - Note Progress Note: GI Procedure NOte: Please see EGD report, A large duodenal bulb ulcer was found. Will need pantoprzole BID until f/u in our office. Avoid NSAIDs. Prednisone is preferable Problem List - Problems (1) Nausea & vomiting Code(s): R11.2 - NAUSEA WITH VOMITING, UNSPECIFIED Qualifiers: Vomiting type: unspecified Vomiting Intractability: non-intractable Qualified Code(s): R11.2 - Nausea with vomiting, unspecified (2) Diverticula of colon Code(s): K57.30 - DVRTCLOS OF LG INT W/O PERFORATION OR ABSCESS W/O BLEEDING (3) Gastric polyp Code(s): K31.7 - POLYP OF STOMACH AND DUODENUM (4) Gastritis Code(s): K29.70 - GASTRITIS, UNSPECIFIED, WITHOUT BLEEDING Qualifiers: Gastritis type: unspecified gastritis Chronicity: acute Gastritis bleeding: without bleeding Qualified Code(s): K29.00 - Acute gastritis without bleeding (5) Pleural effusion Code(s): J90 - PLEURAL EFFUSION, NOT ELSEWHERE CLASSIFIED (6) Chest pain Code(s): R07.9 - CHEST PAIN, UNSPECIFIED
--- NOTE | 2018-03-21 14:31 | PN ---
Progress Note (short form) - Note Progress Note: Progress Note: cc: nausea s: no cp, palps, dizzy, lightheadedness. diarrhea improved Current Medications Al Hydroxide/Mg Hydroxide (Mylanta Oral Suspension -) 30 ml PO Q6H [facility] Colchicine (Colcrys -) 0.6 mg PO DAILY [facility] Dextrose/Sodium Chloride (D5-1/2ns -) 1,000 mls @ 75 mls/hr IV ASDIR [facility] Metoprolol Succinate (Toprol Xl -) 25 mg PO DAILY [facility] Last Admin: 03/20/18 09:50 Dose: 25 mg Ondansetron HCl (Zofran Injection) 8 mg IVPB Q8H PRN PRN Reason: NAUSEA Last Admin: 03/20/18 18:14 Dose: 8 mg Pantoprazole Sodium (Protonix -) 40 mg PO BID [facility] Last Admin: 03/20/18 21:15 Dose: 40 mg Simethicone (Mylicon -) 80 mg PO QID PRN PRN Reason: GAS Last Admin: 03/19/18 09:27 Dose: 80 mg Vital Signs: Vital Signs Period Temp Pulse Resp BP Sys/Hurtado Pulse Ox Last 24 Hr 97.4 F-98.2 F 83-100 20-23 103-120/56-75 95-98 Constitutional: Yes: Well Nourished, No Distress Eyes: No: Sclera Icterus Respiratory: Yes: CTA Bilaterally, Diminished (bases), Rales (L base). No: Accessory Muscle Use, Wheezes Gastrointestinal: Yes: Normal Bowel Sounds. No: Distention, Hepatomegaly, Palpable Mass, Tenderness Cardiovascular: Yes: Regular Rate and Rhythm Heart Sounds: Yes: S1, S2. No: Gallop, Rub Murmur: No: Systolic Murmur, Diastolic Murmur Extremities: No: Cool, Cyanosis Edema: No Integumentary: No: Jaundice Neurological: Yes: Alert, Oriented (x3) Psychiatric: No: Agitated Assessment/Plan ECG: sinus, no ischemic changes CT chest (03/14): new RUQ soft tissue edema, small amount R perirenal fluid, ? peripancreatic edema/trace pericholecystic. partially imaged peric effusion probably at least moderate--appears increased vs 03/09 CT. new small-moderate bilat pleural effusions. unchanged L posterior basilar opacity c/w infiltrate and/or ATX Echo 03/15: nl LVSF. nl RVSF. small peric effusion (<1cm)--no change in appearance vs 03/10. + excess MV and TV inflow velocity variation during respiratory cycle--possibly early echo tamponade finding (no RV or RA free wall diast collapse). Echo 03/10/18: nl LV/EF. nl RV. nl LA. valves WNL. no pulm HTN. small peric effusion repeat echo 03/18 no significant change in size of pericardial effusion, no signs of tamponade. 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 Cabrera: effusion appears grossly stable in size vs last week study (last week's TDS however). small-moderate size (max dimension up to 1.2-1.3 cm in some views). no RV free wall collapse seen, however marked resp variation in TV inflow velocities (approx 50%), less marked findings in MV inflow velocities, suggestive of tamponade physiology. - holding amlodipine to minimize risk of hypotension, no diuretics - repeat echo last week shows stable effusion, remains clinically stable and asymptomatic, clinically no tamponade, BP/HR remains stable - echo prior to discharge to assess stability of effusion, ordered for tomorrow - colchicine decreased to qd as she complains of diarrhea with frequent BMs - NSAIDs stopped due to duodenal ulcer as above. At this point would defer prednisone given clinically improved, may be difficult to taper off. if note increasing size of effusion will consider starting prednisone, will need close outpatient follow up - continue colchicine 0.6 mg daily HTN: -bp controlled, no low's -holding amlodipine NABIL - may be in setting of NSAIDS, hypovolemia (significant diarrhea over the weekend) - Ibuprofen stopped, monitor Cr
--- NOTE | 2018-03-21 16:12 | PN ---
Progress Note, Physician Chief Complaint: Ms Franco says she feels well today. No cp, sob, n/v. - Current Medication List Current Medications: Active Medications Al Hydroxide/Mg Hydroxide (Mylanta Oral Suspension -) 30 ml PO Q6H [facility] Colchicine (Colcrys -) 0.6 mg PO DAILY [facility] Dextrose/Sodium Chloride (D5-1/2ns -) 1,000 mls @ 75 mls/hr IV ASDIR [facility] Metoprolol Succinate (Toprol Xl -) 25 mg PO DAILY [facility] Last Admin: 03/20/18 09:50 Dose: 25 mg Ondansetron HCl (Zofran Injection) 8 mg IVPB Q8H PRN PRN Reason: NAUSEA Last Admin: 03/20/18 18:14 Dose: 8 mg Pantoprazole Sodium (Protonix -) 40 mg PO BID [facility] Last Admin: 03/20/18 21:15 Dose: 40 mg Simethicone (Mylicon -) 80 mg PO QID PRN PRN Reason: GAS Last Admin: 03/19/18 09:27 Dose: 80 mg - Objective Vital Signs: Vital Signs Temperature 36.6 C 03/21/18 14:30 Pulse Rate 86 03/21/18 14:30 Respiratory Rate 20 03/21/18 14:30 Blood Pressure 123/40 L 03/21/18 14:30 O2 Sat by Pulse Oximetry (%) 98 03/21/18 12:47 Constitutional: Yes: Well Nourished, No Distress, Calm Cardiovascular: Yes: Regular Rate and Rhythm. No: Gallop, Murmur, Rub Respiratory: Yes: Regular, CTA Bilaterally. No: Rales, Rhonchi, Wheezes Gastrointestinal: Yes: Normal Bowel Sounds, Soft. No: Distention, Tenderness Extremities: Yes: WNL Edema: No Labs: CBC, BMP 03/21/18 05:30 03/21/18 05:30 Problem List - Problems (1) Gastritis Code(s): K29.70 - GASTRITIS, UNSPECIFIED, WITHOUT BLEEDING Qualifiers: Gastritis type: unspecified gastritis Chronicity: acute Gastritis bleeding: without bleeding Qualified Code(s): K29.00 - Acute gastritis without bleeding (2) Pericardial effusion without cardiac tamponade Code(s): I31.3 - PERICARDIAL EFFUSION (NONINFLAMMATORY) (3) Pleural effusion Code(s): J90 - PLEURAL EFFUSION, NOT ELSEWHERE CLASSIFIED (4) GERD (gastroesophageal reflux disease) Code(s): K21.9 - GASTRO-ESOPHAGEAL REFLUX DISEASE WITHOUT ESOPHAGITIS Qualifiers: Esophagitis presence: without esophagitis Qualified Code(s): K21.9 - Gastro -esophageal reflux disease without esophagitis (5) Hypertension Code(s): I10 - ESSENTIAL (PRIMARY) HYPERTENSION Qualifiers: Hypertension type: essential hypertension Qualified Code(s): I10 - Essential (primary) hypertension (6) Hyponatremia Code(s): E87.1 - HYPO-OSMOLALITY AND HYPONATREMIA (7) NABIL (acute kidney injury) Code(s): N17.9 - ACUTE KIDNEY FAILURE, UNSPECIFIED Assessment/Plan (1) Gastritis with duodenal ulcer Assessment/Plan: -stop ibuprofen -continue protonix Code(s): K29.70 - GASTRITIS, UNSPECIFIED, WITHOUT BLEEDING Qualifiers: Gastritis type: unspecified gastritis Chronicity: acute Gastritis bleeding: without bleeding Qualified Code(s): K29.00 - Acute gastritis without bleeding (2) Pericardial effusion without cardiac tamponade Assessment/Plan: -case d/w cardiology -continue daily colchicine -no ibuprofen -ECHO in am Code(s): I31.3 - PERICARDIAL EFFUSION (NONINFLAMMATORY) (3) Pleural effusion Assessment/Plan: -monitor -currently not short of breath Code(s): J90 - PLEURAL EFFUSION, NOT ELSEWHERE CLASSIFIED (4) GERD (gastroesophageal reflux disease) Assessment/Plan: -continue protonix bid Code(s): K21.9 - GASTRO-ESOPHAGEAL REFLUX DISEASE WITHOUT ESOPHAGITIS Qualifiers: Esophagitis presence: without esophagitis Qualified Code(s): K21.9 - Gastro -esophageal reflux disease without esophagitis (5) Hypertension Assessment/Plan: -controlled -continue current management Code(s): I10 - ESSENTIAL (PRIMARY) HYPERTENSION Qualifiers: Hypertension type: essential hypertension Qualified Code(s): I10 - Essential (primary) hypertension (6) Hyponatremia Assessment/Plan: -stable -continue to monitor Code(s): E87.1 - HYPO-OSMOLALITY AND HYPONATREMIA (7) NABIL -secondary to ibuprofen -stop ibuprofen -hold on IVF as do not want to fluid overload -recheck in am
[2018-03-21] MEDS: DEXTROSE 5%-0.45% SALINE 1,000 ML IV SCH (17:32)
[2018-03-21] MEDS: metoPROLOL SUCCINATE 25 MG TAB.SR.24H (FP) PO SCH (17:35)
[2018-03-21] MEDS: PANTOPRAZOLE 40 MG TABLET (FP) PO SCH ×2 (17:35→22:10)
[2018-03-21] MEDS: COLCHICINE 0.6 MG TABLET (FP) PO SCH (17:35)
[2018-03-21] MEDS: MAG HYDROX/AL HYDROX/SIMETH 30 ML UNIT-DOSE CUP PO SCH ×2 (17:35→19:09)
[2018-03-22] MEDS: MAG HYDROX/AL HYDROX/SIMETH 30 ML UNIT-DOSE CUP PO SCH ×3 (01:00→12:44)
[2018-03-22 07:05] LABS: BASO % 0.4 % (0-2.0); EOS % 1.1 % (0-4.5); HEMATOCRIT 33.6 % (32.4-45.2); LYMPH % 15.5 % (8-40); MCHC 35.7 g/dl (32.0-36.0); MEAN CELL VOLUME 86.8 fl (80-96); MEAN PLT VOLUME 7.2 fl (7.5-11.1); MONO % 9.1 % (3.8-10.2); NEUT % 73.9 % (42.8-82.8); PLATELET COUNT 316 K/MM3 (134-434); RBC 3.87 M/mm3 (3.60-5.2); RDW 13.3 % (11.6-15.6); WHITE BLOOD COUNT 5.4 K/mm3 (4.0-10.0)
[2018-03-22 07:44] LABS: ANION GAP 10 MMOL/L (8-16); BLOOD UREA NITROGEN 19 mg/dL (7-18); CALCIUM 8.1 mg/dL (8.5-10.1); CHLORIDE 101 mmol/L (98-107); CO2 27 mmol/L (21-32); CREATININE 1.3 mg/dL (0.55-1.3); GLUCOSE,RANDOM 84 mg/dL (74-106); MAGNESIUM 1.9 mg/dL (1.8-2.4); PHOSPHOROUS 2.6 mg/dL (2.5-4.9); POTASSIUM 4.3 mmol/L (3.5-5.1); SODIUM 139 mmol/L (136-145)
[2018-03-22] MEDS: DEXTROSE 5%-0.45% SALINE 1,000 ML IV SCH (09:37)
[2018-03-22] MEDS: COLCHICINE 0.6 MG TABLET (FP) PO SCH (09:39)
[2018-03-22] MEDS: PANTOPRAZOLE 40 MG TABLET (FP) PO SCH (09:39)
[2018-03-22] MEDS: metoPROLOL SUCCINATE 25 MG TAB.SR.24H (FP) PO SCH (09:40)
--- NOTE | 2018-03-22 11:44 | ECHO ---
Name: CLARA HANSEN Exam:Adult Echocardiogram Study Date: 03/22/2018 08:48 AM Age: 87 yrs Reason For Study: BARTOLO DONG Height: 61 in Weight: 136 lb BSA: 1.6 m2 Procedure A two-dimensional transthoracic echocardiogram with color flow and Doppler was performed. The patient was in normal sinus rhythm during the exam. Left Ventricle Left ventricular systolic function is grossly normal. Right Ventricle The right ventricular systolic function is grossly normal. Mitral Valve There is mild mitral annular calcification. The mitral valve is normal. Tricuspid Valve The tricuspid valve is not well visualized, but is grossly normal. Aortic Valve There is mild aortic sclerosis.;. The aortic valve opens well. Pericardium/Pleura Small to moderate residual pericardial effusion. Compared to previous study 03/18/18 the size of the pericardial effusion appears to have improved slightly. There is no evidence of diastolic RA or RV collapse. Large left pleural effusion. Interpretation Summary Left ventricular systolic function is grossly normal. The right ventricular systolic function is grossly normal. There is mild mitral annular calcification. Large left pleural effusion. Small to moderate residual pericardial effusion. Compared to previous study 03/18/18 the size of the pericardial effusion appears to have improved slightly. There is no evidence of diastolic RA or RV collapse. MD Hans Carmona 03/22/2018 11:43 AM
--- NOTE | 2018-03-22 12:24 | PN ---
Progress Note (short form) - Note Progress Note: Progress Note: cc: nausea s: no cp, palps, dizzy, lightheadedness. one episode of loose bm. Current Medications Al Hydroxide/Mg Hydroxide (Mylanta Oral Suspension -) 30 ml PO Q6H [facility] Last Admin: 03/22/18 06:18 Dose: 30 ml Colchicine (Colcrys -) 0.6 mg PO DAILY [facility] Last Admin: 03/22/18 09:39 Dose: 0.6 mg Dextrose/Sodium Chloride (D5-1/2ns -) 1,000 mls @ 75 mls/hr IV ASDIR [facility] Last Admin: 03/22/18 09:37 Dose: Not Given Metoprolol Succinate (Toprol Xl -) 25 mg PO DAILY [facility] Last Admin: 03/22/18 09:40 Dose: 25 mg Ondansetron HCl (Zofran Injection) 8 mg IVPB Q8H PRN PRN Reason: NAUSEA Last Admin: 03/20/18 18:14 Dose: 8 mg Pantoprazole Sodium (Protonix -) 40 mg PO BID [facility] Last Admin: 03/22/18 09:39 Dose: 40 mg Simethicone (Mylicon -) 80 mg PO QID PRN PRN Reason: GAS Last Admin: 03/19/18 09:27 Dose: 80 mg Vital Signs: Vital Signs Period Temp Pulse Resp BP Sys/Hurtado Pulse Ox Last 24 Hr 98 F-98.8 F 79-99 18-23 105-135/40-84 97-98 Constitutional: Yes: Well Nourished, No Distress Eyes: No: Sclera Icterus Respiratory: Yes: CTA Bilaterally, Diminished (bases), Rales (L base). No: Accessory Muscle Use, Wheezes Gastrointestinal: Yes: Normal Bowel Sounds. No: Distention, Hepatomegaly, Palpable Mass, Tenderness Cardiovascular: Yes: Regular Rate and Rhythm Heart Sounds: Yes: S1, S2. No: Gallop, Rub Murmur: No: Systolic Murmur, Diastolic Murmur Extremities: No: Cool, Cyanosis Edema: No Integumentary: No: Jaundice Neurological: Yes: Alert, Oriented (x3) Psychiatric: No: Agitated Assessment/Plan ECG: sinus, no ischemic changes CT chest (03/14): new RUQ soft tissue edema, small amount R perirenal fluid, ? peripancreatic edema/trace pericholecystic. partially imaged peric effusion probably at least moderate--appears increased vs 03/09 CT. new small-moderate bilat pleural effusions. unchanged L posterior basilar opacity c/w infiltrate and/or ATX Echo 03/15: nl LVSF. nl RVSF. small peric effusion (<1cm)--no change in appearance vs 03/10. + excess MV and TV inflow velocity variation during respiratory cycle--possibly early echo tamponade finding (no RV or RA free wall diast collapse). Echo 03/10/18: nl LV/EF. nl RV. nl LA. valves WNL. no pulm HTN. small peric effusion repeat echo 03/18 no significant change in size of pericardial effusion, no signs of tamponade. 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 Cabrera: effusion appears grossly stable in size vs last week study (last week's TDS however). small-moderate size (max dimension up to 1.2-1.3 cm in some views). no RV free wall collapse seen, however marked resp variation in TV inflow velocities (approx 50%), less marked findings in MV inflow velocities, suggestive of tamponade physiology. - holding amlodipine to minimize risk of hypotension, no diuretics - repeat echo last week shows stable effusion, remains clinically stable and asymptomatic, clinically no tamponade, BP/HR remains stable - echo prior to discharge to assess stability of effusion, ordered for tomorrow - colchicine decreased to qd as she complains of diarrhea with frequent BMs - NSAIDs stopped due to duodenal ulcer as above. At this point would defer prednisone given clinically improved, may be difficult to taper off. if note increasing size of effusion will consider starting prednisone, will need close outpatient follow up - effusion size slightly decreased today, stable for discharge from cardiac perspective - continue colchicine 0.6 mg daily, follow up with Dr. Joy in one week HTN: -bp controlled, no low's -holding amlodipine NABIL - may be in setting of NSAIDS, hypovolemia (significant diarrhea over the weekend) - Ibuprofen stopped, monitor Cr - resolved
--- NOTE | 2018-03-22 13:02 | DS ---
Physical Examination Vital Signs: Vital Signs Temperature 36.6 C 03/22/18 10:00 Pulse Rate 96 H 03/22/18 10:00 Respiratory Rate 18 03/22/18 10:00 Blood Pressure 127/84 03/22/18 10:00 O2 Sat by Pulse Oximetry (%) 98 03/22/18 09:00 Constitutional: Yes: Well Nourished, No Distress, Calm Cardiovascular: Yes: Regular Rate and Rhythm. No: Gallop, Murmur, Rub Respiratory: Yes: Regular, CTA Bilaterally. No: Rales, Rhonchi, Wheezes Gastrointestinal: Yes: Normal Bowel Sounds, Soft. No: Distention, Tenderness Extremities: Yes: WNL Edema: No Labs: CBC, BMP 03/22/18 05:30 03/22/18 05:30 Discharge Summary Reason For Visit: HYPONATREMIA Current Active Problems NABIL (acute kidney injury) (Acute) Bilateral pleural effusion (Acute) Chronic peptic ulcer without hemorrhage or perforation (Acute) Diverticula of colon (Acute) Gastric polyp (Acute) Gastritis (Acute) Hypokalemia (Acute) Hyponatremia (Acute) Nausea (Acute) Nausea & vomiting (Acute) Other ascites (Acute) PUD (peptic ulcer disease) (Acute) Pericardial effusion (Acute) Pericardial effusion without cardiac tamponade (Acute) Pleural effusion (Acute) Hospital Course: (1) Gastritis with duodenal ulcer Code(s): K29.70 - GASTRITIS, UNSPECIFIED, WITHOUT BLEEDING Qualifiers: Gastritis type: unspecified gastritis Chronicity: acute Gastritis bleeding: without bleeding Qualified Code(s): K29.00 - Acute gastritis without bleeding (2) Pericardial effusion without cardiac tamponade Code(s): I31.3 - PERICARDIAL EFFUSION (NONINFLAMMATORY) (3) Pleural effusion Code(s): J90 - PLEURAL EFFUSION, NOT ELSEWHERE CLASSIFIED (4) GERD (gastroesophageal reflux disease) Code(s): K21.9 - GASTRO-ESOPHAGEAL REFLUX DISEASE WITHOUT ESOPHAGITIS Qualifiers: Esophagitis presence: without esophagitis Qualified Code(s): K21.9 - Gastro -esophageal reflux disease without esophagitis (5) Hypertension Code(s): I10 - ESSENTIAL (PRIMARY) HYPERTENSION Qualifiers: Hypertension type: essential hypertension Qualified Code(s): I10 - Essential (primary) hypertension (6) Hyponatremia Code(s): E87.1 - HYPO-OSMOLALITY AND HYPONATREMIA (7) NABIL Ms Franco is a very pleasant 87 year old female who comes in and was found to have pleural and pericardial effusions, most likely post viral. She was admitted to the hospital and seen by both pulmonary and cardiology. Inflammatory markers were checked and were markedly elevated. She was started on ibuprofen and colchicine. She could only tolerate daily colchicine. She did not tolerate ibuprofen as this caused NABIL. NABIL is improved once stopped. She also developed nausea with vomiting and underwent EGD. She was found to have a large duodenal ulcer. She will be discharged on protonix. She had hyponatremia on admission secondary to nausea and vomiting at home, this resolved with IVF. Currently she is doing well and eager to be discharged home. She is safe for discharge with close follow up. 37 minutes spent in preparation of this discharge. Condition: Good - Instructions Diet, Activity, Other Instructions: resume previous diet and activity Referrals: Santi Cuba MD [Primary Care Provider] - 1 Week Melo Joy MD [Staff Physician] - 1 Week Disposition: HOME - Home Medications Comprehensive Discharge Medication List: Ambulatory Orders Metoprolol Succinate 25 mg PO DAILY 03/09/18 Potassium Chloride 10 meq PO DAILY 03/09/18 Ascorbic Acid [C-500] 500 mg PO DAILY 03/15/18 Beta-Carotene(A)-Vits C and E [E-400 C-500 & Beta Carotene] 1 tab PO DAILY 03/15 Biotin 5,000 mcg PO DAILY 03/15/18 Calcium Carb, Citrate/Vit D3 [Calcium + D3 ER Tablet] 1 tab PO DAILY 03/15/18 Co Q-10 100 mg Softgel 100 mg PO DAILY 03/15/18 Ferrous Sulfate [Feosol] 350 mg PO DAILY 03/15/18 Flaxseed Oil [Flaxseed] 1,000 mg PO DAILY 03/15/18 Luz Maria Root 550 mg PO DAILY 03/15/18 Glucosamine/MSM/Chondroitin A [Glucosamine Chondroit MSM Tab] 1 tab PO DAILY Magnesium 250 mg PO DAILY 03/15/18 Zinc 15 mg Lozenges 15 mg PO DAILY 03/15/18 Colchicine [Colcrys -] 0.6 mg PO DAILY #90 tablet 03/22/18 Pantoprazole Sodium [Protonix -] 40 mg PO BID #60 tablet.ec 03/22/18
[2018-03-22 15:49] VITALS: BP 126/78; PULSE 78; TEMP 97.6
--- NOTE | 2018-03-22 16:28 | PATH ---
Surgical Pathology Report Patient Name: CLARA HANSEN Med. Rec. #: [id number] /Age/Gender: 1930 (Age: 87) / F Account: [id number] Location: 4 TELEMETRY U Taken: 03/21/2018 Received: 03/21/2018 Reported: 03/22/2018 Physicians: Tani Dillon M.D. Specimen(s) Received A: BX 2ND PORTION DUODENUM AND BULB B: BX ANTRUM AND BODY Clinical History Vomiting, abnormal CAT scan Postoperative diagnosis: Duodenal bulb ulcer, hiatal hernia, gastritis, candidal esophagitis Final Diagnosis A. DUODENUM, SECOND PORTION AND BULB, BIOPSY: DUODENAL MUCOSA WITH ACUTE AND CHRONIC DUODENITIS AND MILD WILLAM'S GLAND HYPERPLASIA. B. STOMACH, ANTRUM AND BODY, BIOPSY: GASTRIC ANTRAL AND BODY MUCOSA WITH MILD CHRONIC GASTRITIS. IMMUNOHISTOCHEMICAL STAIN FOR H. PYLORI IS NEGATIVE. Electronically Signed Jessica Bustamante M.D. Gross Description A. Received in formalin, labeled "biopsy second portion of duodenum and bulb" are 3 benjamin, irregular portions of soft tissue ranging from 0.3-0.4 cm. in greatest dimension. The specimens are submitted in toto in one cassette. B. Received in formalin, labeled "biopsy antrum and body" are 2 benjamin, irregular portions of soft tissue measuring 0.3 and 0.6 cm. in greatest dimension. The specimens are submitted in toto in one cassette. 03/21/2018 [place]03/21/2018
--- NOTE | 2018-03-22 16:38 | PATH ---
Cytology Non-Gynecological Report Patient Name: CLARA HANSEN Med. Rec. #: [id number] /Age/Gender: 1930 (Age: 87) / F Account: [id number] Location: 4 TELEMETRY U Taken: 03/21/2018 Received: 03/21/2018 Reported: 03/22/2018 Physicians: Tani Dillon M.D. Specimen(s) Received ESOPHAGEAL BRUSH Clinical History Esophageal candidiasis Final Diagnosis ESOPHAGEAL BRUSHING FOR CYTOLOGY: SATISFACTORY FOR EVALUATION. SQUAMOUS CELLS WITH REACTIVE CELLULAR CHANGES. ALLIE SPECIES. SQUAMOUS CELLS WITH REACTIVE CELLULAR CHANGES NOTED. NEUTROPHILS PRESENT. FUNGAL FORMS MORPHOLOGICALLY CONSISTENT WITH ALLIE SPECIES PRESENT. Electronically Signed Jessica Bustamante M.D. Gross Description Received brush and 1 direct smear in approximately 30 cc of 50% alcohol. Additional slide prepared and Pap stained. One cellblock prepared.
== END 2018-03-22 17:21 | disposition home or self-care (01) | DRG 187 ==
LOC: JER 11:32 → JERBED 18:13 → UNDOADMOB 18:13 → JERBED 22:01 → OBSVTOIN 22:01 → J8W 03-15 07:06 → J4W 03-15 20:17
PROVIDERS: ADMIT Internal Medicine; ATTEND Internal Medicine
PROC: 0DD98ZX Extraction of Duodenum, Via Natural or Artificial Opening Endoscopic, Diagnostic (ICD-10-PCS; 2018-03-21)
PROC: 0DD68ZX Extraction of Stomach, Via Natural or Artificial Opening Endoscopic, Diagnostic (ICD-10-PCS; 2018-03-21)
PROC: 0DD58ZX Extraction of Esophagus, Via Natural or Artificial Opening Endoscopic, Diagnostic (ICD-10-PCS; principal; 2018-03-21 12:00)
DX: J90 Pleural effusion, not elsewhere classified (principal); E87.1 Hypo-osmolality and hyponatremia; I31.3 Pericardial effusion (noninflammatory); J98.11 Atelectasis; N17.9 Acute kidney failure, unspecified; B37.81 Candidal esophagitis; R18.8 Other ascites; E86.0 Dehydration; I10 Essential (primary) hypertension; E78.5 Hyperlipidemia, unspecified; K21.9 Gastro-esophageal reflux disease without esophagitis; G47.00 Insomnia, unspecified; E87.6 Hypokalemia; K31.7 Polyp of stomach and duodenum; R11.2 Nausea with vomiting, unspecified; K57.30 Diverticulosis of large intestine without perforation or abscess without bleeding; R07.9 Chest pain, unspecified; K44.9 Diaphragmatic hernia without obstruction or gangrene; K26.9 Duodenal ulcer, unspecified as acute or chronic, without hemorrhage or perforation; N28.1 Cyst of kidney, acquired; K29.50 Unspecified chronic gastritis without bleeding; K29.80 Duodenitis without bleeding
CPT/HCPCS: 36415; 71045-TC-FY; 71046-TC-FY; 74177-TC; 76705-TC; 78226-TC; 80048; 80051; 80053; 81003; 82570; 83690; 83735; 83880; 83930; 83935; 84100; 84300; 84443; 84484; 84550; 85025; 85651; 86038; 86140; 86431; 87070; 87086; 87205; 87633; 87804; 87899; 88104; 88305-TC; 93005; 93010; 93306-TC; 99283-25; A9537; J1644; J7030

== ENCOUNTER 2018-09-09 07:47 | Day surgery (SDC) | payer OTHER, BC ==
[2018-09-08 11:36] VITALS: BMI 22.8
[2018-09-09 09:33] VITALS: TEMP 97.9
[2018-09-09 10:44] VITALS: BP 143/82; PULSE 63
--- NOTE | 2018-09-12 18:14 | PATH ---
Surgical Pathology Report Patient Name: CLARA HANSEN [facility]. Rec. #: [id number] /Age/Gender: 1930 (Age: 88) / F Account: [id number] Location: [facility]-ENDOSCOPY Taken: 09/09/2018 Received: 09/09/2018 Reported: 09/12/2018 Physicians: Ligia Alvarenga M.D. Specimen(s) Received ANTRUM Clinical History Status post duodenal ulcer, screening Postoperative diagnosis: Hiatal hernia, healed duodenal ulcer Final Diagnosis ANTRUM, BIOPSY: GASTRIC MUCOSA WITH CHRONIC GASTRITIS. IMMUNOSTAIN FOR H. PYLORI IS NEGATIVE. NEGATIVE FOR INTESTINAL METAPLASIA. Electronically Signed Elisha Espino M.D. Gross Description Received in formalin, labeled "biopsy antrum" are 4 benjamin, irregular portions of soft tissue ranging from 0.3-0.4 cm. in greatest dimension. The specimens are submitted in toto in one cassette. /09/09/2018 [place]udi09/09/2018
== END 2018-09-09 11:00 | disposition home or self-care (01) ==
LOC: JASU-ENDO 07:47
PROVIDERS: ATTEND Internal Medicine Gastroenterology
PROC: 0DB68ZX Excision of Stomach, Via Natural or Artificial Opening Endoscopic, Diagnostic (ICD-10-PCS; principal; 2018-09-09 08:45)
DX: K29.50 Unspecified chronic gastritis without bleeding (principal); K44.9 Diaphragmatic hernia without obstruction or gangrene
CPT/HCPCS: 88305-TC; 88342-TC